=== PATIENT | female | born 1965 | race Caucasian/White ===

== ENCOUNTER 2021-06-18 21:03 | Inpatient (IN) ==
[2021-06-18] MEDS ORDERED: SODIUM CHLORIDE 0.9% 1000ML 1,000 ML IV SCH (21:30)
[2021-06-18 21:32] LABS: iSTAT Creatinine 0.6 mg/dl (0.6-1.3); iSTAT Hemoglobin 12.6 g/dl (12.0-16.0); iSTAT Ionized Calcium 1.2 mmol/l (1.12-1.32); iSTAT Potassium 3.9 mmol/L (3.3-5.0)
[2021-06-18 21:37] LABS: Basophils # (auto) 0.01 K/uL (0-0.2); Basophils % (auto) 0.2 %; Eosinophils # (auto) 0.11 K/uL (0-0.5); Eosinophils % (auto) 2.3 %; Hematocrit (blood only) 38.6 % (37-47); Hemoglobin 12.7 g/dL (12.0-16.0); Immature Granulocytes # (auto) 0.01 K/uL (0.00-0.02); Immature Granulocytes % (auto) 0.2 %; Lymphocytes # (auto) 0.77 K/uL (1.2-3.4); Lymphocytes % (auto) 16.1 %; Mean Corpuscular Hgb Conc 32.9 g/dL (32-36); Mean Corpuscular Volume 88.1 fL (80-100); Mean Platelet Volume 10.3 fL (7.4-10.4); Monocytes # (auto) 0.45 K/uL (0.11-0.59); Monocytes % (auto) 9.4 %; Neutrophils # (auto) 3.43 K/uL (1.4-6.5); Neutrophils % (auto) 71.8 %; Platelet Count 101 K/uL (130-400); RDW Coefficient of Variation 16.1 % (11.5-14.5); RDW Standard Deviation 52.1 fL (36.4-46.3); Red Blood Count 4.38 M/uL (4.2-5.4); White Blood Count 4.78 K/uL (4.8-10.8)
[2021-06-18] MEDS ORDERED: OPTIRAY 320 100ml IV ONE (21:43)
[2021-06-18 21:48] LABS: Prothrombin Time 10.6 Seconds (9.0-12.0)
[2021-06-18] MEDS ORDERED: PANTOprazole 80 MG in DEXTROSE 5% 100 ML IV ONE (21:53)
[2021-06-18] MEDS ORDERED: PANTOPRAZOLE BOLUS/DRIP 1 EA IV STA (21:53)
[2021-06-18] MEDS ORDERED: ONDANSETRON INJ 2 MG/ML 2 ML VIAL IV STA (21:53)
[2021-06-18 21:55] LABS: iSTAT Arterial Blood Gas HCO3 31 meg/L (19-24); iSTAT Arterial Blood Gas pCO2 55 mmHg (35-46); iSTAT Arterial Blood Gas pH 7.36 (7.35-7.45); iSTAT Arterial Blood Gas pO2 128 mmHg (80-95); iSTAT Carbon Dioxide 33 mmol/L (24-31); iSTAT Hematocrit 35 % (37-47); iSTAT Hemoglobin 11.9 g/dl (12.0-16.0); iSTAT Potassium 3.7 mmol/L (3.3-5.0); iSTAT Sodium 138 mmol/L (135-144)
--- NOTE | 2021-06-18 22:01 | Emergency Department Note ---
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 (135-144) mmol/L Sodium (136-145) mmol/L POC Potassium (3.3-5.0) mmol/L Potassium (3.5-5.1) mmol/L POC Chloride (101-112) mmol/L Chloride (98-107) mmol/L Carbon Dioxide (21-32) mmol/L POC Total CO2 (24-31) mmol/L Anion Gap (3-11) POC Anion Gap (16-25) mmol/L POC BUN (7-18) mg/dl BUN (7-18) mg/dl Creatinine (0.6-1.2) mg/dl POC Creatinine (0.6-1.3) mg/dl Est Cr Clr Drug Dosing Est GFR ( Amer) ml/min Est GFR (Non-Af Amer) ml/min BUN/Creatinine Ratio (10-20) Glucose (70-99) mg/dl POC Glucose 116 H (70-99) mg/dl POC Glucose (other) (70-99) mg/dl Calcium (8.5-10.1) mg/dl POC Ioniz Calcium Ginny (1.12-1.32) mmol/l Magnesium (1.8-2.4) mg/dl Total Bilirubin (0.2-1) mg/dl AST (15-37) U/L ALT (12-78) U/L Alkaline Phosphatase (45-117) U/L Total Creatine Kinase (26-192) U/L Troponin I (0-0.045) ng/ml NT-Pro-B Natriuret Pep (0-900) pg/ml Total Protein (6.4-8.2) gm/dl Albumin (3.4-5.0) gm/dl Globulin (2.5-4.0) gm/dl Albumin/Globulin Ratio (0.9-2) Lipase (73-393) U/L TSH (0.300-4.500) uIu/ml Urine Color Yellow Urine Appearance Clear (Clear) Urine pH 5.5 (4.5-7.5) Ur Specific [place] 1.021 (1.000-1.030) Urine Protein Negative (Negative) Urine Glucose (UA) Negative (Negative) Urine Ketones Negative (Negative) Urine Blood Negative (Negative) Urine Nitrite Negative (Negative) Urine Bilirubin Negative (Negative) Urine Urobilinogen Negative (Negative) Ur Leukocyte Esterase Negative (Negative) Urine Opiates Screen Neg (Neg) Ur Methadone, Qual Neg (Neg) Urine Barbiturates Neg (Neg) Ur Phencyclidine (PCP) Neg (Neg) U Amphetamin/Meth Scrn Pos H (Neg) MDMA (Ecstasy) Screen Pos H (Neg) U Benzodiazepines Scrn Neg (Neg) Ur Cocaine Metabolite Neg (Neg) U Marijuana (THC) Screen Pos H (Neg) Ethyl Alcohol mg/dL (0-3) mg/dl SARS-CoV-2, RNA, NAAT (NEGATIVE) 06/18/21 Range/Units 23:45 WBC (4.8-10.8) K/uL RBC (4.2-5.4) M/uL Hgb (12.0-16.0) g/dL POC Hgb (12.0-16.0) g/dl Hct (37-47) % POC Hct (37-47) % MCV (80-100) fL MCH (25-34) pg MCHC (32-36) g/dL RDW Std Deviation (36.4-46.3) fL RDW Coeff of Jeremy (11.5-14.5) % Plt Count (130-400) K/uL MPV (7.4-10.4) fL Immature Gran % (Auto) % Neut % (Auto) % Lymph % (Auto) % [place] % (Auto) % Eos % (Auto) % Baso % (Auto) % Neut # (Auto) (1.4-6.5) K/uL Lymph # (Auto) (1.2-3.4) K/uL [place] # (Auto) (0.11-0.59) K/uL Eos # (Auto) (0-0.5) K/uL Baso # (Auto) (0-0.2) K/uL Immature Gran # (Auto) (0.00-0.02) K/uL PT (9.0-12.0) Seconds INR (0.9-1.1) POC pH (7.35-7.45) POC pCO2 (35-46) mmHg POC pO2 (80-95) mmHg POC HCO3 (19-24) nrom/L POC Base Excess (-9-1.8) norm/L POC ABG O2 Sat (90-95) % POC Sodium (135-144) mmol/L Sodium (136-145) mmol/L POC Potassium (3.3-5.0) mmol/L Potassium (3.5-5.1) mmol/L POC Chloride (101-112) mmol/L Chloride (98-107) mmol/L Carbon Dioxide (21-32) mmol/L POC Total CO2 (24-31) mmol/L Anion Gap (3-11) POC Anion Gap (16-25) mmol/L POC BUN (7-18) mg/dl BUN (7-18) mg/dl Creatinine (0.6-1.2) mg/dl POC Creatinine (0.6-1.3) mg/dl Est Cr Clr Drug Dosing Est GFR ( Amer) ml/min Est GFR (Non-Af Amer) ml/min BUN/Creatinine Ratio (10-20) Glucose (70-99) mg/dl POC Glucose (70-99) mg/dl POC Glucose (other) (70-99) mg/dl Calcium (8.5-10.1) mg/dl POC Ioniz Calcium Ginny (1.12-1.32) mmol/l Magnesium (1.8-2.4) mg/dl Total Bilirubin (0.2-1) mg/dl AST (15-37) U/L ALT (12-78) U/L Alkaline Phosphatase (45-117) U/L Total Creatine Kinase (26-192) U/L Troponin I (0-0.045) ng/ml NT-Pro-B Natriuret Pep (0-900) pg/ml Total Protein (6.4-8.2) gm/dl Albumin (3.4-5.0) gm/dl Globulin (2.5-4.0) gm/dl Albumin/Globulin Ratio (0.9-2) Lipase (73-393) U/L TSH (0.300-4.500) uIu/ml Urine Color Urine Appearance (Clear) Urine pH (4.5-7.5) Ur Specific [place] (1.000-1.030) Urine Protein (Negative) Urine Glucose (UA) (Negative) Urine Ketones (Negative) Urine Blood (Negative) Urine Nitrite (Negative) Urine Bilirubin (Negative) Urine Urobilinogen (Negative) Ur Leukocyte Esterase (Negative) Urine Opiates Screen (Neg) Ur Methadone, Qual (Neg) Urine Barbiturates (Neg) Ur Phencyclidine (PCP) (Neg) U Amphetamin/Meth Scrn (Neg) MDMA (Ecstasy) Screen (Neg) U Benzodiazepines Scrn (Neg) Ur Cocaine Metabolite (Neg) U Marijuana (THC) Screen (Neg) Ethyl Alcohol mg/dL (0-3) mg/dl SARS-CoV-2, RNA, NAAT NEGATIVE (NEGATIVE) Imaging Data Radiologist's Impression: CT head: No ICH, mass-effect or edema. No calvarial fracture. Facial trauma/fractures. See dedicated report. Radiologist: Ting Stroud MD CT C-spine: No evidence of fracture or malalignment. Degenerative changes and spinal s tenosis. Glass opacities and emphysematous/fibrotic changes in the lungs. Radiologist: Ting Stroud MD CT facial: Fractures of the right orbit including the lateral, inferomedial and inferior rosales. Some herniation of orbital fat, correlate for any signs of impingement. The bony fragment in the inferior region extends to the inferior rectus muscle. Intraorbital emphysema and trace hemorrhage. The globe is normal in morphology. Comminuted fracture of the right maxillary sinus. Right periorbital and facial soft tissue injuries. Radiologist: Ting Stroud MD CT chest with contrast: No acute traumatic findings. Cardiomegaly. Bilateral pulmonary infiltrates and/or edema. Mild emphysematous changes. Cirrhosis with portal hypertension. Splenomegaly. Cholecystectomy. Mild thickening of the GE junction. Radiologist: Ting Stroud MD CT abdomen pelvis with contrast: No acute traumatic findings. Cirrhosis with portal hypertension. Splenomegaly and collaterals. Some fluid in the pelvis. Cholecystectomy. Thoracic findings as reported. Radiologist: Ting Stroud MD CT L-spine: No evidence of fracture or malalignment. Degenerative changes. Radiologist: Ting Stroud MD ECG Data Attestation: I personally reviewed and interpreted this ECG as follows: Indication: + altered mental status Rate (beats per minute): 70 Rhythm: + normal sinus ECG Intervals/blocks: + Normal QRS and + Prolonged QT ECG [place]: + Normal ECG ST segments: + Normal ST segments MDM Narrative This is a 56-year-old female brought in for altered mental status and facial trauma by EMS. Patient would open eyes to voice and will follow few simple commands, however was disoriented and could not provide much additional history. Patient was hemodynamically stable on arrival, labs drawn and sent, IV fluids started and patient sent for immediate trauma CT scans. No use of antiplatelet or anticoagulation therapy. Patient continue be monitored here, was rechecked frequently and remained hemodynamically stable. Patient slowly was able to provide some additional information for staff. Unfortunately patient became nauseated and did vomit what appeared to be bright red blood. Upon review in EMR of patient's history as well as findings and labs and imaging, I suspect patient likely has a history of alcohol abuse and given hematemesis I am concerned for possible occult GI bleed. It is unclear if patient may have been nauseated due to head trauma in addition or even drainage from blood down her throat which may have precipitated emesis also. Patient is thrombocytopenic although that appears stable compared to prior, mild elevation of INR consistent with likely underlying cirrhosis in addition. Patient started on Protonix bolus and drip as a precaution. Right orbital blowout fracture findings were discussed with Dr. Berger [facility]. He felt patient stable for conservative and nonsurgical approach, no need for urgent transfer based on those findings. No other acute traumatic injury noted. Case discussed with on-call hospitalist for additional monitoring given persistent altered mentation which ultimately may be due to the multiple substances found in her urine drug screen in addition monitoring due to the hematemesis observed in the emergency room in light of her history of cirrhosis, esophagitis, and possible alcohol abuse. An order was placed for continuous cardiac monitoring. The monitor shows a rate of _72_ with _normal sinus_ rhythm. Impression & Plan AMS (altered mental status), Hematemesis, Facial fracture, Contusion of face, Substance abuse Discharge Plan Visit Data Chief Complaint: Altered Mental Status Stated Complaint: Fall ED Provider: Lucia Zapien Discharge Problem: AMS (altered mental status), Hematemesis, Facial fracture, Contusion of face, Substance abuse Patient Disposition: Admitted As Inpatient Condition: Fair Discharge Instructions Interventions: ED Discharge Assessment Last Done: 06/19/21 00:52
[2021-06-18 22:11] LABS: Alanine Aminotransferase 20 U/L (12-78); Albumin Level 3.5 gm/dl (3.4-5.0); Aspartate Aminotransferase 23 U/L (15-37); BUN Creatinine Ratio 22.5 (10-20); Blood Urea Nitrogen 14 mg/dl (7-18); Calcium 9.7 mg/dl (8.5-10.1); Carbon Dioxide 26 mmol/L (21-32); Chloride 104 mmol/L (98-107); Est GFR (African American) 119.1 ml/min; Est GFR (Non-African American) 102.8 ml/min; Glucose 126 mg/dl (70-99); Lipase 140 U/L (73-393); Magnesium 2.3 mg/dl (1.8-2.4); Potassium 3.8 mmol/L (3.5-5.1); Sodium 139 mmol/L (136-145)
[2021-06-18] MEDS ORDERED: PANTOprazole 40 MG in DEXTROSE 5% 100 ML IV SCH (22:15)
[2021-06-18 22:22] LABS: Albumin Globulin Ratio 0.9 (0.9-2); Alkaline Phosphatase 98 U/L (45-117); Bilirubin,Total 0.5 mg/dl (0.2-1); Globulin 3.9 gm/dl (2.5-4.0); Total Protein 7.4 gm/dl (6.4-8.2); Troponin I < 0.015 ng/ml (0-0.045)
[2021-06-18] MEDS ORDERED: AMPICILLIN/SULBACTAM SOD 3,000 MG in 0.9 % SODIUM CHLORIDE 100 ML IV STA (23:26)
[2021-06-18] MEDS ORDERED: ALBUT/IPRATROP 3MG/0.5MG NEB 3 ML VIAL NEB STA (23:30)
[2021-06-18] MEDS ORDERED: DIPHTHERIA/TETANUS/PERTUSSIS 0.5 ML SYR/VIAL IM ONE (23:30)
[2021-06-18 23:43] LABS: Appearance Urine Clear (Clear); Bilirubin Urine Negative (Negative); Blood Urine Negative (Negative); Color Urine Yellow; Glucose Urine UA Negative (Negative); Ketones Urine Negative (Negative); Leukocyte Esterase Urine Negative (Negative); Nitrite Urine Negative (Negative); Protein Urine Negative (Negative); Specific Gravity Urine 1.021 (1.000-1.030); Urobilinogen Urine Negative (Negative); pH Urine 5.5 (4.5-7.5)
[2021-06-18] MEDS ORDERED: THIAMINE HCL 100 MG in SYRINGE 9 ML IV STA (23:55)
[2021-06-19 00:07] LABS: Amphetamines+Metham, Urine Pos (Neg); Barbiturates, Urine Neg (Neg); Benzodiazepine, Urine Neg (Neg); Cocaine, Urine Neg (Neg); MDMA (Ecstacy), Urine Pos (Neg); Methadone, Urine Neg (Neg); Opiate, Urine Neg (Neg); Phencyclidine, Urine Neg (Neg)
[2021-06-19 00:41] LABS: Creatine Kinase 99 U/L (26-192); NT Pro B Type Natriuretic Pept 22 pg/ml (0-900)
[2021-06-19] MEDS ORDERED: LIDO/EPINEPHRINE/SOD BICARB 20 ML VIAL ONE (00:50)
[2021-06-19 01:02] LABS: Hematocrit (blood only) 37.3 % (37-47); Hemoglobin 12.1 g/dL (12.0-16.0)
[2021-06-19] MEDS ORDERED: PROMETHAZINE HCL 12.5 MG in SODIUM CHLORIDE 0.9% 50 ML IV PRN (01:04)
[2021-06-19] MEDS ORDERED: NALOXONE HCL 0.4 MG/1 ML VIAL/CARP IV STA (01:37)
[2021-06-19] MEDS: NSS + 20MEQ KCL 20 MEQ/1,000 ML BAG IV SCH ×2 (02:24→23:35)
[2021-06-19] MEDS: cefTRIAXone SODIUM 2,000 MG in DEXTROSE 5% 50 ML IV SCH (02:24)
[2021-06-19] MEDS ORDERED: cefTRIAXone SODIUM 2000MG/70ML D5W IV ONE (02:56)
--- NOTE | 2021-06-19 03:20 | History & Physical Report ---
Date of Service June 19, 2021 Assessment & Plan (1) Encephalopathy: Plan: Likely secondary to substance abuse Home neuropsychotropic meds contributory ? Concussion injury UGI B Cirrhosis finding on initial CT read hx HCV sp Rx ? Possible alcohol abuse Differentials include MWT, gastritis, variceal bleed Patient currently hemodynamically stable Traumatic right orbital fracture mood disorder/personality disorder, unknown status prediabetes, hemoglobin A1c of 5.2 is January 2021 Ongoing tobacco abuse Medical telemetry [facility] Neurochecks Hold home neuropsychotropic meds for now IV PPI for UGI B Ceftriaxone for SBP prophylaxis in a cirrhotic patient with GI bleed GI consult Re: GI bleed, new diagnosis cirrhosis Trend H&H, transfuse PRBC if hemoglobin less than 7 and or for symptomatic anemia Maxillofacial consultation Re: Orbital fracture (ER provider already in touch with Dr. Berger.) Nicotine patch as needed DVT prophylaxis. SCDs Re: GI bleed Full code Patient daughter requesting updates from providers. Ms. Genia Tellez, contact #[phone]. Text document was generated using [employer] voice recognition software. It may contain grammatical or spelling errors. Kindly contact undersigned for clarification of any documentation item in question. Admission and Anticipated Discharge Date Admission Date: June 19, 2021 History of Present Illness Chief Complaint: Fall, head trauma, confusion as per records Primary Care Provider: Martha Hernandez PA-C History obtained from patient, family, and records. Limited history from patient secondary disoriented state. Medical history significant for mood disorder, personality disorder as per records, gout, HCV status post Rx, prediabetes, history of substance abuse as per family, ongoing tobacco abuse. Patient seen at the ER 2 weeks ago for right hand cellulitis. Improving with outpatient Keflex Rx as per outpatient PCP note from last week. Patient called her daughter on the phone last night telling her that she had fallen down. Patient sounded confused on the phone. Patient daughter alerted EMS. Patient daughter unaware of any recent stressors. Upon EMS arrival, patient found sitting on a toilet and responding to person only. Patient found to have facial trauma, bruising on the right eye. Following commands. Patient noted to be hypoxemic O2 sats noted to be 80s. Patient unable to give full account of what happened at home. Unable to answer questions regarding blurred vision, chest pain, S OB, syncope, abdominal pain. Patient with hematemesis episode at the ER. IV PPI initiated at the ER. 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, disabled Allergies Allergy/AdvReac Type Severity Reaction Status Date / Time Sulfa (Sulfonamide Allergy Intermediate Hives Verified 06/19/21 00:32 Antibiotics) amitriptyline [From Elavil] AdvReac Intermediate INCREASES Verified 06/19/21 00:32 RESTLESS LEGS prednisone AdvReac Intermediate Vomiting Verified 06/19/21 00:32 quetiapine [From Seroquel] AdvReac Intermediate INCREASES Verified 06/19/21 00:32 RESTLESS LEGS tramadol AdvReac Intermediate INCREASES Verified 06/19/21 00:32 RESTLESS LEGS trazodone AdvReac Intermediate INCREASES Verified 06/19/21 00:32 RESTLESS LEGS Home Medications Medication Instructions Recorded Confirmed Type acetaminophen 500 mg tablet 1,000 mg PO Q6H PRN 02/22/21 06/19/21 History (Tylenol Extra Strength) albuterol sulfate 90 mcg/actuation 2 puff INHALATION Q4H PRN 02/22/21 06/19/21 History aerosol inhaler calcium carbonate 600 mg (1,500 1 tab PO DAILY 02/22/21 06/19/21 History mg)-vitamin D3 200 unit tablet (Calcium 600 + D(3)) cholecalciferol (vitamin D3) 125 125 mcg PO QAM 02/22/21 06/19/21 History mcg (5,000 unit) tablet (Vitamin D3) citalopram 20 mg tablet (Celexa) 20 mg PO QAM 02/22/21 06/19/21 History cyanocobalamin (vitamin B-12) 2,500 mcg SUBLINGUAL QAM 02/22/21 06/19/21 History 2,500 mcg sublingual tablet (Vitamin B-12) cyclobenzaprine 10 mg tablet 10 mg PO TID PRN 02/22/21 06/19/21 History glucosamine 750 [id number] 1 tab PO BID 02/22/21 06/19/21 History no1 644 mg-C 30 mg-aundrea 1 mg tablet (Osteo Bi-Flex Triple Strength) lamotrigine 150 mg tablet 150 mg PO BID 02/22/21 06/19/21 History (Lamictal) melatonin 10 mg tablet 60 mg PO HS PRN 02/22/21 06/19/21 History pantoprazole 40 mg tablet,delayed 40 mg PO QAM 02/22/21 06/19/21 History release sulindac 200 mg tablet 200 mg PO BIDM 02/22/21 06/19/21 History vitamin E 400 unit capsule 400 unit PO QAM 02/22/21 06/19/21 History Probio Slim 2 cap PO BID 06/09/21 06/19/21 History cephalexin 500 mg capsule 500 mg PO Q6H 10 Days #40 cap 06/09/21 06/19/21 Rx ferrous sulfate 325 mg (65 mg 325 mg PO QAM 06/09/21 06/19/21 History iron) tablet hydrocodone 7.5 mg-acetaminophen 1 tab PO Q6H PRN 06/09/21 06/19/21 History 325 mg tablet ipratropium 0.5 mg-albuterol 3 mg 3 ml INHALATION .QID UD 06/09/21 06/19/21 History (2.5 mg base)/3 mL nebulization soln ondansetron 4 mg disintegrating 4 mg PO Q4H PRN #6 tab 06/09/21 06/19/21 Rx tablet potassium gluconate 550 mg (90 mg) 550 mg PO QAM 06/09/21 06/19/21 History tablet pramipexole 4.5 mg tablet,extended 4.5 mg PO DAILY 06/09/21 06/19/21 History release 24 hr (Mirapex ER) pregabalin 100 mg capsule (Lyrica) 100 mg PO TID 06/09/21 06/19/21 History celecoxib 100 mg capsule 100 mg PO BID 06/19/21 06/19/21 History doxycycline hyclate 100 mg tablet 100 mg PO BID 06/19/21 06/19/21 History risperidone 0.25 mg tablet 0.25 mg PO BID 06/19/21 06/19/21 History Past Med/Surg History Medical History Asthma Degenerative disc disease No pertinent family history Surgical History No pertinent past surgical history Social History Smoking Status: Current every day smoker Tobacco Type: Cigarettes Hx Alcohol Use: Yes Alcohol type: beer Preferred Language: [place] Feels Safe at Home: Yes Review of Systems Review of Systems: Could not be reliably obtained Physical Exam Physical Exam: GENERAL: Obtunded, no respiratory distress, obese SKIN: Normal color, warm HEENT: Periorbital ecchymosis right, pink palpebral conjunctivae, dry buccal mucosa, nasal cannula in place NECK : Supple, no tenderness CHEST : CTA, no tenderness HEART : RRR, no obvious murmurs ABDOMEN: Some distention, nontender EXTREMITIES : Minimal LE swelling, no LE tenderness, no other conspicuous deformities noted NEUROLOGIC : Obtunded, no facial asymmetry, no other gross focality Results & Data Results & Data ([facility]) Vital Signs (Past 12 Hours) Vital Signs Temp Pulse Pulse Resp BP BP Pulse Ox 06/19/21 01:13 36.5 C 71 24 125/88 97 06/19/21 00:20 71 20 136/70 96 06/18/21 23:50 70 15 96 06/18/21 23:43 73 18 98 06/18/21 23:40 67 13 100 06/18/21 23:30 68 12 105/83 97 06/18/21 23:20 67 14 96 06/18/21 23:00 76 16 109/73 96 06/18/21 22:43 68 14 149/84 H 99 06/18/21 22:30 68 14 122/71 06/18/21 22:15 70 16 109/83 100 06/18/21 22:03 92 06/18/21 22:02 68 12 128/75 92 06/18/21 21:54 67 16 146/97 H 93 06/18/21 21:44 99 06/18/21 21:36 72 14 148/79 H 97 06/18/21 21:04 70 139/84 100 Laboratory Results Laboratory Results WBC 4.78 K/uL (4.8-10.8) L 06/18/21 21:15 RBC 4.38 M/uL (4.2-5.4) 06/18/21 21:15 Hgb 12.1 g/dL (12.0-16.0) 06/19/21 00:48 POC Hgb 11.9 g/dl (12.0-16.0) L 06/18/21 21:42 Hct 37.3 % (37-47) 06/19/21 00:48 POC Hct 35 % (37-47) L 06/18/21 21:42 MCV 88.1 fL (80-100) 06/18/21 21:15 MCH 29.0 pg (25-34) 06/18/21 21:15 MCHC 32.9 g/dL (32-36) 06/18/21 21:15 RDW Std Deviation 52.1 fL (36.4-46.3) H 06/18/21 21:15 RDW Coeff of Jeremy 16.1 % (11.5-14.5) H 06/18/21 21:15 Plt Count 101 K/uL (130-400) L 06/18/21 21:15 MPV 10.3 fL (7.4-10.4) 06/18/21 21:15 Immature Gran % (Auto) 0.2 % 06/18/21 21:15 Neut % (Auto) 71.8 % 06/18/21 21:15 Lymph % (Auto) 16.1 % 06/18/21 21:15 [place] % (Auto) 9.4 % 06/18/21 21:15 Eos % (Auto) 2.3 % 06/18/21 21:15 Baso % (Auto) 0.2 % 06/18/21 21:15 Neut # (Auto) 3.43 K/uL (1.4-6.5) 06/18/21 21:15 Lymph # (Auto) 0.77 K/uL (1.2-3.4) L 06/18/21 21:15 [place] # (Auto) 0.45 K/uL (0.11-0.59) 06/18/21 21:15 Eos # (Auto) 0.11 K/uL (0-0.5) 06/18/21 21:15 Baso # (Auto) 0.01 K/uL (0-0.2) 06/18/21 21:15 Immature Gran # (Auto) 0.01 K/uL (0.00-0.02) 06/18/21 21:15 PT 10.6 Seconds (9.0-12.0) 06/18/21 21:15 INR 1.0 (0.9-1.1) 06/18/21 21:15 POC pH 7.36 (7.35-7.45) 06/18/21 21:42 POC pCO2 55 mmHg (35-46) H 06/18/21 21:42 POC pO2 128 mmHg (80-95) H 06/18/21 21:42 POC HCO3 31 norm/L (19-24) H 06/18/21 21:42 POC Total CO2 33 mmol/L (24-31) H 06/18/21 21:42 POC Base Excess 5.0 norm/L (-9-1.8) H 06/18/21 21:42 POC ABG O2 Sat 99.0 % (90-95) H 06/18/21 21:42 POC Sodium 138 mmol/L (135-144) 06/18/21 21:42 Sodium 139 mmol/L (136-145) 06/18/21 21:15 POC Potassium 3.7 mmol/L (3.3-5.0) 06/18/21 21:42 Potassium 3.8 mmol/L (3.5-5.1) 06/18/21 21:15 POC Chloride 102 mmol/L (101-112) 06/18/21 21:20 Chloride 104 mmol/L (98-107) 06/18/21 21:15 Carbon Dioxide 26 mmol/L (21-32) 06/18/21 21:15 POC Total CO2 26 mmol/L (24-31) 06/18/21 21:20 Anion Gap 9.0 (3-11) 06/18/21 21:15 POC Anion Gap 15.0 mmol/L (16-25) L 06/18/21 21:20 POC BUN 14 mg/dl (7-18) 06/18/21 21:20 BUN 14 mg/dl (7-18) 06/18/21 21:15 Creatinine 0.61 mg/dl (0.6-1.2) 06/18/21 21:15 POC Creatinine 0.6 mg/dl (0.6-1.3) 06/18/21 21:20 Est Cr Clr Drug Dosing Not Reportable 06/18/21 21:15 Est GFR ( Amer) 119.1 ml/min 06/18/21 21:15 Est GFR (Non-Af Amer) 102.8 ml/min 06/18/21 21:15 BUN/Creatinine Ratio 22.5 (10-20) H 06/18/21 21:15 Glucose 126 mg/dl (70-99) H 06/18/21 21:15 POC Glucose 116 mg/dl (70-99) H 06/18/21 21:45 POC Glucose (other) 122 mg/dl (70-99) H 06/18/21 21:20 Calcium 9.7 mg/dl (8.5-10.1) 06/18/21 21:15 POC Ioniz Calcium Ginny 1.20 mmol/l (1.12-1.32) 06/18/21 21:20 Magnesium 2.3 mg/dl (1.8-2.4) 06/18/21 21:15 Total Bilirubin 0.5 mg/dl (0.2-1) 06/18/21 21:15 AST 23 U/L (15-37) 06/18/21 21:15 ALT 20 U/L (12-78) 06/18/21 21:15 Alkaline Phosphatase 98 U/L (45-117) 06/18/21 21:15 Ammonia 38.0 umol/L (11-32) H 06/19/21 00:48 Total Creatine Kinase 99 U/L (26-192) 06/18/21 21:15 Troponin I < 0.015 ng/ml (0-0.045) 06/18/21 21:15 NT-Pro-B Natriuret Pep 22 pg/ml (0-900) 06/18/21 21:15 Total Protein 7.4 gm/dl (6.4-8.2) 06/18/21 21:15 Albumin 3.5 gm/dl (3.4-5.0) 06/18/21 21:15 Globulin 3.9 gm/dl (2.5-4.0) 06/18/21 21:15 Albumin/Globulin Ratio 0.9 (0.9-2) 06/18/21 21:15 Lipase 140 U/L (73-393) 06/18/21 21:15 TSH 2.410 uIu/ml (0.300-4.500) 06/18/21 21:15 Urine Color Yellow 06/18/21 23:05 Urine Appearance Clear (Clear) 06/18/21 23:05 Urine pH 5.5 (4.5-7.5) 06/18/21 23:05 Ur Specific [place] 1.021 (1.000-1.030) 06/18/21 23:05 Urine Protein Negative (Negative) 06/18/21 23:05 Urine Glucose (UA) Negative (Negative) 06/18/21 23:05 Urine Ketones Negative (Negative) 06/18/21 23:05 Urine Blood Negative (Negative) 06/18/21 23:05 Urine Nitrite Negative (Negative) 06/18/21 23:05 Urine Bilirubin Negative (Negative) 06/18/21 23:05 Urine Urobilinogen Negative (Negative) 06/18/21 23:05 Ur Leukocyte Esterase Negative (Negative) 06/18/21 23:05 Urine Opiates Screen Neg (Neg) 06/18/21 23:05 Ur Methadone, Qual Neg (Neg) 06/18/21 23:05 Urine Barbiturates Neg (Neg) 06/18/21 23:05 Ur Phencyclidine (PCP) Neg (Neg) 06/18/21 23:05 U Amphetamin/Meth Scrn Pos (Neg) H 06/18/21 23:05 MDMA (Ecstasy) Screen Pos (Neg) H 06/18/21 23:05 U Benzodiazepines Scrn Neg (Neg) 06/18/21 23:05 Ur Cocaine Metabolite Neg (Neg) 06/18/21 23:05 U Marijuana (THC) Screen Pos (Neg) H 06/18/21 23:05 Ethyl Alcohol mg/dL < 3.0 mg/dl (0-3) 06/18/21 21:38 SARS-CoV-2, RNA, NAAT NEGATIVE (NEGATIVE) 06/18/21 23:45 Blood Type B Positive 06/19/21 00:48 Antibody Screen NEGATIVE 06/19/21 00:[address] head initial read: No ICH, mass-effect or edema. No calvarial fracture. Facial trauma/fractures. CT C-spine initial read: No evidence of fracture or malalignment. Degenerative changes and spinal stenosis. Glass opacities and emphysematous/fibrotic changes in the lungs. CT facial initial read: Fractures of the right orbit including the lateral, inferomedial and inferior rosales. Some herniation of orbital fat, correlate for any signs of impingement. The bony fragment in the inferior region extends to the inferior rectus muscle. Intraorbital emphysema and trace hemorrhage. The globe is normal in morphology. Comminuted fracture of the right maxillary sinus. Right periorbital and facial soft tissue injuries. CT chest with contrast initial read: No acute traumatic findings. Cardiomegaly. Bilateral pulmonary infiltrates and/or edema. Mild emphysematous changes. Cirrhosis with portal hypertension. Splenomegaly. Cholecystectomy. Mild thickening of the GE junction. CT abdomen pelvis with contrast initial read: No acute traumatic findings. Cirrhosis with portal hypertension. Splenomegaly and collaterals. Some fluid in the pelvis. Cholecystectomy. Thoracic findings as reported. CT L-spine initial read: No evidence of fracture or malalignment. Degenerative changes. EKG as per my interpretation: Rate 70, NSR, normal axis, T wave abnormality septal leads Code Status & VTE Plan VTE Prophylaxis Plan VTE Prophylaxis will be ordered: Yes
[2021-06-19 06:24] LABS: Hematocrit (blood only) 40.6 % (37-47); Hemoglobin 12.8 g/dL (12.0-16.0); Mean Corpuscular Hemoglobin 28.3 pg (25-34); Mean Corpuscular Hgb Conc 31.5 g/dL (32-36); Mean Corpuscular Volume 89.8 fL (80-100); RDW Coefficient of Variation 16.2 % (11.5-14.5); Red Blood Count 4.52 M/uL (4.2-5.4); White Blood Count 5.65 K/uL (4.8-10.8)
[2021-06-19 06:53] LABS: Albumin Level 3.2 gm/dl (3.4-5.0); BUN Creatinine Ratio 18.3 (10-20); Calcium 9.5 mg/dl (8.5-10.1); Creatinine Clr Calc Pharmacy 135.8 ml/min; Est GFR (African American) 124.8 ml/min; Est GFR (Non-African American) 107.6 ml/min; Potassium 4.2 mmol/L (3.5-5.1)
[2021-06-19 06:55] LABS: Albumin Globulin Ratio 0.8 (0.9-2); Bilirubin,Total 0.5 mg/dl (0.2-1); Globulin 3.9 gm/dl (2.5-4.0); Total Protein 7.1 gm/dl (6.4-8.2)
[2021-06-19 07:00] LABS: Basophils # (auto) 0.01 K/uL (0-0.2); Basophils % (auto) 0.2 %; Eosinophils # (auto) 0.09 K/uL (0-0.5); Eosinophils % (auto) 1.6 %; Lymphocytes # (auto) 0.77 K/uL (1.2-3.4); Lymphocytes % (auto) 13.6 %; Mean Platelet Volume 10.2 fL (7.4-10.4); Monocytes # (auto) 0.29 K/uL (0.11-0.59); Monocytes % (auto) 5.1 %; Neutrophils # (auto) 4.49 K/uL (1.4-6.5); Neutrophils % (auto) 79.5 %; Platelet Count 88 K/uL (130-400); Platelet Estimate Decreased (Normal)
[2021-06-19] MEDS ORDERED: Influenza Vaccine (Fluarix) 0.5 ML SYR (Standard Dose) IM ONE (08:00)
--- NOTE | 2021-06-19 08:06 | CT Scan Report ---
CT head/brain wo con CLINICAL HISTORY: trauma Technique: Contiguous axial CT images of the head were acquired from the base of the skull to the kolby yamile without intravenous contrast administration. Images were viewed in brain, subdural and bone [facility]. Automated dose lowering techniques and/or adjustment according to patient size were utilized for this exam. Comparison: Comparison is made to CT chest 02/22/2021 Findings: The ventricles, basal cisterns, and cerebral sulci are normal. There is no acute intracranial hemorrh age or evidence of acute territorial infarction. Neither mass effect, shift of the midline structures , nor abnormal extra-axial fluid collections are shown. Imaged portions of the paranasal sinuses and mastoid air cells are clear. The orbits appear normal. Please see CT maxillofacial for detailed findings of skull fractures. Impression: No acute intracranial abnormality. Please see dedicated maxillofacial CT for detailed findings of fac ial fractures. ACT 112: Negative or not required by law. Electronically signed by: Gab Murphy M.D. 06/19/2021 8:05 AM
--- NOTE | 2021-06-19 08:14 | CT Scan Report ---
CT facial bones wo con CLINICAL HISTORY: trauma TECHNIQUE: Multidetector row helical CT of the maxillofacial bones was performed without administrati on of intravenous contrast, and processed with bone and soft tissue algorithms. Coronal and sagittal reformations were obtained. Automated dose lowering techniques and/or adjustment according to patient size were utilized for this exam. Comparison: None available at the time of this dictation. FINDINGS: There is a fracture of the right orbit involving the inferior, lateral, and medial rosales. Fractures o f all 3 rosales of the right maxillary sinus are noted. Nasal bones are normal. The mandible is intact. The temporomandibular joints are anatomically aligned. Pterygoid plates are intact. Zygomatic arche s are intact. The globes are normal and symmetric, without proptosis, obvious disruption or lens dislocation. Ther e is no orbital radiopaque foreign body. Multiple gas locules are noted in the retrobulbar fat on the right. The extraocular muscles are normal and in particular there is no evidence of herniation or en trapment. Mild inferior herniation of the retrobulbar fat is seen. Optic nerve sheath complexes are n ormal in course and caliber. Air-fluid level in the right maxillary sinus with hyperdense fluid compatible with hemorrhage. There is a mucous retention cyst in the left sphenoid sinus and opacification of scattered ethmoid air cell s. IMPRESSION: Fractures of the inferior, lateral, and medial rosales of the right orbit and mildly comminuted fractur es of all 3 rosales in the maxillary sinus. The optic nerve and extraocular muscles are unremarkable. T here is retrobulbar emphysema and fat herniation. ACT 112: Negative or not required by law. Electronically signed by: Gab Murphy M.D. 06/19/2021 8:13 AM
--- NOTE | 2021-06-19 08:19 | CT Scan Report ---
CT cervical spine wo con CLINICAL HISTORY: trauma TECHNIQUE: Multidetector row helical CT of the cervical spine was performed without administration of intravenous contrast. Coronal and sagittal reformations were obtained. Automated dose lowering techn iques and/or adjustment according to patient size were utilized for this exam. Comparison: Comparison is made to CT cervical spine 02/22/2021 FINDINGS: No acute fractures or subluxations are identified. The alignment is normal. Multilevel degenerative c hanges are seen most prominent at C5-C6 and C6-C7. Partial visualization of groundglass opacities in the lung apices, better evaluated on CT chest performed same day. IMPRESSION: Degenerative changes without evidence of acute bony injury. ACT 112: Negative or not required by law. Electronically signed by: Gab Murphy M.D. 06/19/2021 8:18 AM
--- NOTE | 2021-06-19 08:28 | CT Scan Report ---
CT chest diagnostic w con CLINICAL HISTORY: trauma TECHNIQUE: Multidetector row helical CT of the chest was performed. Coronal and sagittal reformations were obtained. Automated dose lowering techniques and/or adjustment according to patient size were u tilized for this exam. Comparison: None available at the time of this dictation. FINDINGS: Lungs and pleura: Diffuse groundglass and consolidative opacities are seen favoring the lower lungs. There are scattered emphysematous changes. Bronchial wall thickening is seen with mosaic attenuation. Heart and pericardium: There is cardiomegaly without evidence of pericardial effusion. Vessels: The pulmonary trunk measures 30 mm in diameter. Mediastinum and thomas: Unremarkable. Chest wall and lower neck: Unremarkable. Abdomen: For findings below the diaphragm, please refer to CT of the abdomen dated the same. Bones: Unremarkable. IMPRESSION: 1. No evidence of acute fracture. 2. Multifocal groundglass and consolidative opacities which may represent aspiration and/or pneumoni a. 3. Cardiomegaly. ACT 112: Negative or not required by law. Electronically signed by: Gab Murphy M.D. 06/19/2021 8:26 AM
--- NOTE | 2021-06-19 08:34 | CT Scan Report ---
CT abd pelvis IV con only CLINICAL HISTORY: trauma TECHNIQUE: Helical axial images of the abdomen and pelvis were obtained and displayed. Automated dose lowering techniques and/or adjustment according to patient size were utilized for this exam. This e xam was performed with intravenous contrast. COMPARISON: Comparison is made to CT abdomen pelvis 02/22/2021 FINDINGS: Lower chest: For findings above the diaphragm, please see CT chest performed same day. Liver: Nodular contour of the liver is seen compatible with cirrhosis. Gallbladder and biliary tree: Patient is status post cholecystectomy. No intra- or extrahepatic bilia ry ductal dilation. Pancreas: Unremarkable, no focal lesions. Spleen: Unremarkable. Adrenals: Unremarkable. Kidneys and ureters: Unremarkable. Bladder: Unremarkable. Reproductive organs: Unremarkable. Bowel: A duodenal diverticulum is seen. Lymph nodes Retroperitoneal: Unremarkable. Mesenteric: Unremarkable. Pelvic: Unremarkable. Peritoneum: Normal Vessels: Atherosclerotic calcifications are seen. Abdominal wall: Unremarkable. Bones: Degenerative changes in the visualized spine. IMPRESSION: No evidence of acute abnormality. Cirrhosis, splenomegaly, and likely portal hypertension noted. ACT 112: Negative or not required by law. Electronically signed by: Gab Murphy M.D. 06/19/2021 8:33 AM
--- NOTE | 2021-06-19 08:41 | CT Scan Report ---
CT lumbar spine w con CLINICAL HISTORY: trauma TECHNIQUE: Multidetector row helical CT of the lumbar spine was performed without administration of i ntravenous contrast. Coronal and sagittal reformations were obtained. Automated dose lowering techniq ues and/or adjustment according to patient size were utilized for this exam. Comparison: None available at the time of this dictation. FINDINGS: For counting purposes, the last complete intervertebral disc space is considered L5-S1. No acute fractures are identified. Degenerative changes are noted in the visualized spine. Vertebral body alignment is within normal limits. Surrounding soft tissues are unremarkable. IMPRESSION: No evidence of acute fracture or traumatic subluxation. ACT 112: Negative or not required by law. Electronically signed by: Gab Murphy M.D. 06/19/2021 8:40 AM
--- NOTE | 2021-06-19 09:01 | Gastrointestinal Consultation ---
Date of Consultation June 19, 2021 Assessment & Plan (1) Compensated HCV cirrhosis: Apparently a known cirrhosis but pt has not been receiving regular f/u for this, no recent EGDs. Will need low salt diet, avoidance of tylenol/alcohol and need to address + drug use on toxicology. Will need OP GI f/u for Q 6m liver imaging, MELD labs etc. There does not seem to be signs of encephalopathy present (awake, alert, oriented though is somewhat sleepy; no asterixes). Should avoid meds that are sedating such as benzos. (2) Hematemesis: In the setting of cirrhosis. One dose of Cipro; Octreotide drip (in case there are varices present). Pantoprazole drip. Should not be on regular NSAIDs. Please carefully monitor outputs. Please keep NPO. EGD today. Further recommendations to follow endoscopy. Supervising Physician Co-Signing Physician Notes I performed a history and physical examination of the patient today, including specifically on physical exam - soft abdomen. I have discussed the patient's management with the advanced practitioner. Please refer to the nurse practitioner's note for the documented findings and plan of care. EGD today Patient was explained in detail regarding risks, benefits, limitations and alternatives of the above endoscopic procedure. Risks of intravenous sedation used for procedure were also explained. Risks include, but not limited to perforation, bleeding, infection, respiratory distress, cardiac arrest and . Patient is also aware about the possibility of missed lesion. Patient's questions were answered. The patient verbalized understanding the information and agreed to undergo the procedure. History of Present Illness Reason for Consultation: UGI Bleed Requesting Physician: Dr. Jon Attending Physician: Yomi Solis MD History of Present Illness Ms. Natacha Grande is a 56 yr old female pt of [facility] with a hx of bipolar, chronic back pain from DDD and spinal stenosis, bipolar disease. She presented to the ED late yesterday for a fall with facial trauma. around 3AM this morning, she vomited blood. She remains hemodynamically stable w/o hypotension or tachycardia and her Hb is normal at12.8, BUN is normal at 10. She hasn't had further emesis. She is awake, alert, oriented to difficult to understand due to poor dentition, facial swelling. She has a garbled speech. She reports that she has had abdominal pain, poor appetite but unsure when this began. When asked about the finding of cirrhosis on CT, she says that she has HCV cirrhosis post tx in 2016 and has had low WBCs since that tx. She does not believe that she has varices but says she hasn't had un upper scope, "for years." Her OP records show that she is on Sulindac and celecoxib regularly and when asked she says she is taking ibuprofen. She reports constipation, black BMs (on iron), gags often but no vomiting. She admits to marijuana use and denies recent alcohol intake or other recreational drug use but tox is + for ecstasy and amphetamines. She moved here from [place] in October. OP records reviewed - shows that she has very intermittent care with many missed appts and it does not appear that she had told her PCP that she has cirrhosis. Allergies Allergy/AdvReac Type Severity Reaction Status Date / Time Sulfa (Sulfonamide Allergy Intermediate Hives Verified 06/19/21 00:32 Antibiotics) amitriptyline [From Elavil] AdvReac Intermediate INCREASES Verified 06/19/21 00:32 RESTLESS LEGS prednisone AdvReac Intermediate Vomiting Verified 06/19/21 00:32 quetiapine [From Seroquel] AdvReac Intermediate INCREASES Verified 06/19/21 00:32 RESTLESS LEGS tramadol AdvReac Intermediate INCREASES Verified 06/19/21 00:32 RESTLESS LEGS trazodone AdvReac Intermediate INCREASES Verified 06/19/21 00:32 RESTLESS LEGS Home Medications Medication Instructions Recorded Confirmed Type acetaminophen 500 mg tablet 1,000 mg PO Q6H PRN 02/22/21 06/19/21 History (Tylenol Extra Strength) albuterol sulfate 90 mcg/actuation 2 puff INHALATION Q4H PRN 02/22/21 06/19/21 History aerosol inhaler calcium carbonate 600 mg (1,500 1 tab PO DAILY 02/22/21 06/19/21 History mg)-vitamin D3 200 unit tablet (Calcium 600 + D(3)) cholecalciferol (vitamin D3) 125 125 mcg PO QAM 02/22/21 06/19/21 History mcg (5,000 unit) tablet (Vitamin D3) citalopram 20 mg tablet (Celexa) 20 mg PO QAM 02/22/21 06/19/21 History cyanocobalamin (vitamin B-12) 2,500 mcg SUBLINGUAL QAM 02/22/21 06/19/21 History 2,500 mcg sublingual tablet (Vitamin B-12) cyclobenzaprine 10 mg tablet 10 mg PO TID PRN 02/22/21 06/19/21 History glucosamine 750 [id number] 1 tab PO BID 02/22/21 06/19/21 History no1 644 mg-C 30 mg-aundrea 1 mg tablet (Osteo Bi-Flex Triple Strength) lamotrigine 150 mg tablet 150 mg PO BID 02/22/21 06/19/21 History (Lamictal) melatonin 10 mg tablet 60 mg PO HS PRN 02/22/21 06/19/21 History pantoprazole 40 mg tablet,delayed 40 mg PO QAM 02/22/21 06/19/21 History release sulindac 200 mg tablet 200 mg PO BIDM 02/22/21 06/19/21 History vitamin E 400 unit capsule 400 unit PO QAM 02/22/21 06/19/21 History Probio Slim 2 cap PO BID 06/09/21 06/19/21 History cephalexin 500 mg capsule 500 mg PO Q6H 10 Days #40 cap 06/09/21 06/19/21 Rx ferrous sulfate 325 mg (65 mg 325 mg PO QAM 06/09/21 06/19/21 History iron) tablet hydrocodone 7.5 mg-acetaminophen 1 tab PO Q6H PRN 06/09/21 06/19/21 History 325 mg tablet ipratropium 0.5 mg-albuterol 3 mg 3 ml INHALATION .QID UD 06/09/21 06/19/21 History (2.5 mg base)/3 mL nebulization soln ondansetron 4 mg disintegrating 4 mg PO Q4H PRN #6 tab 06/09/21 06/19/21 Rx tablet potassium gluconate 550 mg (90 mg) 550 mg PO QAM 06/09/21 06/19/21 History tablet pramipexole 4.5 mg tablet,extended 4.5 mg PO DAILY 06/09/21 06/19/21 History release 24 hr (Mirapex ER) pregabalin 100 mg capsule (Lyrica) 100 mg PO TID 06/09/21 06/19/21 History celecoxib 100 mg capsule 100 mg PO BID 06/19/21 06/19/21 History doxycycline hyclate 100 mg tablet 100 mg PO BID 06/19/21 06/19/21 History risperidone 0.25 mg tablet 0.25 mg PO BID 06/19/21 06/19/21 History Patient History Medical History Asthma Degenerative disc disease No pertinent family history Surgical History No pertinent past surgical history Social History Smoking Status: Current every day smoker Tobacco Type: Cigarettes Hx Alcohol Use: Yes Alcohol type: beer Preferred Language: Setswana Feels Safe at Home: Yes Review of Systems Review of Systems: ROS: Gen: + reports fevers, weakness; unsure if weight loss/gain Eyes: Ecchymosis around right eye. No eye redness, or pain, no recent vision changes Resp: No SOB, no cough Cardio: No palpitations/irregular beats, no chest pain GI: As per HPI, otherwise negative. : Denies pain on urination Skin: No jaundice, itching or new rashes M/S + chronic back and bilat knee pain Physical Exam Constitutional: well developed, + ill appearing and cooperative Eyes: PERRL, conjunctivae normal, anicteric sclerae Respiratory: normal respiratory effort, lungs clear to auscultation Cardiovascular: RRR, no murmur, no edema Gastrointestinal (Abdomen): Percussion/Palpation: + abdomen tender (Mild diffuse adbdominal msk tenderness. No signs of acute abdomen.) and abdomen soft; no guarding and abdomen not rigid Skin: normal turgor ++ecchymosis around right eye, swelling and some ecchymosis around her mouth; multiple other small other bruises Neurologic: PERRL, EOMI, accommodation nl, no face palsy, no dysarthria awake; not confused Psychiatric: Orientation: alert, oriented x 3 and cooperative Somewhat anx ious/agitated/moving around in the bed continually when awake but doesn't attempt to get out of bed. Lymphatic: no cervical or axillary lymphadenopathy Results & Data ([facility]) Vital Signs (Past 12 Hours) Vital Signs Temp Pulse Pulse Resp BP BP Pulse Ox 06/19/21 05:17 65 20 133/77 95 06/19/21 01:13 36.5 C 71 24 125/88 97 06/19/21 00:20 71 20 136/70 96 06/18/21 23:50 70 15 96 06/18/21 23:43 73 18 98 06/18/21 23:40 67 13 100 06/18/21 23:30 68 12 105/83 97 06/18/21 23:20 67 14 96 06/18/21 23:00 76 16 109/73 96 06/18/21 22:43 68 14 149/84 H 99 06/18/21 22:30 68 14 122/71 06/18/21 22:15 70 16 109/83 100 06/18/21 22:03 92 06/18/21 22:02 68 12 128/75 92 06/18/21 21:54 67 16 146/97 H 93 06/18/21 21:44 99 06/18/21 21:36 72 14 148/79 H 97 06/18/21 21:04 70 139/84 100 Laboratory Results WBC 5.6, Hb 12.8, Hct 40.6, Plts 88, Na 138, K 4.2, BUN 10, Cr 0.53, Plts 97 Diagnostic Findings CTAP w IV contrast 06/18/21: Cirrhosis, splenomegaly, and likely portal hypertension noted. (no mention of varices) Chest CT 06/18/21: 1. No evidence of acute fracture. 2. Multifocal groundglass and consolidative opacities which may represent aspiration and/or pneumonia. 3. Cardiomegaly. Face CT: Fractures of the inferior, lateral, and medial rosales of the right orbit and mildly comminuted fractures of all 3 rosales in the maxillary sinus. The optic nerve and extraocular muscles are unremarkable. There is retrobulbar emphysema and fat herniation. Cervical and Lumbar CTs with DDD no fractures. Head CT: No acute intracranial abnormality. Please see dedicated maxillofacial CT for detailed findings of facial fractures. Medications Administered Pantoprazole Drip
[2021-06-19] MEDS ORDERED: OCTREOTIDE ACETATE 100 MCG in SYRINGE 9 ML IV ONE (09:30)
[2021-06-19] MEDS: CIPROFLOXACIN / D5W 400 MG/200 ML BAG IV SCH ×2 (11:13→21:04)
[2021-06-19] MEDS: PANTOprazole 40 MG in SYRINGE 0 ML IV SCH ×2 (11:13→20:58)
[2021-06-19] MEDS: MULTIVITAMIN TAB PO SCH (11:13)
[2021-06-19] MEDS: OCTREOTIDE ACETATE 500 MCG in 0.9 % SODIUM CHLORIDE 100 ML IV SCH ×2 (11:13→22:21)
[2021-06-19] MEDS: FOLIC ACID 1 MG TAB PO SCH (11:13)
--- NOTE | 2021-06-19 11:53 | Anesthesiology Consultation ---
Date of Service June 19, 2021 Assessment & Plan (1) Encounter for pre-operative examination: Chart Review Chart Review: Acceptable Risk for Surgery and Patient NOT seen in Pre Admission Testing Consults Requested none History Surgery Operation Date: 06/19/21 11:00 Proposed Procedures p Esophagogastroduodenoscopy - Milana Corrales MD Operation Date: 06/19/21 17:15 Proposed Procedures p Esophagogastroduodenoscopy Dr Corrales - Milana Corrales MD Height/Weight Height: 5 ft 3 in Weight: 98.6 kg Allergies Allergy/AdvReac Type Severity Reaction Status Date / Time Sulfa (Sulfonamide Allergy Intermediate Hives Verified 06/19/21 00:32 Antibiotics) amitriptyline [From Elavil] AdvReac Intermediate INCREASES Verified 06/19/21 00:32 RESTLESS LEGS prednisone AdvReac Intermediate Vomiting Verified 06/19/21 00:32 quetiapine [From Seroquel] AdvReac Intermediate INCREASES Verified 06/19/21 00:32 RESTLESS LEGS tramadol AdvReac Intermediate INCREASES Verified 06/19/21 00:32 RESTLESS LEGS trazodone AdvReac Intermediate INCREASES Verified 06/19/21 00:32 RESTLESS LEGS Medications Home Medications Medication Instructions Recorded Confirmed Last Taken acetaminophen 500 mg tablet 1,000 mg PO Q6H PRN 02/22/21 06/19/21 06/09/21 (Tylenol Extra Strength) albuterol sulfate 90 mcg/actuation 2 puff INHALATION Q4H PRN 02/22/21 06/19/21 Unknown aerosol inhaler calcium carbonate 600 mg (1,500 1 tab PO DAILY 02/22/21 06/19/21 06/09/21 mg)-vitamin D3 200 unit tablet (Calcium 600 + D(3)) cholecalciferol (vitamin D3) 125 125 mcg PO QAM 02/22/21 06/19/21 06/09/21 mcg (5,000 unit) tablet (Vitamin D3) citalopram 20 mg tablet (Celexa) 20 mg PO QAM 02/22/21 06/19/21 06/09/21 cyanocobalamin (vitamin B-12) 2,500 mcg SUBLINGUAL QAM 02/22/21 06/19/21 06/09/21 2,500 mcg sublingual tablet (Vitamin B-12) cyclobenzaprine 10 mg tablet 10 mg PO TID PRN 02/22/21 06/19/21 06/09/21 glucosamine 750 [id number] 1 tab PO BID 02/22/21 06/19/21 06/09/21 no1 644 mg-C 30 mg-aundrea 1 mg tablet (Osteo Bi-Flex Triple Strength) lamotrigine 150 mg tablet 150 mg PO BID 02/22/21 06/19/21 06/09/21 (Lamictal) melatonin 10 mg tablet 60 mg PO HS PRN 02/22/21 06/19/21 06/08/21 pantoprazole 40 mg tablet,delayed 40 mg PO QAM 02/22/21 06/19/21 06/09/21 release sulindac 200 mg tablet 200 mg PO BIDM 02/22/21 06/19/21 06/09/21 vitamin E 400 unit capsule 400 unit PO QAM 02/22/21 06/19/21 06/09/21 Probio Slim 2 cap PO BID 06/09/21 06/19/21 06/09/21 cephalexin 500 mg capsule 500 mg PO Q6H 10 Days #40 cap 06/09/21 06/19/21 Unknown ferrous sulfate 325 mg (65 mg 325 mg PO QAM 06/09/21 06/19/21 06/09/21 iron) tablet hydrocodone 7.5 mg-acetaminophen 1 tab PO Q6H PRN 06/09/21 06/19/21 Unknown 325 mg tablet ipratropium 0.5 mg-albuterol 3 mg 3 ml INHALATION .QID UD 06/09/21 06/19/21 06/09/21 (2.5 mg base)/3 mL nebulization soln ondansetron 4 mg disintegrating 4 mg PO Q4H PRN #6 tab 06/09/21 06/19/21 Unknown tablet potassium gluconate 550 mg (90 mg) 550 mg PO QAM 06/09/21 06/19/21 06/09/21 tablet pramipexole 4.5 mg tablet,extended 4.5 mg PO DAILY 06/09/21 06/19/21 06/09/21 release 24 hr (Mirapex ER) pregabalin 100 mg capsule (Lyrica) 100 mg PO TID 11/04/2106/19/21 06/09/21 celecoxib 100 mg capsule 100 mg PO BID 06/19/21 06/19/21 Unknown doxycycline hyclate 100 mg tablet 100 mg PO BID 06/19/21 06/19/21 Unknown risperidone 0.25 mg tablet 0.25 mg PO BID 06/19/21 06/19/21 Unknown Active Medications Generic Name Dose Route Start Last Admin Trade Name Misael PRN Reason Stop Dose Admin Folic Acid 1 mg 06/19/21 09:00 06/19/21 11:13 Folic Acid 1 Mg Tab PO 07/19/21 08:59 1 mg QAM IRON Administration Ceftriaxone Sodium 2,000 mg/ 70 mls @ 100 mls/hr 06/19/21 02:00 06/19/21 03:06 Dextrose IV 06/29/21 01:59 Infused Q24H IRON Infusion Protocol Pantoprazole Sodium 40 mg/ 10 mls @ 5 mls/min 06/19/21 09:00 06/19/21 11:13 Syringe IV 07/19/21 08:59 5 mls/min BID IRON Administration Potassium Chloride/Sodium Chloride 20 meq in 1,000 mls @ 60 mls/hr 06/19/21 02:00 06/19/21 02:24 Normal Saline W/20 Meq Kcl IV 07/19/21 01:59 60 mls/hr .[id number] IRON Administration Ciprofloxacin 400 mg in 200 mls @ 100 mls/hr 06/19/21 09:30 06/19/21 11:13 Cipro / D5w IV 06/29/21 09:29 100 mls/hr Q12 IRON Administration Protocol Octreotide Acetate 500 mcg/ 105 mls @ 10.5 mls/hr 06/19/21 09:30 06/19/21 11:13 Sodium Chloride IV 07/19/21 09:29 50 mcg/hr .Q10H IRON 10.5 mls/hr Administration 50 MCG/HR Multivitamins 1 tab 06/19/21 09:00 06/19/21 11:13 Multivitamin Tab PO 07/19/21 08:59 1 tab QAM IRON Administration Past Medical History Medical History Asthma Degenerative disc disease No pertinent family history Past Surgical History Surgical History No pertinent past surgical history Social History Smoking Status: Current every day smoker Hx Alcohol Use: Yes Alcohol type: beer Physical Exam Vital Signs Last Vital Signs Temp 97.7 F 06/19/21 01:13 Pulse 65 06/19/21 05:17 Resp 20 06/19/21 05:17 BP 133/77 06/19/21 05:17 Pulse Ox 95 06/19/21 05:17 Testing Laboratory Results 06/19/21 06:03 06/19/21 06:03 PT 10.6 Seconds (9.0-12.0) 06/18/21 21:15 INR 1.0 (0.9-1.1) 06/18/21 21:15 Urine Color Yellow 06/18/21 23:05 Urine Appearance Clear (Clear) 06/18/21 23:05 Urine pH 5.5 (4.5-7.5) 06/18/21 23:05 Ur Specific [place] 1.021 (1.000-1.030) 06/18/21 23:05 Urine Protein Negative (Negative) 06/18/21 23:05 Urine Glucose (UA) Negative (Negative) 06/18/21 23:05 Urine Ketones Negative (Negative) 06/18/21 23:05 Urine Nitrite Negative (Negative) 06/18/21 23:05 Ur Leukocyte Esterase Negative (Negative) 06/18/21 23:05 Blood Type B Positive 06/19/21 00:48 Antibody Screen NEGATIVE 06/19/21 00:48 Electrocardiogram Date: 06/18/21 Findings: + NSR @
[2021-06-19 12:07] LABS: Hematocrit (blood only) 37.4 % (37-47)
[2021-06-19] MEDS ORDERED: PROPOFOL IV EMULSION 10 MG/ML 20 ML VIAL IV ONE (12:52)
[2021-06-19] MEDS ORDERED: LIDOCAINE 2% 2 ML VIAL/AMP(20MG/ML) INFIL ONE (12:52)
[2021-06-19] MEDS ORDERED: SUCCINYLCHOLINE CHLORIDE 20 MG/ML 10 ML VIAL IV ONE (12:52)
[2021-06-19] MEDS ORDERED: MIDAZOLAM HCL 1 MG/ML 2ML VIAL ONE (12:53)
[2021-06-19] MEDS ORDERED: fentaNYL citrate 100 MCG/2 ML VIAL ONE (12:53)
[2021-06-19] MEDS ORDERED: PROMETHAZINE HCL 6.25 MG in SODIUM CHLORIDE 0.9% 50 ML IV PRN (13:28)
[2021-06-19] MEDS ORDERED: ONDANSETRON INJ 2 MG/ML 2 ML VIAL IV PRN (13:28)
[2021-06-19] MEDS ORDERED: ATROPINE SULFATE 0.1 MG/ML 10ML SYR IV PRN (13:28)
[2021-06-19] MEDS ORDERED: ePHEDrine sulfate 50 MG/ML AMP IV PRN (13:28)
--- NOTE | 2021-06-19 13:55 | Operative Report ---
Post Operative Report Pre & Post Diagnosis Operation Date: 06/19/21 11:00 <No data on this case meets the specified criteria> Operation Date: 06/19/21 17:15 <No data on this case meets the specified criteria> I identified the patient and participated in the time-out.: Yes Procedure Operation Date: 06/19/21 11:00 <No data on this case meets the specified criteria> Operation Date: 06/19/21 17:15 <No data on this case meets the specified criteria> Surgeon Milana Corrales MD Document Examiner None Estimated Blood Loss 0 Findings See Below (No UGI bleeding seen.) Specimens None Description of Procedure EGD I attest to the content of the Intraoperative Record and any orders documented therein. Any exceptions are noted below.
--- NOTE | 2021-06-19 14:04 | GI REPORT ---
Patient Name: Natacha Grande Procedure Date: 06/19/2021 1:49 PM Date of : 1965 Admit Type: Inpatient Age: 56 Gender: Female Attending MD: Milana Corrales MD Procedure: Upper GI endoscopy Providers: Milana Corrales MD Referring MD: Yomi Solis Md Indications: Coffee-ground emesis Medicines: General Anesthesia Complications: No immediate complications. Estimated Blood Loss: Estimated blood loss: none. Procedure: Pre-Anesthesia Assessment: - Prior to the procedure, a History and Physical was performed, and patient medications, allergies and sensitivities were reviewed. The patient's tolerance of previous anesthesia was reviewed. - The risks and benefits of the procedure and the sedation options and risks were discussed with the patient. All questions were answered and informed consent was obtained. - Patient identification and proposed procedure were verified prior to the procedure by the physician and the nurse. The procedure was verified in the procedure room. - Pre-procedure physical examination revealed no contraindications to sedation. After obtaining informed consent, the endoscope was passed under direct vision. Throughout the procedure, the patient's blood pressure, pulse, and oxygen saturations were monitored continuously. The Endoscope was introduced through the mouth, and advanced to the second part of duodenum. The upper GI endoscopy was accomplished without difficulty. The patient tolerated the procedure well. Findings: Grade I varices were found in the lower third of the esophagus. The entire examined stomach was normal. The duodenal bulb and second portion of the duodenum were normal. Impression: - No evidence of UGI bleeding. - Grade I esophageal varices. - Normal stomach. - Normal duodenal bulb and second portion of the duodenum. - No specimens collected. Recommendation: - [facility] care. - Repeat upper endoscopy in 1 year for surveillance. - Recall GI if needed. Milana Corrales MD 06/19/2021 2:04:04 PM This report has been signed electronically. Note Initiated On: 06/19/2021 1:49 PM Number of Addenda: 0 I attest to the content of the Intraoperative Record and orders documented therein, exceptions below {[id number]}
--- NOTE | 2021-06-19 14:40 | Anesthesiology Progress Note ---
Date of Service June 19, 2021 Anesthesia Post Procedure Vital Signs Vital Signs: Temp Pulse Pulse Pulse Resp BP BP 06/19/21 14:35 68 22 109/55 L 06/19/21 14:25 71 20 107/56 L 06/19/21 14:15 71 18 100/72 06/19/21 14:06 97.2 F L 70 15 109/50 L 06/19/21 13:10 98.2 F 70 18 123/75 06/19/21 05:17 65 20 133/77 06/19/21 01:13 97.7 F 71 24 125/88 06/19/21 00:20 71 20 136/70 06/18/21 23:50 70 15 06/18/21 23:43 73 18 06/18/21 23:40 67 13 06/18/21 23:30 68 12 105/83 06/18/21 23:20 67 14 06/18/21 23:00 76 16 109/73 06/18/21 22:43 68 14 149/84 H 06/18/21 22:30 68 14 122/71 06/18/21 22:15 70 16 109/83 06/18/21 22:03 06/18/21 22:02 68 12 128/75 06/18/21 21:54 67 16 146/97 H 06/18/21 21:44 06/18/21 21:36 72 14 148/79 H 06/18/21 21:04 70 139/84 Pulse Ox 06/19/21 14:35 95 06/19/21 14:25 94 06/19/21 14:15 95 06/19/21 14:06 95 06/19/21 13:10 94 06/19/21 05:17 95 06/19/21 01:13 97 06/19/21 00:20 96 06/18/21 23:50 96 06/18/21 23:43 98 06/18/21 23:40 100 06/18/21 23:30 97 06/18/21 23:20 96 06/18/21 23:00 96 06/18/21 22:43 99 06/18/21 22:30 06/18/21 22:15 100 06/18/21 22:03 92 06/18/21 22:02 92 06/18/21 21:54 93 06/18/21 21:44 99 06/18/21 21:36 97 06/18/21 21:04 100 Transfer of Care Handoff Completed per policy Notes Mental Status: alert / awake / arousable and participated in evaluation Patient Amnestic to Procedure: Yes Nausea / Vomiting: adequately controlled Pain: adequately controlled Airway Patency, RR, SpO2: stable & adequate BP & HR: stable & adequate Hydration State: stable & adequate Anesthetic Complications: no major complications apparent and Pt Satisfied with anesthetic care
--- NOTE | 2021-06-19 15:39 | Hospitalist Progress Note ---
Date of Service June 19, 2021 Assessment & Plan (1) Encephalopathy: Plan: Encephalopathy Likely multifactorial: Metabolic encephalopathy, medications,? Drug Use, Concussion Fall, head trauma, concussion Right orbital fracture Retrobulbar emphysema and fat herniation -CT head:No acute intracranial abnormality. Please see dedicated maxillofacial CT for detailed findings of facial fractures. -Facial CT:Fractures of the inferior, lateral, and medial rosales of the right orbit and mildly comminuted fractures of all 3 rosales in the maxillary sinus. The optic nerve and extraocular muscles are unremarkable. There is retrobulbar emphysema and fat herniation. -Toxicology screen positive for marijuana, amphetamines Alcohol level negative Ammonia level only mildly elevated Continue neuro checks Currently oriented but drowsy Oromaxillary surgery consulted Suspected Pneumonitis CT Chest: No evidence of acute fracture. Multifocal groundglass and consolidative opacities which may represent aspiration and/or pneumonia. On Rocephin, doxycycline Procalcitonin Right hand cellulitis On Keflex, doxycycline as outpatient Hold home medications Continue Rocephin, doxycycline for now Hematemesis ? Secondary to esophageal varices S/P EGD: Grade 1 varices found in the lower third of the esophagus. Continue PPI drip Also on octreotide drip Monitor H&H and transfuse PRBCs as needed Avoid NSAIDs Appreciate GI input Compensated HCV cirrhosis No encephalopathy secondary to cirrhosis as per GI Avoid hepatotoxic agents Low-salt diet Mood disorder/personality disorder Resume home medications as able Prediabetes HbA1C: 5.2 is January 2021 Ongoing tobacco abuse Consult to quit smoking DVT Px: SCDs for now Code Status Full code Admission and Anticipated Discharge Date Admission Date: June 19, 2021 Subjective Patient is seen and examined at bedside States having right orbital pain Poor historian Patient had EGD here it today Patient has any chest pain, dyspnea, dizziness, nausea, abdominal pain Offers no other complaints Review of Systems Review of Systems: All systems reviewed & are unremarkable except as noted in Subjective Physical Exam Physical Exam: Physical Exam: Vitals signs as noted above General Appearance:Moderately built and nourished, no apparent distress Head: normocephalic, Atraumatic Eyes: normal inspection, Right periorbital ecchymosis, erythema, tender Neck: supple, Trachea midline Respiratory/Chest: Decreased breath sounds, CTA Cardiovascular: S1, S2, No murmur Abdomen/GI:Soft, Non tender, Bowel sounds present Extremities/Musculoskeletal:normal inspection, Right hand swelling, erythema Neurologic/Psych:AAOX3, grossly no focal neurological deficits Skin: normal color, warm Results & Data Results & Data ([facility]) Vital Signs (Past 12 Hours) Vital Signs Temp Pulse Pulse Resp BP Pulse Ox 06/19/21 15:10 71 19 130/72 96 06/19/21 14:55 68 20 103/53 L 94 06/19/21 14:45 36.5 C 67 16 102/54 L 94 06/19/21 14:35 68 22 109/55 L 95 06/19/21 14:25 71 20 107/56 L 94 06/19/21 14:15 71 18 100/72 95 06/19/21 14:06 36.2 C L 70 15 109/50 L 95 06/19/21 13:10 36.8 C 70 18 123/75 94 06/19/21 05:17 65 20 133/77 95 Laboratory Results Short CBC 06/18/21 06/19/21 06/19/21 Range/Units 21:15 00:48 06:03 WBC 4.78 L 5.65 (4.8-10.8) K/uL Hgb 12.7 12.1 12.8 (12.0-16.0) g/dL Hct 38.6 37.3 40.6 (37-47) % Plt Count 101 L 88 L (130-400) K/uL 06/19/21 Range/Units 11:56 WBC (4.8-10.8) K/uL Hgb 12.0 (12.0-16.0) g/dL Hct 37.4 (37-47) % Plt Count (130-400) K/uL BMP 06/18/21 06/19/21 21:15 06:03 Sodium 139 138 Potassium 3.8 4.2 Chloride 104 106 Carbon Dioxide 26 29 BUN 14 10 Creatinine 0.61 0.53 L Glucose 126 H 97 Calcium 9.7 9.5 Cardiac Enzymes 06/18/21 Range/Units 21:15 Total Creatine Kinase 99 (26-192) U/L Troponin I < 0.015 (0-0.045) ng/ml Liver Function 06/18/21 06/19/21 Range/Units 21:15 06:03 Total Bilirubin 0.5 0.5 (0.2-1) mg/dl AST 23 24 (15-37) U/L ALT 20 20 (12-78) U/L Alkaline Phosphatase 98 89 (45-117) U/L Albumin 3.5 3.2 L (3.4-5.0) gm/dl Urine 06/18/21 Range/Units 23:05 Urine Color Yellow Urine Appearance Clear (Clear) Urine pH 5.5 (4.5-7.5) Ur Specific [place] 1.021 (1.000-1.030) Urine Protein Negative (Negative) Urine Glucose (UA) Negative (Negative)
[2021-06-19] MEDS ORDERED: ALBUTEROL HFA 8 GM INHALER INH PRN (15:50)
[2021-06-19] MEDS: ALBUT/IPRATROP 3MG/0.5MG NEB 3 ML VIAL INH SCH ×2 (16:26→19:35)
--- NOTE | 2021-06-19 18:30 | Electrocardiogram Report ---
Test Reason : Blood Pressure : / mmHG Vent. Rate : 070 BPM Atrial Rate : 070 BPM P-R Int : 184 ms QRS Dur : 094 ms QT Int : 446 ms P-R-T Axes : 053 022 040 degrees QTc Int : 481 ms Poor data quality, interpretation may be adversely affected Normal sinus rhythm no longer present No previous ECGs available Confirmed by Eugenio Baldwin ([id number]) on 06/19/2021 6:30:22 PM Referred By: REFERRED SELF Confirmed By:Eugenio Baldwin
[2021-06-19 18:32] LABS: Hematocrit (blood only) 39.6 % (37-47); Hemoglobin 12.5 g/dL (12.0-16.0)
[2021-06-19] MEDS ORDERED: Nursing to Pharmacy Communication SCH (21:00)
[2021-06-19] MEDS: DOXYCYCLINE HYCLATE 100 MG in DEXTROSE 5% 100 ML IV SCH (23:35)
[2021-06-20] MEDS: cefTRIAXone SODIUM 2,000 MG in DEXTROSE 5% 50 ML IV SCH (02:11)
[2021-06-20] MEDS: ACETAMINOPHEN 325 MG TAB PO PRN ×2 (04:55→21:12)
[2021-06-20] MEDS: ALBUT/IPRATROP 3MG/0.5MG NEB 3 ML VIAL INH SCH ×4 (05:33→19:31)
[2021-06-20 07:42] LABS: Hematocrit (blood only) 37.1 % (37-47); Mean Corpuscular Hemoglobin 28.4 pg (25-34); Mean Corpuscular Hgb Conc 32.3 g/dL (32-36); Mean Corpuscular Volume 87.7 fL (80-100); RDW Coefficient of Variation 15.5 % (11.5-14.5); Red Blood Count 4.23 M/uL (4.2-5.4); White Blood Count 6.05 K/uL (4.8-10.8)
[2021-06-20] MEDS: MULTIVITAMIN TAB PO SCH (07:50)
[2021-06-20] MEDS: CIPROFLOXACIN / D5W 400 MG/200 ML BAG IV SCH ×2 (07:50→20:57)
[2021-06-20] MEDS: THIAMINE HCL 100 MG TAB PO SCH (07:50)
[2021-06-20] MEDS: FOLIC ACID 1 MG TAB PO SCH (07:50)
[2021-06-20] MEDS: OCTREOTIDE ACETATE 500 MCG in 0.9 % SODIUM CHLORIDE 100 ML IV SCH ×2 (07:57→17:54)
[2021-06-20] MEDS: PANTOprazole 40 MG in SYRINGE 0 ML IV SCH ×2 (07:57→20:57)
[2021-06-20 08:09] LABS: Mean Platelet Volume 10.7 fL (7.4-10.4); Platelet Count 90 K/uL (130-400)
[2021-06-20 08:15] LABS: Creatinine Clr Calc Pharmacy 147.8 ml/min; Est GFR (African American) 129.8 ml/min; Potassium 4.6 mmol/L (3.5-5.1)
--- NOTE | 2021-06-20 09:22 | Oral/Maxillofacial Consult ---
Date of Consultation June 20, 2021 Assessment & Plan (1) Fracture of orbital floor, blow-out, right, closed: (2) Traumatic ecchymosis of eye: History of Present Illness Reason for Consultation: right orbital eye trauma seconday to fall Attending Physician: Yomi Solis MD History of Present Illness Oral Maxillofacial Surgery Exam-Orbital Floor Fracture Recent Problem: Fell at home fell hit right eye area--blow out orbital Fx right side. superficial Laceration right upper eye brow, gross swelling right eye. Eye swollen closed. Suggest tool honing machine set up operator evaluate the eye--too swollen to determine any entrapment. Report from ED is that patient can move the eye and see from the right eye Present Complaint: Fall hitting right side of the face many other co morbidities Patient does relate to staff that she drank a beer and a half earlier this evening. States she fell off the toilet. Vital signs stable. Oxygen weaned down to 3 L/min Discussed with Dr. Berger. No acute intervention required. Would start on antibiotics, he can see in consult tomorrow morning as a precaution. Does not need urgent transfer to a trauma facility. A detailed facial exam was completed. Finding-left eye all WNL, right eye swollen. severe exophthalmos, not able to determine right ROM secondary to major swelling. Soft swelling, no hematoma. Can move eye, can see if I hold eye open Chemists evaluation pending: CT scan--independent interpretation of the CT scan There is a Fx of the right orbital floor without any entrapment, lateral there is more displacement and some fat into sinus. Difficult to determine at this time if a Surgical repair necessary until the swelling goes down IMPRESSION: Fractures of the inferior, lateral, and medial rosales of the right orbit and mildly comminuted fractures of all 3 rosales in the maxillary sinus. The optic nerve and extraocular muscles are unremarkable. There is retrobulbar emphysema and fat herniation. Facial and Orbital Soft tissue: Ecchymosis as expected from facial trauma. Right eye completely closed from the swelling The sinus wall fractures are of no significance Neck: is supple, FROM, Able to extend and flex neck w/o difficulty, no masses, no abnormalities, no airway issues Plan: I will see Natacha as an outpatient early next week to check on progress and if double vision, pain or no significant changes are present and determine if open reduction with titanium plate will be needed based on findings of eye exam and functional impairments. Natacha was very lethargic and I will review myfindings and suggestions when I see her as an out patient on Jun 23. Plan: follow up call in 5-[address] Berger I left my card with Natacha to call my office to arrange follow up. Suggested treatment --no nose blowing and follow up with Dr Berger Suggest ophthalmology consult to r/o globe injury Allergies Allergy/AdvReac Type Severity Reaction Status Date / Time Sulfa (Sulfonamide Allergy Intermediate Hives Verified 06/19/21 00:32 Antibiotics) amitriptyline [From Elavil] AdvReac Intermediate INCREASES Verified 06/19/21 00:32 RESTLESS LEGS prednisone AdvReac Intermediate Vomiting Verified 06/19/21 00:32 quetiapine [From Seroquel] AdvReac Intermediate INCREASES Verified 06/19/21 00:32 RESTLESS LEGS tramadol AdvReac Intermediate INCREASES Verified 06/19/21 00:32 RESTLESS LEGS trazodone AdvReac Intermediate INCREASES Verified 06/19/21 00:32 RESTLESS LEGS Home Medications Medication Instructions Recorded Confirmed Type acetaminophen 500 mg tablet 1,000 mg PO Q6H PRN 02/22/21 06/19/21 History (Tylenol Extra Strength) albuterol sulfate 90 mcg/actuation 2 puff INHALATION Q4H PRN 02/22/21 06/19/21 History aerosol inhaler calcium carbonate 600 mg (1,500 1 tab PO DAILY 02/22/21 06/19/21 History mg)-vitamin D3 200 unit tablet (Calcium 600 + D(3)) cholecalciferol (vitamin D3) 125 125 mcg PO QAM 02/22/21 06/19/21 History mcg (5,000 unit) tablet (Vitamin D3) citalopram 20 mg tablet (Celexa) 20 mg PO QAM 02/22/21 06/19/21 History cyanocobalamin (vitamin B-12) 2,500 mcg SUBLINGUAL QAM 02/22/21 06/19/21 History 2,500 mcg sublingual tablet (Vitamin B-12) cyclobenzaprine 10 mg tablet 10 mg PO TID PRN 02/22/21 06/19/21 History glucosamine 750 ha-[id number]-[id number] 1 tab PO BID 02/22/21 06/19/21 History no1 644 mg-C 30 mg-aundrea 1 mg tablet (Osteo Bi-Flex Triple Strength) lamotrigine 150 mg tablet 150 mg PO BID 02/22/21 06/19/21 History (Lamictal) melatonin 10 mg tablet 60 mg PO HS PRN 02/22/21 06/19/21 History pantoprazole 40 mg tablet,delayed 40 mg PO QAM 02/22/21 06/19/21 History release sulindac 200 mg tablet 200 mg PO BIDM 02/22/21 06/19/21 History vitamin E 400 unit capsule 400 unit PO QAM 02/22/21 06/19/21 History Probio Slim 2 cap PO BID 06/09/21 06/19/21 History cephalexin 500 mg capsule 500 mg PO Q6H 10 Days #40 cap 06/09/21 06/19/21 Rx ferrous sulfate 325 mg (65 mg 325 mg PO QAM 06/09/21 06/19/21 History iron) tablet hydrocodone 7.5 mg-acetaminophen 1 tab PO Q6H PRN 06/09/21 06/19/21 History 325 mg tablet ipratropium 0.5 mg-albuterol 3 mg 3 ml INHALATION .QID UD 06/09/21 06/19/21 History (2.5 mg base)/3 mL nebulization soln ondansetron 4 mg disintegrating 4 mg PO Q4H PRN #6 tab 06/09/21 06/19/21 Rx tablet potassium gluconate 550 mg (90 mg) 550 mg PO QAM 06/09/21 06/19/21 History tablet pramipexole 4.5 mg tablet,extended 4.5 mg PO DAILY 06/09/21 06/19/21 History release 24 hr (Mirapex ER) pregabalin 100 mg capsule (Lyrica) 100 mg PO TID 06/09/21 06/19/21 History celecoxib 100 mg capsule 100 mg PO BID 06/19/21 06/19/21 History doxycycline hyclate 100 mg tablet 100 mg PO BID 06/19/21 06/19/21 History risperidone 0.25 mg tablet 0.25 mg PO BID 06/19/21 06/19/21 History Patient History Medical History Asthma Degenerative disc disease No pertinent family history Surgical History No pertinent past surgical history Social History Smoking Status: Current every day smoker Tobacco Type: Cigarettes Hx Alcohol Use: Yes Alcohol type: beer Preferred Language: Yakut Feels Safe at Home: Yes Assistive Devices: Oxygen - Continuous and Walker Results & Data ([facility]) Vital Signs (Past 12 Hours) Vital Signs Temp Pulse Pulse Pulse Resp BP Pulse Ox 06/20/21 07:25 36.6 C 68 16 117/71 95 06/20/21 05:33 75 18 95 06/20/21 03:12 36.7 C 75 18 142/69 H 97 06/19/21 22:32 36.6 C 71 18 135/73 96 06/19/21 22:20 68 PG Care Time/CCT Total # of Minutes Spent Total Time Spent with Patient: Total time spent is greater than 50% in coordination of care (as documented) at patient's floor/unit and/or counseling patient: Coding Level of Care Code 64728 Initial Inpt Care Lvl 3 Diagnoses Fracture of orbital floor, blow-out, right, closed S02.31XA Traumatic ecchymosis of eye S05.10XA
[2021-06-20] MEDS: DOXYCYCLINE HYCLATE 100 MG in DEXTROSE 5% 100 ML IV SCH ×2 (12:03→23:05)
[2021-06-20] MEDS: NSS + 20MEQ KCL 20 MEQ/1,000 ML BAG IV SCH (16:11)
[2021-06-20] MEDS: oxyCODONE/ACETAMINOPHEN 5mg/325mg TAB PO PRN (17:54)
--- NOTE | 2021-06-20 18:40 | Consultation ---
Date of Consultation June 20, 2021 Assessment & Plan (1) Traumatic ecchymosis of eye: The globe appears primarily uninjured. I do not have any objective explanation for the lateral field cut that the patient reports. It may be an obstructive effect of her upper lid swelling. A traumatic optic neuropathy is another possibility. However, the bedside exam is severely limited. If ocular symptoms persist I would recommend an outpatient evaluation on discharge to better evaluate her complaint. (2) Fracture of orbital floor, blow-out, right, closed: Exam suggests motility dysfunction of the right eye particularly in down gaze. This may resolve as the swelling subsides. The CT scan did not suggest muscle entrapment. The patient is to follow up with Dr. Berger after discharge to determine if surgical intervention is warranted. Follow up with me prn. The exam at the bedside History of Present Illness Reason for Consultation: Patient fell at home striking the right side of her face Attending Physician: Yomi Solis MD History of Present Illness Patient fell at home yesterday striking the right side of her face and causing blunt trauma to the right orbit and globe. CT report shows several orbital fractures. Patient now reports some double vision. She also notes a loss of the temporal visual field of her right eye. Her past ocular history is significant for glasses but she does not have them with her and feels that they may have broken during her fall. Allergies Allergy/AdvReac Type Severity Reaction Status Date / Time Sulfa (Sulfonamide Allergy Intermediate Hives Verified 06/19/21 00:32 Antibiotics) amitriptyline [From Elavil] AdvReac Intermediate INCREASES Verified 06/19/21 00:32 RESTLESS LEGS prednisone AdvReac Intermediate Vomiting Verified 06/19/21 00:32 quetiapine [From Seroquel] AdvReac Intermediate INCREASES Verified 06/19/21 00:32 RESTLESS LEGS tramadol AdvReac Intermediate INCREASES Verified 06/19/21 00:32 RESTLESS LEGS trazodone AdvReac Intermediate INCREASES Verified 06/19/21 00:32 RESTLESS LEGS Home Medications Medication Instructions Recorded Confirmed Type acetaminophen 500 mg tablet 1,000 mg PO Q6H PRN 02/22/21 06/19/21 History (Tylenol Extra Strength) albuterol sulfate 90 mcg/actuation 2 puff INHALATION Q4H PRN 02/22/21 06/19/21 History aerosol inhaler calcium carbonate 600 mg (1,500 1 tab PO DAILY 02/22/21 06/19/21 History mg)-vitamin D3 200 unit tablet (Calcium 600 + D(3)) cholecalciferol (vitamin D3) 125 125 mcg PO QAM 02/22/21 06/19/21 History mcg (5,000 unit) tablet (Vitamin D3) citalopram 20 mg tablet (Celexa) 20 mg PO QAM 02/22/21 06/19/21 History cyanocobalamin (vitamin B-12) 2,500 mcg SUBLINGUAL QAM 02/22/21 06/19/21 History 2,500 mcg sublingual tablet (Vitamin B-12) cyclobenzaprine 10 mg tablet 10 mg PO TID PRN 02/22/21 06/19/21 History glucosamine 750 [id number]-[id number]-[id number] 1 tab PO BID 02/22/21 06/19/21 History no1 644 mg-C 30 mg-aundrea 1 mg tablet (Osteo Bi-Flex Triple Strength) lamotrigine 150 mg tablet 150 mg PO BID 02/22/21 06/19/21 History (Lamictal) melatonin 10 mg tablet 60 mg PO HS PRN 02/22/21 06/19/21 History pantoprazole 40 mg tablet,delayed 40 mg PO QAM 02/22/21 06/19/21 History release sulindac 200 mg tablet 200 mg PO BIDM 02/22/21 06/19/21 History vitamin E 400 unit capsule 400 unit PO QAM 02/22/21 06/19/21 History Probio Slim 2 cap PO BID 06/09/21 06/19/21 History cephalexin 500 mg capsule 500 mg PO Q6H 10 Days #40 cap 06/09/21 06/19/21 Rx ferrous sulfate 325 mg (65 mg 325 mg PO QAM 06/09/21 06/19/21 History iron) tablet hydrocodone 7.5 mg-acetaminophen 1 tab PO Q6H PRN 06/09/21 06/19/21 History 325 mg tablet ipratropium 0.5 mg-albuterol 3 mg 3 ml INHALATION .QID UD 06/09/21 06/19/21 History (2.5 mg base)/3 mL nebulization soln ondansetron 4 mg disintegrating 4 mg PO Q4H PRN #6 tab 06/09/21 06/19/21 Rx tablet potassium gluconate 550 mg (90 mg) 550 mg PO QAM 06/09/21 06/19/21 History tablet pramipexole 4.5 mg tablet,extended 4.5 mg PO DAILY 06/09/21 06/19/21 History release 24 hr (Mirapex ER) pregabalin 100 mg capsule (Lyrica) 100 mg PO TID 06/09/21 06/19/21 History celecoxib 100 mg capsule 100 mg PO BID 06/19/21 06/19/21 History doxycycline hyclate 100 mg tablet 100 mg PO BID 06/19/21 06/19/21 History risperidone 0.25 mg tablet 0.25 mg PO BID 06/19/21 06/19/21 History Patient History Medical History Asthma Degenerative disc disease No pertinent family history Surgical History No pertinent past surgical history Social History Smoking Status: Current every day smoker Tobacco Type: Cigarettes Hx Alcohol Use: Yes Alcohol type: beer Preferred Language: French Feels Safe at Home: Yes Assistive Devices: Walker Physical Exam Eyes: Visual acuity on a near card without correction was 20/200 on the right and 20/400 on the left. There is diffuse ecchymosis and edema around the right eye. Motility examination is notable for reduction of infraduction of the right eye resulting in diplopia on down gaze. Supraduction seemed mildly diminished but was difficult to evaluate due to prominent upper lid swelling. Lateral gazes seemed full. Pen light examination shows injection of the conjunctiva. The anterior chamber appeared formed and clear without hyphema. The iris was round and reactive. I did not appreciate an afferent pupillary defect but subjectively the patient reported that the stimulus light was brighter in the left eye than the right. Dilated funduscopic examination on the right is unremarkable. Optic nerve had good color. Macula, retinal vessels, and retinal periphery were unremarkable. Results & Data ([facility]) Vital Signs (Past 12 Hours) Vital Signs Temp Pulse Pulse Pulse Resp BP Pulse Ox 06/20/21 17:00 71 06/20/21 15:46 36.6 C 72 16 95/53 L 92 06/20/21 15:01 90 16 93 06/20/21 11:16 36.5 C 72 16 119/68 97 06/20/21 10:15 65 18 99 06/20/21 08:00 67 06/20/21 07:25 36.6 C 68 16 117/[address] scan shows inferior, medial, and lateral wall fractures of the right orbit. Globe and optic nerve are unremarkable.
--- NOTE | 2021-06-20 21:10 | Hospitalist Progress Note ---
Date of Service June 20, 2021 Assessment & Plan (1) Encephalopathy: Plan: Encephalopathy Likely multifactorial: Metabolic encephalopathy, medications,? Drug Use, Concussion Fall, head trauma, concussion Right orbital fracture Retrobulbar emphysema and fat herniation Double/blurry vision on right -CT head:No acute intracranial abnormality. Please see dedicated maxillofacial CT for detailed findings of facial fractures. -Facial CT:Fractures of the inferior, lateral, and medial rosales of the right orbit and mildly comminuted fractures of all 3 rosales in the maxillary sinus. The optic nerve and extraocular muscles are unremarkable. There is retrobulbar emphysema and fat herniation. -Toxicology screen positive for marijuana, amphetamines Alcohol level negative Ammonia level only mildly elevated Continue neuro checks Appreciate Oromaxillary surgery and ophthalmology input Needs follow-up with oromaxillary surgery, ophthalmology upon discharge Globe appears uninjured as per ophthalmology. No surgical treatment currently advised by oromaxillary surgery. Will get MRI brain to rule out CVA Needs to avoid nose blowing as per surgery Suspected Pneumonitis CT Chest: No evidence of acute fracture. Multifocal groundglass and consolidative opacities which may represent aspiration and/or pneumonia. On Rocephin, doxycycline Procalcitonin normal Right hand cellulitis On Keflex, doxycycline as outpatient Hold home medications Continue Rocephin, doxycycline for now Hematemesis ? Secondary to esophageal varices S/P EGD: Grade 1 varices found in the lower third of the esophagus. Continue PPI Received octreotide Monitor H&H and transfuse PRBCs as needed Avoid NSAIDs Appreciate GI input Hb stable Compensated HCV cirrhosis No encephalopathy secondary to cirrhosis as per GI Avoid hepatotoxic agents Low-salt diet Mood disorder/personality disorder Resume home medications as able Prediabetes HbA1C: 5.2 is January 2021 Ongoing tobacco abuse Consult to quit smoking DVT Px: SCDs for now Code Status Full code Admission and Anticipated Discharge Date Admission Date: June 19, 2021 Subjective Patient is seen and examined at bedside States having orbital pain, double and blurry vision on right side Had PT during my encounter Offers no other complaints Denies chest pain, dyspnea, dizziness, nausea, abdominal pain Review of Systems Review of Systems: All systems reviewed & are unremarkable except as noted in Subjective Physical Exam Physical Exam: Physical Exam: Vitals signs as noted above General Appearance:Moderately built and nourished, no apparent distress Head: normocephalic, Atraumatic Eyes: normal inspection, Right periorbital ecchymosis, erythema, tender Neck: supple, Trachea midline Respiratory/Chest: Decreased breath sounds, CTA Cardiovascular: S1, S2, No murmur Abdomen/GI:Soft, Non tender, Bowel sounds present Extremities/Musculoskeletal:normal inspection, Right hand swelling, erythema Neurologic/Psych:AAOX3, grossly no focal neurological deficits Skin: normal color, warm Results & Data Results & Data ([facility]) Vital Signs (Past 12 Hours) Vital Signs Temp Pulse Pulse Pulse Resp BP Pulse Ox 06/20/21 19:33 72 15 96 06/20/21 17:00 71 06/20/21 15:46 36.6 C 72 16 95/53 L 92 06/20/21 15:01 90 16 93 06/20/21 11:16 36.5 C 72 16 119/68 97 06/20/21 10:15 65 18 99 Laboratory Results Short CBC 06/20/21 Range/Units 07:24 WBC 6.05 (4.8-10.8) K/uL Hgb 12.0 (12.0-16.0) g/dL Hct 37.1 (37-47) % Plt Count 90 L (130-400) K/uL BMP 06/20/21 07:24 Sodium 137 Potassium 4.6 Chloride 103 Carbon Dioxide 27 BUN 8 Creatinine 0.47 L Glucose 140 H Calcium 9.0
[2021-06-21] MEDS: oxyCODONE/ACETAMINOPHEN 5mg/325mg TAB PO PRN ×2 (00:53→20:38)
[2021-06-21] MEDS: cefTRIAXone SODIUM 2,000 MG in DEXTROSE 5% 50 ML IV SCH (02:05)
[2021-06-21] MEDS: OCTREOTIDE ACETATE 500 MCG in 0.9 % SODIUM CHLORIDE 100 ML IV SCH ×2 (04:15→05:06)
[2021-06-21] MEDS ORDERED: Nursing to Pharmacy Communication SCH (04:30)
[2021-06-21] MEDS: NSS + 20MEQ KCL 20 MEQ/1,000 ML BAG IV SCH (05:01)
[2021-06-21] MEDS: ALBUT/IPRATROP 3MG/0.5MG NEB 3 ML VIAL INH SCH ×4 (07:03→20:17)
[2021-06-21] MEDS: MULTIVITAMIN TAB PO SCH (08:52)
[2021-06-21] MEDS: FOLIC ACID 1 MG TAB PO SCH (08:52)
[2021-06-21] MEDS: THIAMINE HCL 100 MG TAB PO SCH (08:52)
[2021-06-21] MEDS: CIPROFLOXACIN / D5W 400 MG/200 ML BAG IV SCH ×2 (08:52→20:34)
[2021-06-21] MEDS: PANTOprazole 40 MG in SYRINGE 0 ML IV SCH ×2 (08:53→20:37)
[2021-06-21 09:05] LABS: Hematocrit (blood only) 35.4 % (37-47); Hemoglobin 11.2 g/dL (12.0-16.0); Mean Corpuscular Hemoglobin 28.1 pg (25-34); Mean Corpuscular Hgb Conc 31.6 g/dL (32-36); Mean Corpuscular Volume 88.9 fL (80-100); RDW Coefficient of Variation 15.8 % (11.5-14.5); RDW Standard Deviation 50.9 fL (36.4-46.3); Red Blood Count 3.98 M/uL (4.2-5.4); White Blood Count 3.58 K/uL (4.8-10.8)
[2021-06-21 09:11] LABS: Mean Platelet Volume 11.1 fL (7.4-10.4); Platelet Count 87 K/uL (130-400)
[2021-06-21 09:50] LABS: BUN Creatinine Ratio 18.4 (10-20); Calcium 8.7 mg/dl (8.5-10.1); Creatinine Clr Calc Pharmacy 128.2 ml/min; Est GFR (African American) 124.8 ml/min; Est GFR (Non-African American) 107.6 ml/min; Potassium 3.8 mmol/L (3.5-5.1)
[2021-06-21] MEDS ORDERED: GADOBUTROL 30ML VIAL IV ONE (10:37)
[2021-06-21] MEDS: DOXYCYCLINE HYCLATE 100 MG in DEXTROSE 5% 100 ML IV SCH ×2 (11:00→23:10)
--- NOTE | 2021-06-21 11:24 | Magnetic Resonance Report ---
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 There is no restricted diffusio n to suggest acute or subacute infarct. No pathologic intracranial blooming artifact. No acute intrac ranial hemorrhage, midline shift, abnormal extra-axial collection, hydrocephalus or intracranial mass . Mild scattered T2/FLAIR hyperintense subcentimeter foci are noted within the subcortical white sandro er suggestive of probable chronic microvascular ischemic disease. There is no abnormal intra-axial or extra-axial enhancement. Hemorrhage and debris within the right maxillary sinus. Acute right-sided facial bone fractures are b maine seen on comparison CT maxillofacial study from 06/18/2021. Right preseptal edema with right zack ek subcutaneous edema redemonstrated. Sigmoidal bowing and spurring the nasal septum. Cerebral venous sinuses and major arterial flow voids appear patent. Mastoid air cells are clear. Mild mucosal thick ening of the ethmoid air cells. IMPRESSION: 1. No acute intracranial abnormality or abnormal enhancement. 2. Acute right-sided facial bone fractures are better characterized on the CT maxillofacial study fro m 06/18/2021. There is persistent right facial soft tissue swelling with hemorrhage and mucosal secre tions within the right maxillary sinus. ACT 112: Negative or not required by law. The above report was generated using voice recognition software. It may contain grammatical, syntax o r spelling errors. Electronically signed by: Rom Gold M.D. 06/21/2021 11:22 AM
[2021-06-21] MEDS ORDERED: ARTIFICIAL TEARS OP PRN (14:33)
[2021-06-21] MEDS: CITALOPRAM 20 MG TAB PO SCH (16:57)
--- NOTE | 2021-06-21 18:58 | Hospitalist Progress Note ---
Date of Service June 21, 2021 Assessment & Plan (1) Encephalopathy: Plan: Encephalopathy Likely multifactorial: Metabolic encephalopathy, medications,? Drug Use, Concussion Fall, head trauma, concussion Right orbital fracture Retrobulbar emphysema and fat herniation Double/blurry vision on right -CT head:No acute intracranial abnormality. Please see dedicated maxillofacial CT for detailed findings of facial fractures. -Facial CT:Fractures of the inferior, lateral, and medial rosales of the right orbit and mildly comminuted fractures of all 3 rosales in the maxillary sinus. The optic nerve and extraocular muscles are unremarkable. There is retrobulbar emphysema and fat herniation. -Toxicology screen positive for marijuana, amphetamines -MRI Brain:No acute intracranial abnormality or abnormal enhancement. Acute right-sided facial bone fractures are better characterized on the CT maxillofacial study from 06/18/2021. There is persistent right facial soft tissue swelling with hemorrhage and mucosal secretions within the right maxillary sinus. -Alcohol level negative Ammonia level only mildly elevated Continue neuro checks Appreciate Oromaxillary surgery and ophthalmology input Needs follow-up with oromaxillary surgery, ophthalmology upon discharge Globe appears uninjured as per ophthalmology. No surgical treatment currently advised by oromaxillary surgery. Will get MRI brain to rule out CVA Needs to avoid nose blowing as per surgery Monitor mental status after resuming home antipsychotic medications Suspected Pneumonitis CT Chest: No evidence of acute fracture. Multifocal groundglass and consolidative opacities which may represent aspiration and/or pneumonia. On Rocephin, doxycycline Procalcitonin normal Right hand cellulitis On Keflex, doxycycline as outpatient Hold home medications Continue Rocephin, doxycycline for now Hematemesis ? Secondary to esophageal varices S/P EGD: Grade 1 varices found in the lower third of the esophagus. Continue PPI Received octreotide Monitor H&H and transfuse PRBCs as needed Avoid NSAIDs Appreciate GI input No recurrence of hemoptysis Hemoglobin 12.2 today Compensated HCV cirrhosis No encephalopathy secondary to cirrhosis as per GI Avoid hepatotoxic agents Low-salt diet Mood disorder/personality disorder Resume home medications Monitor Consider psychiatry evaluation if needed Prediabetes HbA1C: 5.2 is January 2021 Ongoing tobacco abuse Consult to quit smoking DVT Px: SCDs for now Code Status Full code Admission and Anticipated Discharge Date Admission Date: June 19, 2021 Subjective Patient is seen and examined at bedside States having mildly improved double, blurry vision Requests home psychiatric medications to be restarted Also reports right eye dryness Denies chest pain, dyspnea, dizziness, nausea, abdominal pain Review of Systems Review of Systems: All systems reviewed & are unremarkable except as noted in Subjective Physical Exam Physical Exam: Physical Exam: Vitals signs as noted above General Appearance:Moderately built and nourished, no apparent distress Head: normocephalic, Atraumatic Eyes: normal inspection, Right periorbital ecchymosis, erythema, tender Neck: supple, Trachea midline Respiratory/Chest: Decreased breath sounds, CTA Cardiovascular: S1, S2, No murmur Abdomen/GI:Soft, Non tender, Bowel sounds present Extremities/Musculoskeletal:normal inspection, Right hand swelling, erythema Neurologic/Psych:AAOX3, grossly no focal neurological deficits Skin: normal color, warm Results & Data Results & Data ([facility]) Vital Signs (Past 12 Hours) Vital Signs Temp Pulse Pulse Pulse Resp BP Pulse Ox 06/21/21 15:48 36.3 C L 57 L 16 111/59 L 96 06/21/21 15:14 67 16 92 06/21/21 11:02 63 16 93 06/21/21 07:44 65 06/21/21 07:06 36.5 C 65 18 155/73 H 93 06/21/21 07:03 64 16 94 Laboratory Results Short CBC 06/21/21 Range/Units 08:41 WBC 3.58 L (4.8-10.8) K/uL Hgb 11.2 L (12.0-16.0) g/dL Hct 35.4 L (37-47) % Plt Count 87 L (130-400) K/uL BMP 06/21/21 08:41 Sodium 139 Potassium 3.8 D Chloride 106 Carbon Dioxide 27 BUN 10 Creatinine 0.53 L Glucose 131 H Calcium 8.7
[2021-06-21] MEDS: lamoTRIgine 25 MG TAB PO SCH (20:35)
[2021-06-21] MEDS: lamoTRIgine 100 MG TAB PO SCH (20:36)
[2021-06-21] MEDS: risperiDONE 0.5 MG TABLET PO SCH (20:36)
[2021-06-22] MEDS: cefTRIAXone SODIUM 2,000 MG in DEXTROSE 5% 50 ML IV SCH (03:32)
[2021-06-22] MEDS: ALBUT/IPRATROP 3MG/0.5MG NEB 3 ML VIAL INH SCH ×4 (07:24→19:57)
[2021-06-22] MEDS: MULTIVITAMIN TAB PO SCH (08:08)
[2021-06-22] MEDS: lamoTRIgine 25 MG TAB PO SCH ×2 (08:08→20:32)
[2021-06-22] MEDS: lamoTRIgine 100 MG TAB PO SCH ×2 (08:08→20:33)
[2021-06-22] MEDS: CIPROFLOXACIN / D5W 400 MG/200 ML BAG IV SCH ×2 (08:09→20:32)
[2021-06-22] MEDS: risperiDONE 0.5 MG TABLET PO SCH ×2 (08:09→20:33)
[2021-06-22] MEDS: THIAMINE HCL 100 MG TAB PO SCH (08:09)
[2021-06-22] MEDS: FOLIC ACID 1 MG TAB PO SCH (08:09)
[2021-06-22] MEDS: PANTOprazole 40 MG in SYRINGE 0 ML IV SCH ×2 (08:09→20:32)
[2021-06-22] MEDS: CITALOPRAM 20 MG TAB PO SCH (08:09)
[2021-06-22 09:38] LABS: Hematocrit (blood only) 37.2 % (37-47)
[2021-06-22] MEDS: DOXYCYCLINE HYCLATE 100 MG in DEXTROSE 5% 100 ML IV SCH ×2 (11:45→22:56)
[2021-06-22] MEDS: oxyCODONE/ACETAMINOPHEN 5mg/325mg TAB PO PRN (13:47)
--- NOTE | 2021-06-22 20:12 | Hospitalist Progress Note ---
Date of Service June 22, 2021 Assessment & Plan (1) Encephalopathy: Plan: Encephalopathy Likely multifactorial: Metabolic encephalopathy, medications,? Drug Use, Concussion Fall, head trauma, concussion Right orbital fracture Retrobulbar emphysema and fat herniation Double/blurry vision on right -CT head:No acute intracranial abnormality. Please see dedicated maxillofacial CT for detailed findings of facial fractures. -Facial CT:Fractures of the inferior, lateral, and medial rosales of the right orbit and mildly comminuted fractures of all 3 rosales in the maxillary sinus. The optic nerve and extraocular muscles are unremarkable. There is retrobulbar emphysema and fat herniation. -Toxicology screen positive for marijuana, amphetamines -MRI Brain:No acute intracranial abnormality or abnormal enhancement. Acute right-sided facial bone fractures are better characterized on the CT maxillofacial study from 06/18/2021. There is persistent right facial soft tissue swelling with hemorrhage and mucosal secretions within the right maxillary sinus. -Alcohol level negative Ammonia level only mildly elevated Continue neuro checks Appreciate Oromaxillary surgery and ophthalmology input Needs follow-up with oromaxillary surgery, ophthalmology upon discharge Globe appears uninjured as per ophthalmology. No surgical treatment currently advised by oromaxillary surgery. Needs to avoid nose blowing as per surgery Mental status seem to be back to baseline Suspected Pneumonitis CT Chest: No evidence of acute fracture. Multifocal groundglass and consolidative opacities which may represent aspiration and/or pneumonia. On Rocephin, doxycycline Procalcitonin normal Right hand cellulitis On Keflex, doxycycline as outpatient Hold home medications Continue Rocephin, doxycycline for now Hematemesis ? Secondary to esophageal varices S/P EGD: Grade 1 varices found in the lower third of the esophagus. Continue PPI Received octreotide Monitor H&H and transfuse PRBCs as needed Avoid NSAIDs Appreciate GI input No recurrence of hemoptysis Hemoglobin 12.0 today Compensated HCV cirrhosis No encephalopathy secondary to cirrhosis as per GI Avoid hepatotoxic agents Low-salt diet Mood disorder/personality disorder Resume home medications Monitor Consider psychiatry evaluation if needed Prediabetes HbA1C: 5.2 is January 2021 Ongoing tobacco abuse Consult to quit smoking DVT Px: SCDs for now Code Status Full code Admission and Anticipated Discharge Date Admission Date: June 19, 2021 Subjective Patient is seen and examined at bedside States feeling much better today Double, blurry vision on the right eye continues to improve Right orbital pain, right upper extremity hand pain continues to improve as well Denies chest pain, dyspnea, dizziness, nausea, abdominal pain Offers no other complaints Review of Systems Review of Systems: All systems reviewed & are unremarkable except as noted in Subjective Physical Exam Physical Exam: Physical Exam: Vitals signs as noted above General Appearance:Moderately built and nourished, no apparent distress Head: normocephalic, Atraumatic Eyes: normal inspection, Right periorbital ecchymosis, erythema, tender Neck: supple, Trachea midline Respiratory/Chest: Decreased breath sounds, CTA Cardiovascular: S1, S2, No murmur Abdomen/GI:Soft, Non tender, Bowel sounds present Extremities/Musculoskeletal:normal inspection, Right hand swelling, erythema Neurologic/Psych:AAOX3, grossly no focal neurological deficits Skin: normal color, warm Results & Data Results & Data ([facility]) Vital Signs (Past 12 Hours) Vital Signs Temp Pulse Pulse Resp BP BP Pulse Ox 06/22/21 19:57 60 18 93 06/22/21 19:55 57 L 109/60 06/22/21 19:15 36.6 C 55 L 18 86/39 L 94 06/22/21 17:00 56 L 06/22/21 15:54 36.4 C L 54 L 20 119/76 96 06/22/21 11:02 54 L 18 93 Laboratory Results Short CBC 06/22/21 Range/Units 09:12 Hgb 12.0 (12.0-16.0) g/dL Hct 37.2 (37-47) %
[2021-06-23] MEDS: cefTRIAXone SODIUM 2,000 MG in DEXTROSE 5% 50 ML IV SCH (01:26)
[2021-06-23] MEDS: ALBUT/IPRATROP 3MG/0.5MG NEB 3 ML VIAL INH SCH ×4 (07:13→19:23)
[2021-06-23 07:37] LABS: Amphetamine Urine, Confirm 6050 ng/mL (<250); MDA negative; MDEA negative; MDMA (Ecstasy) Urine, Confirm negative; Marijuana Quant, GCMS Urine 78 ng/mL (<5); Methamphetamine, Ur Confirm >15000 ng/mL (<250)
[2021-06-23 07:54] LABS: Hematocrit (blood only) 40.1 % (37-47); Mean Corpuscular Hemoglobin 28.7 pg (25-34); Mean Corpuscular Hgb Conc 32.4 g/dL (32-36); Mean Corpuscular Volume 88.5 fL (80-100); RDW Coefficient of Variation 16.1 % (11.5-14.5); RDW Standard Deviation 51.4 fL (36.4-46.3); Red Blood Count 4.53 M/uL (4.2-5.4); White Blood Count 4.01 K/uL (4.8-10.8)
[2021-06-23 08:15] LABS: Mean Platelet Volume 10.9 fL (7.4-10.4); Platelet Count 93 K/uL (130-400)
[2021-06-23 08:16] LABS: Platelet Estimate Decreased (Normal)
[2021-06-23 08:31] LABS: BUN Creatinine Ratio 23.8 (10-20); Creatinine Clr Calc Pharmacy 126.2 ml/min; Est GFR (African American) 123.2 ml/min; Est GFR (Non-African American) 106.3 ml/min; Potassium 4.1 mmol/L (3.5-5.1)
--- NOTE | 2021-06-23 08:39 | Oral/Maxillofacial Progress Nt ---
Date of Service June 23, 2021 I reviewed the recent chart notes and Ophthalmic exam. Natacha will need to be evaluated by me once she is discharged. Do you have any idea as to when she will be discharged? If the plan is to keep her as an inpatient for a while longer --[facility] to do another Bedside evaluation. If you can update me on your plans that would be great. (1) Traumatic ecchymosis of eye: The globe appears primarily uninjured. I do not have any objective explanation for the lateral field cut that the patient reports. It may be an obstructive effect of her upper lid swelling. A traumatic optic neuropathy is another possibility. However, the bedside exam is severely limited. If ocular symptoms persist I would recommend an outpatient evaluation on discharge to better evaluate her complaint. (2) Fracture of orbital floor, blow-out, right, closed: Exam suggests motility dysfunction of the right eye particularly in down gaze. This may resolve as the swelling subsides. The CT scan did not suggest muscle entrapment. The patient is to follow up with Dr. Berger after discharge to determine if surgical intervention is warranted. Follow up with me prn. The exam at the bedside Assessment & Plan Admission and Anticipated Discharge Date Admission Date: June 19, 2021 Results & Data ([facility]) Vital Signs (Past 12 Hours) Vital Signs Temp Pulse Pulse Resp BP BP Pulse Ox 06/23/21 07:34 36.7 C 70 18 103/64 96 06/23/21 07:13 67 16 91 06/23/21 03:38 36.8 C 66 18 107/58 L 90 06/23/21 01:00 06/23/21 00:25 62 06/22/21 23:10 36.5 C 60 18 108/55 L 93 Pulse Ox 06/23/21 07:34 06/23/21 07:13 06/23/21 03:38 06/23/21 01:00 94 06/23/21 00:25 06/22/21 23:10 PG Care Time/CCT Total # of Minutes Spent Total Time Spent with Patient: Total time spent is greater than 50% in coordination of care (as documented) at patient's floor/unit and/or counseling patient: Coding Level of Care Code None
[2021-06-23] MEDS: CIPROFLOXACIN / D5W 400 MG/200 ML BAG IV SCH ×2 (09:14→20:05)
[2021-06-23] MEDS: MULTIVITAMIN TAB PO SCH (09:17)
[2021-06-23] MEDS: FOLIC ACID 1 MG TAB PO SCH (09:17)
[2021-06-23] MEDS: THIAMINE HCL 100 MG TAB PO SCH (09:17)
[2021-06-23] MEDS: lamoTRIgine 100 MG TAB PO SCH ×2 (09:17→20:06)
[2021-06-23] MEDS: PANTOprazole 40 MG in SYRINGE 0 ML IV SCH ×2 (09:17→20:07)
[2021-06-23] MEDS: lamoTRIgine 25 MG TAB PO SCH ×2 (09:17→20:06)
[2021-06-23] MEDS: CITALOPRAM 20 MG TAB PO SCH (09:17)
[2021-06-23] MEDS: risperiDONE 0.5 MG TABLET PO SCH ×2 (09:18→20:07)
[2021-06-23] MEDS: oxyCODONE/ACETAMINOPHEN 5mg/325mg TAB PO PRN ×2 (12:17→20:05)
[2021-06-23] MEDS: DOXYCYCLINE HYCLATE 100 MG in DEXTROSE 5% 100 ML IV SCH ×2 (12:17→22:27)
[2021-06-23] MEDS: ACETAMINOPHEN 325 MG TAB PO PRN (14:10)
[2021-06-23] MEDS ORDERED: POLYETHYLENE (MIRALAX) 17 GM PACK PO PRN (16:33)
--- NOTE | 2021-06-23 17:19 | Hospitalist Progress Note ---
Date of Service June 23, 2021 Assessment & Plan (1) Encephalopathy: Plan: Encephalopathy Likely multifactorial: Metabolic encephalopathy, medications,? Drug Use, Concussion Fall, head trauma, concussion Right orbital fracture Retrobulbar emphysema and fat herniation Double/blurry vision on right -CT head:No acute intracranial abnormality. Please see dedicated maxillofacial CT for detailed findings of facial fractures. -Facial CT:Fractures of the inferior, lateral, and medial rosales of the right orbit and mildly comminuted fractures of all 3 rosales in the maxillary sinus. The optic nerve and extraocular muscles are unremarkable. There is retrobulbar emphysema and fat herniation. -Toxicology screen positive for marijuana, amphetamines -MRI Brain:No acute intracranial abnormality or abnormal enhancement. Acute right-sided facial bone fractures are better characterized on the CT maxillofacial study from 06/18/2021. There is persistent right facial soft tissue swelling with hemorrhage and mucosal secretions within the right maxillary sinus. -Alcohol level negative Ammonia level only mildly elevated Continue neuro checks Appreciate Oromaxillary surgery and ophthalmology input Needs follow-up with oromaxillary surgery, ophthalmology upon discharge Globe appears uninjured as per ophthalmology. No surgical treatment currently advised by oromaxillary surgery. Needs to avoid nose blowing as per surgery Mental status back to baseline Pain control Suspected Pneumonitis CT Chest: No evidence of acute fracture. Multifocal groundglass and consolidative opacities which may represent aspiration and/or pneumonia. On Rocephin, doxycycline Procalcitonin normal Transition to oral antibiotics tomorrow Right hand cellulitis On Keflex, doxycycline as outpatient Hold home medications Continue Rocephin, doxycycline for now Hematemesis ? Secondary to esophageal varices S/P EGD: Grade 1 varices found in the lower third of the esophagus. Continue PPI Received octreotide Monitor H&H and transfuse PRBCs as needed Avoid NSAIDs Appreciate GI input No recurrence of hemoptysis Hemoglobin 13.0 today Resolved Compensated HCV cirrhosis No encephalopathy secondary to cirrhosis as per GI Avoid hepatotoxic agents Low-salt diet Mood disorder/personality disorder Resume home medications Monitor Consider psychiatry evaluation if needed Prediabetes HbA1C: 5.2 is January 2021 Ongoing tobacco abuse Consult to quit smoking DVT Px: SCDs for now Code Status Full code Admission and Anticipated Discharge Date Admission Date: June 19, 2021 Subjective Patient is seen and examined at bedside Tearful during my encounter Double, blurry vision continues to improve States having persistent pain of right orbital region Uncomfortable to be discharged home today Denies chest pain, dyspnea, dizziness, nausea, abdominal pain Review of Systems Review of Systems: All systems reviewed & are unremarkable except as noted in Subjective Physical Exam Physical Exam: Physical Exam: Vitals signs as noted above General Appearance:Moderately built and nourished, no apparent distress Head: normocephalic, Atraumatic Eyes: normal inspection, Right periorbital ecchymosis, erythema, tender Neck: supple, Trachea midline Respiratory/Chest: Decreased breath sounds, CTA Cardiovascular: S1, S2, No murmur Abdomen/GI:Soft, Non tender, Bowel sounds present Extremities/Musculoskeletal:normal inspection, Right hand swelling, erythema Neurologic/Psych:AAOX3, grossly no focal neurological deficits Skin: normal color, warm Results & Data Results & Data ([facility]) Vital Signs (Past 12 Hours) Vital Signs Temp Pulse Resp BP BP Pulse Ox 06/23/21 16:11 36.7 C 64 18 99/61 L 93 06/23/21 15:27 71 17 92 06/23/21 11:14 36.2 C L 70 18 99/64 L 92 06/23/21 10:54 72 20 92 06/23/21 07:34 36.7 C 70 18 103/64 96 06/23/21 07:13 67 16 91 Laboratory Results Short CBC 06/23/21 Range/Units 07:36 WBC 4.01 L (4.8-10.8) K/uL Hgb 13.0 (12.0-16.0) g/dL Hct 40.1 (37-47) % Plt Count 93 L (130-400) K/uL BMP 06/23/21 07:36 Sodium 139 Potassium 4.1 Chloride 105 Carbon Dioxide 26 BUN 13 Creatinine 0.55 L Glucose 97 Calcium 9.0
[2021-06-24] MEDS: cefTRIAXone SODIUM 2,000 MG in DEXTROSE 5% 50 ML IV SCH (01:24)
[2021-06-24] MEDS: ALBUT/IPRATROP 3MG/0.5MG NEB 3 ML VIAL INH SCH ×4 (07:12→19:16)
[2021-06-24 07:16] LABS: BUN Creatinine Ratio 22.7 (10-20); Calcium 9.3 mg/dl (8.5-10.1); Est GFR (African American) 117.9 ml/min; Est GFR (Non-African American) 101.7 ml/min; Potassium 4.1 mmol/L (3.5-5.1)
[2021-06-24 07:19] LABS: Hematocrit (blood only) 39.4 % (37-47); Mean Corpuscular Volume 87.9 fL (80-100); RDW Coefficient of Variation 16.3 % (11.5-14.5); RDW Standard Deviation 52.8 fL (36.4-46.3); Red Blood Count 4.48 M/uL (4.2-5.4); White Blood Count 4.06 K/uL (4.8-10.8)
[2021-06-24 07:34] LABS: Mean Platelet Volume 10.5 fL (7.4-10.4); Platelet Count 79 K/uL (130-400)
[2021-06-24] MEDS: risperiDONE 0.5 MG TABLET PO SCH ×2 (07:56→21:02)
[2021-06-24] MEDS: PANTOprazole 40 MG in SYRINGE 0 ML IV SCH ×2 (07:56→21:07)
[2021-06-24] MEDS: CIPROFLOXACIN / D5W 400 MG/200 ML BAG IV SCH (07:56)
[2021-06-24] MEDS: lamoTRIgine 100 MG TAB PO SCH ×2 (07:57→22:32)
[2021-06-24] MEDS: THIAMINE HCL 100 MG TAB PO SCH (07:57)
[2021-06-24] MEDS: lamoTRIgine 25 MG TAB PO SCH ×2 (07:57→21:04)
[2021-06-24] MEDS: CITALOPRAM 20 MG TAB PO SCH (07:57)
[2021-06-24] MEDS: FOLIC ACID 1 MG TAB PO SCH (07:57)
[2021-06-24] MEDS: MULTIVITAMIN TAB PO SCH (07:58)
[2021-06-24] MEDS: oxyCODONE/ACETAMINOPHEN 5mg/325mg TAB PO PRN ×3 (08:05→21:03)
[2021-06-24] MEDS: DOXYCYCLINE HYCLATE 100 MG in DEXTROSE 5% 100 ML IV SCH (11:39)
--- NOTE | 2021-06-24 14:06 | Oral/Maxillofacial Progress Nt ---
Date of Service June 24, 2021 I saw Natacha at 6 pm TuesdayJun 23 in room 256. She still has swelling but greatly improved over my last visit. Her vision has improved but she still complains of right lateral vision issues which was also noted by ophthalmology. She moves her eye around very well and does not complain of any double vision. I discussed that I would like to see her in 10-14 days and I gave her my office information. She is OK for discharge Impression : Blunt trauma to right eye w/o entrapment. Assessment & Plan Admission and Anticipated Discharge Date Admission Date: June 19, 2021 Results & Data ([facility]) Vital Signs (Past 12 Hours) Vital Signs Temp Pulse Pulse Resp BP Pulse Ox 06/24/21 11:09 36.9 C 59 L 16 91/52 L 92 06/24/21 10:46 63 18 95 06/24/21 08:00 63 06/24/21 07:13 74 16 95 06/24/21 06:59 36.8 C 67 18 94/53 L 93 06/24/21 03:03 36.5 C 67 18 105/68 93 PG Care Time/CCT Total # of Minutes Spent Total Time Spent with Patient: Total time spent is greater than 50% in coordination of care (as documented) at patient's floor/unit and/or counseling patient: Coding Level of Care Code 01535 Subseq Hosp Care Lvl 1
--- NOTE | 2021-06-24 15:57 | Hospitalist Progress Note ---
Date of Service June 24, 2021 Assessment & Plan (1) Encephalopathy: Plan: per Dr. Solis's notes with addendum: Encephalopathy Likely multifactorial: Metabolic encephalopathy, medications,? Drug Use, Concussion Fall, head trauma, concussion Right orbital fracture Retrobulbar emphysema and fat herniation Double/blurry vision on right -CT head:No acute intracranial abnormality. Please see dedicated maxillofacial CT for detailed findings of facial fractures. -Facial CT:Fractures of the inferior, lateral, and medial rosales of the right orbit and mildly comminuted fractures of all 3 rosales in the maxillary sinus. The optic nerve and extraocular muscles are unremarkable. There is retrobulbar emphysema and fat herniation. -Toxicology screen positive for marijuana, amphetamines -MRI Brain:No acute intracranial abnormality or abnormal enhancement. Acute right-sided facial bone fractures are better characterized on the CT maxillofacial study from 06/18/2021. There is persistent right facial soft tissue swelling with hemorrhage and mucosal secretions within the right maxillary sinus. -Alcohol level negative Ammonia level only mildly elevated Continue neuro checks Appreciate Oromaxillary surgery and ophthalmology input Needs follow-up with oromaxillary surgery, ophthalmology upon discharge [place] appears uninjured as per ophthalmology. No surgical treatment currently advised by oromaxillary surgery. Needs to avoid nose blowing as per surgery Mental status back to baseline Pain control 06/24 mental status back to baseline repeat CT head: no acute findings Suspected Pneumonitis CT Chest: No evidence of acute fracture. Multifocal groundglass and consolidative opacities which may represent aspiration and/or pneumonia. On Rocephin, doxycycline Procalcitonin normal Transition to Cefdinir + Doxy PO Right hand cellulitis On Keflex, doxycycline as outpatient resolving Continue Cefdinir + doxycycline for now Hematemesis ? Secondary to esophageal varices S/P EGD: Grade 1 varices found in the lower third of the esophagus. Continue PPI Received octreotide Monitor H&H and transfuse PRBCs as needed Avoid NSAIDs Appreciate GI input No recurrence of hemoptysis Hemoglobin 13.0 today Resolved 06/24 Hg stable continue Protonix Compensated HCV cirrhosis No encephalopathy secondary to cirrhosis as per GI Avoid hepatotoxic agents Low-salt diet Mood disorder/personality disorder Resume home medications Monitor Consider psychiatry evaluation if needed Prediabetes HbA1C: 5.2 is January 2021 Ongoing tobacco abuse Consult to quit smoking DVT Px: SCDs for now Code Status Full code Admission and Anticipated Discharge Date Admission Date: June 19, 2021 Subjective ff up for s/p fall, orbital fx, ecchymoses, etc seen resting in bed, comfortable not in distress states she has r sided headache no new neuro symptoms r eye still blurry on the lateral aspect no other focal neuro deficits no chest pain, dyspnea, palpitations, dizziness no other symptoms Review of Systems Review of Systems: all noted and negative except for above Physical Exam Physical Exam: General- oriented x 3, not in distress, speaks in sentences with no effort or accessory muscle use Eyes- (+) mild R ecchymoses Neck- no JVD Lungs- clear breath sounds bilaterally, no rales/wheezes Heart- normal rate, regular rhythm; no murmurs Abdomen- normal bowel sounds, nondistended, soft, nontender Extremities- no pretibial edema, no calf tenderness Neuro- alert, oriented x 3; no gross focal neurologic deficits Skin- warm & dry Results & Data Results & Data ([facility]) Vital Signs (Past 12 Hours) Vital Signs Temp Pulse Pulse Resp BP Pulse Ox 06/24/21 15:09 59 L 06/24/21 14:57 62 16 93 06/24/21 14:41 36.7 C 61 18 93/58 L 96 06/24/21 11:09 36.9 C 59 L 16 91/52 L 92 06/24/21 10:46 63 18 95 06/24/21 08:00 63 06/24/21 07:13 74 16 95 06/24/21 06:59 36.8 C 67 18 94/53 L 93 all noted and reviewed including below
--- NOTE | 2021-06-24 16:43 | CT Scan Report ---
HEAD CT NONCONTRAST CT DOSE: 537.48 mGy.cm HISTORY: headache, s/p fall, r/o bleed TECHNIQUE: Multiaxial CT images of the head were performed without the use of intravenous contrast. A utomated exposure control was utilized for this study. A dose lowering technique was utilized adheri ng to the principles of ALARA. Comparison: Head CT 06/18/2021. Findings: The patient's previously identified right orbital fractures are better appreciated on the r ecent maxillofacial CT. There is persistent hemorrhage within the right maxillary sinus, unchanged. T he mastoid air cells are clear. The calvarium and skull base are intact. The ventricles and sulci are within normal limits. There is no mass, hematoma, midline shift, or acute infarct. Impression: 1. No acute intracranial abnormality. 2. The patient's known right orbital floor fractures are better appreciated on the recent maxillofaci al CT. ACT 112: Negative or not required by law. Electronically signed by: Ketnon Florian M.D. 06/24/2021 4:41 PM
[2021-06-24] MEDS: DOXYCYCLINE HYCLATE 100 MG CAP PO SCH (21:05)
[2021-06-24] MEDS: CEFDINIR 300 MG CAP PO SCH (21:06)
[2021-06-25] MEDS: ACETAMINOPHEN 325 MG TAB PO PRN (01:56)
[2021-06-25] MEDS: oxyCODONE/ACETAMINOPHEN 5mg/325mg TAB PO PRN ×3 (03:37→18:06)
[2021-06-25] MEDS: ALBUT/IPRATROP 3MG/0.5MG NEB 3 ML VIAL INH SCH (07:11)
[2021-06-25] MEDS: lamoTRIgine 25 MG TAB PO SCH (09:10)
[2021-06-25] MEDS: MULTIVITAMIN TAB PO SCH (09:10)
[2021-06-25] MEDS: risperiDONE 0.5 MG TABLET PO SCH (09:11)
[2021-06-25] MEDS: lamoTRIgine 100 MG TAB PO SCH (09:11)
[2021-06-25] MEDS: FOLIC ACID 1 MG TAB PO SCH (09:12)
[2021-06-25] MEDS: THIAMINE HCL 100 MG TAB PO SCH (09:12)
[2021-06-25] MEDS: CEFDINIR 300 MG CAP PO SCH (09:12)
[2021-06-25] MEDS: PANTOprazole 40 MG in SYRINGE 0 ML IV SCH (09:13)
[2021-06-25] MEDS: CITALOPRAM 20 MG TAB PO SCH (09:13)
[2021-06-25] MEDS: DOXYCYCLINE HYCLATE 100 MG CAP PO SCH ×2 (09:13→19:30)
[2021-06-25] MEDS ORDERED: PANTOprazole 40 MG TAB PO SCH (21:00)
--- NOTE | 2021-06-26 07:47 | Hospitalist Progress Note ---
Date of Service June 25, 2021 delayed entry date of service noted above Assessment & Plan (1) Encephalopathy: Plan: per Dr. Solis's notes with addendum: Encephalopathy Likely multifactorial: Metabolic encephalopathy, medications,? Drug Use- UDS (+) for marijuana, amphetamine, MDMA; Concussion Fall, head trauma, concussion Right orbital fracture Retrobulbar emphysema and fat herniation Double/blurry vision on right -CT head:No acute intracranial abnormality. Please see dedicated maxillofacial CT for detailed findings of facial fractures. -Facial CT:Fractures of the inferior, lateral, and medial rosales of the right orbit and mildly comminuted fractures of all 3 rosales in the maxillary sinus. The optic nerve and extraocular muscles are unremarkable. There is retrobulbar emphysema and fat herniation. -Toxicology screen positive for marijuana, amphetamines -MRI Brain:No acute intracranial abnormality or abnormal enhancement. Acute right-sided facial bone fractures are better characterized on the CT maxillofacial study from 06/18/2021. There is persistent right facial soft tissue swelling with hemorrhage and mucosal secretions within the right maxillary sinus. -Alcohol level negative Ammonia level only mildly elevated Dr. Benitez Opthalmologist consulted [place] appears uninjured as per ophthalmology. ff up with Opthalmology in 1-[address] Berger Oromaxillofacial surgeon consulted No surgical treatment currently advised by oromaxillary surgery. Needs to avoid nose blowing as per surgery ff up with Dr. Berger in 1-2 weeks 06/25 mental status back to baseline repeat CT head: no acute findings patient requesting [place] PRN for pain PDMP queried, given 8 tabs of [place] ff up with PCP 06/[address] Chest: No evidence of acute fracture. Multifocal groundglass and consolidative opacities which may represent aspiration and/or pneumonia. On Rocephin, doxycycline Procalcitonin normal Transitioned to Cefdinir + Doxy PO- completed 6/7 days Right hand cellulitis On Keflex, doxycycline as outpatient resolving Continue doxycycline x 4 more days to complete 10 day course Hematemesis ? Secondary to esophageal varices S/P EGD: Grade 1 varices found in the lower third of the esophagus. given Protonix, octreotide Hg stable continue Protonix BID Compensated HCV cirrhosis No encephalopathy secondary to cirrhosis as per GI Avoid hepatotoxic agents Low-salt diet Mood disorder/personality disorder Resume home medications Monitor Prediabetes HbA1C: 5.2 is January 2021 Ongoing tobacco abuse Counseled to quit smoking plan of care discussed with patient in detail and at length all questions answered she is understanding, agreeable, comfortable with the plan of care ff up with PCP 06/26 Admission and Anticipated Discharge Date Admission Date: June 19, 2021 Subjective ff up for s/p fall, r orbital fracture, etc seen resting in bed, comfortable states she feels fine overall r eye vision about the same, no worsening headache better no nausea/vomiting, new focal neuro deficits states right thumb proximal part sore today no other symptoms states she is ready and would like to be discharged today Review of Systems Review of Systems: all noted and negative except for above Physical Exam Physical Exam: General- oriented x 3, not in distress, speaks in sentences with no effort or accessory muscle use Eyes- r periorbital hematoma improving full eoms Face- mild hematoma on the r lower cheek improving Neck- no JVD Lungs- clear breath sounds BL Heart- normal rate, regular rhythm; no murmurs Abdomen- normal bowel sounds, nondistended, soft, nontender Extremities- no pretibial edema, no calf tenderness r hand- mild erythema and tenderness on the proximal thumb Neuro- alert, oriented x 3; no gross focal neurologic deficits Skin- warm & dry Results & Data Results & Data ([facility]) Vital Signs (Past 12 Hours) Vital Signs Temp Pulse Pulse Resp BP BP Pulse Ox 06/25/21 12:00 37.0 C 60 18 91/47 L 94 06/25/21 09:00 59 L 06/25/21 07:12 62 16 95 06/25/21 07:00 36.7 C 70 20 126/69 95 06/25/21 03:54 36.5 C 61 20 131/69 96 all noted and reviewed including below
--- NOTE | 2021-06-26 08:46 | Discharge Summary ---
Date of Service June 26, 2021 Admission HPI Per Admitting Provider History obtained from patient, family, and records. Limited history from patient secondary disoriented state. Medical history significant for mood disorder, personality disorder as per records, gout, HCV status post Rx, prediabetes, history of substance abuse as per family, ongoing tobacco abuse. Patient seen at the ER 2 weeks ago for right hand cellulitis. Improving with outpatient Keflex Rx as per outpatient PCP note from last week. Patient called her daughter on the phone last night telling her that she had fallen down. Patient sounded confused on the phone. Patient daughter alerted EMS. Patient daughter unaware of any recent stressors. Upon EMS arrival, patient found sitting on a toilet and responding to person only. Patient found to have facial trauma, bruising on the right eye. Following commands. Patient noted to be hypoxemic O2 sats noted to be 80s. Patient unable to give full account of what happened at home. Unable to answer questions regarding blurred vision, chest pain, S OB, syncope, abdominal pain. Patient with hematemesis episode at the ER. IV PPI initiated at the ER. 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, disabled Admission Exam (Per Admitting) Constitutional GENERAL: Obtunded, no respiratory distress, obese SKIN: Normal color, warm HEENT: Periorbital ecchymosis right, pink palpebral conjunctivae, dry buccal mucosa, nasal cannula in place NECK : Supple, no tenderness CHEST : CTA, no tenderness HEART : RRR, no obvious murmurs ABDOMEN: Some distention, nontender EXTREMITIES : Minimal LE swelling, no LE tenderness, no other conspicuous deformities noted NEUROLOGIC : Obtunded, no facial asymmetry, no other gross focality Discharge Data Consultations 06/18/21 23:30 Consult Physician Stat 06/19/21 01:04 Consult Gastroenterology Routine 06/20/21 12:35 Consult Ophthalmology Routine Procedures Performed CT abd pelvis IV con only CLINICAL HISTORY: trauma TECHNIQUE: Helical axial images of the abdomen and pelvis were obtained and displayed. Automated dose lowering techniques and/or adjustment according to patient size were utilized for this exam. This exam was performed with intravenous contrast. COMPARISON: Comparison is made to CT abdomen pelvis 02/22/2021 FINDINGS: Lower chest: For findings above the diaphragm, please see CT chest performed same day. Liver: Nodular contour of the liver is seen compatible with cirrhosis. Gallbladder and biliary tree: Patient is status post cholecystectomy. No intra- or extrahepatic biliary ductal dilation. Pancreas: Unremarkable, no focal lesions. Spleen: Unremarkable. Adrenals: Unremarkable. Kidneys and ureters: Unremarkable. Bladder: Unremarkable. Reproductive organs: Unremarkable. Bowel: A duodenal diverticulum is seen. Lymph nodes Retroperitoneal: Unremarkable. Mesenteric: Unremarkable. Pelvic: Unremarkable. Peritoneum: Normal Vessels: Atherosclerotic calcifications are seen. Abdominal wall: Unremarkable. Bones: Degenerative changes in the visualized spine. IMPRESSION: No evidence of acute abnormality. Cirrhosis, splenomegaly, and likely portal hypertension noted. ACT 112: Negative or not required by law. CT chest diagnostic w con CLINICAL HISTORY: trauma TECHNIQUE: Multidetector row helical CT of the chest was performed. Coronal and sagittal reformations were obtained. Automated dose lowering techniques and/or adjustment according to patient size were utilized for this exam. Comparison: None available at the time of this dictation. FINDINGS: Lungs and pleura: Diffuse groundglass and consolidative opacities are seen favoring the lower lungs. There are scattered emphysematous changes. Bronchial wall thickening is seen with mosaic attenuation. Heart and pericardium: There is cardiomegaly without evidence of pericardial effusion. Vessels: The pulmonary trunk measures 30 mm in diameter. Mediastinum and thomas: Unremarkable. Chest wall and lower neck: Unremarkable. Abdomen: For findings below the diaphragm, please refer to CT of the abdomen dated the same. Bones: Unremarkable. IMPRESSION: 1. No evidence of acute fracture. 2. Multifocal groundglass and consolidative opacities which may represent aspiration and/or pneumonia. 3. Cardiomegaly. ACT 112: Negative or not required by law. CT facial bones wo con CLINICAL HISTORY: trauma TECHNIQUE: Multidetector row helical CT of the maxillofacial bones was performed without administration of intravenous contrast, and processed with bone and soft tissue algorithms. Coronal and sagittal reformations were obtained. Automated dose lowering techniques and/or adjustment according to patient size were utilized for this exam. Comparison: None available at the time of this dictation. FINDINGS: There is a fracture of the right orbit involving the inferior, lateral, and medial rosales. Fractures of all 3 rosales of the right maxillary sinus are noted. Nasal bones are normal. The mandible is intact. The temporomandibular joints are anatomically aligned. Pterygoid plates are intact. Zygomatic arches are intact. The globes are normal and symmetric, without proptosis, obvious disruption or lens dislocation. There is no orbital radiopaque foreign body. Multiple gas locules are noted in the retrobulbar fat on the right. The extraocular muscles are normal and in particular there is no evidence of herniation or entrapment. Mild inferior herniation of the retrobulbar fat is seen. Optic nerve sheath complexes are normal in course and caliber. Air-fluid level in the right maxillary sinus with hyperdense fluid compatible with hemorrhage. There is a mucous retention cyst in the left sphenoid sinus and opacification of scattered ethmoid air cells. IMPRESSION: Fractures of the inferior, lateral, and medial rosales of the right orbit and mildly comminuted fractures of all 3 rosales in the maxillary sinus. The optic nerve and extraocular muscles are unremarkable. There is retrobulbar emphysema and fat herniation. ACT 112: Negative or not required by law. Operation Date: 06/19/21 11:00 Actual Procedures p Esophagogastroduodenoscopy - Milana Corrales MD Operation Date: 06/19/21 17:15 <No data on this case meets the specified criteria> Hospital Course (1) Encephalopathy: per Dr. Solis's notes with addendum: Encephalopathy Likely multifactorial: Metabolic encephalopathy, medications,? Drug Use- UDS (+) for marijuana, amphetamine, MDMA; Concussion Fall, head trauma, concussion Right orbital fracture Retrobulbar emphysema and fat herniation Double/blurry vision on right -CT head:No acute intracranial abnormality. Please see dedicated maxillofacial CT for detailed findings of facial fractures. -Facial CT:Fractures of the inferior, lateral, and medial rosales of the right orbit and mildly comminuted fractures of all 3 rosales in the maxillary sinus. The optic nerve and extraocular muscles are unremarkable. There is retrobulbar emphysema and fat herniation. -Toxicology screen positive for marijuana, amphetamines -MRI Brain:No acute intracranial abnormality or abnormal enhancement. Acute right-sided facial bone fractures are better characterized on the CT maxillofacial study from 06/18/2021. There is persistent right facial soft tissue swelling with hemorrhage and mucosal secretions within the right maxillary sinus. -Alcohol level negative Ammonia level only mildly elevated Dr. Benitez Opthalmologist consulted [place] appears uninjured as per ophthalmology. ff up with Opthalmology in 1-[address] Berger Oromaxillofacial surgeon consulted No surgical treatment currently advised by oromaxillary surgery. Needs to avoid nose blowing as per surgery ff up with Dr. Berger in 1-2 weeks 06/25 mental status back to baseline repeat CT head: no acute findings patient requesting [place] PRN for pain PDMP queried, given 8 tabs of Silex ff up with PCP 06/[address] Chest: No evidence of acute fracture. Multifocal groundglass and consolidative opacities which may represent aspiration and/or pneumonia. On Rocephin, doxycycline Procalcitonin normal Transitioned to Cefdinir + Doxy PO- completed 6/7 days Right hand cellulitis On Keflex, doxycycline as outpatient resolving Continue doxycycline x 4 more days to complete 10 day course Hematemesis ? Secondary to esophageal varices S/P EGD: Grade 1 varices found in the lower third of the esophagus. given Protonix, octreotide Hg stable continue Protonix BID Compensated HCV cirrhosis No encephalopathy secondary to cirrhosis as per GI Avoid hepatotoxic agents Low-salt diet Mood disorder/personality disorder Resume home medications Monitor Prediabetes HbA1C: 5.2 is January 2021 Ongoing tobacco abuse Counseled to quit smoking plan of care discussed with patient in detail and at length all questions answered she is understanding, agreeable, comfortable with the plan of care ff up with PCP 06/26
--- NOTE | 2021-07-03 12:57 | Coding Query ---
CODING QUERY To promote full compliance with coding requirements relating to patient care, provider participation is requested in all cases of school business manager uncertainty. Please assist us with the question(s) below: Coding Question(s): Please specify below, in your clinical opinion, the diagnosis most responsible for occasioning the Inpatient Admission. More than one can be chosen if they are equally responsible for the admission. ( ) Hematemesis/GI bleeding - possible secondary to esophageal varices. Please specify further: ( x ) esophageal varices in HCV Cirrhosis ( ) other esophageal varices, Please Specify ( ) Other Hematemesis/GI Bleeding : Please Specify ( ) Right Orbital Fracture. Please specify further below: ( x ) Fracture of orbital floor, blow-out, right, closed as documented by Oral/Maxillofacial Surgery Consult and Consult by Dr. Huggins and ER ( ) Other Right Orbital Fracture. Please Specify ( ) Encephalopathy, Multifactorial: Metabolic encephalopathy, medications,? Drug Use- UDS (+) for marijuana, amphetamine, MDMA; Concussion Fall, head trauma, concussion Right orbital fracture. Please Specify further regarding the Encephalopathy due to drug use: ( ) Encephalopathy due to Drug Use means due to her regular prescribed medication taken as prescribed ( ) Encephalopathy due to Drug Use means due to illegal drug use - marijuana, amphetamine, MDMA ( x ) Encephalopathy due to Drug Use means other - Please Specify____marijuana; possible unintentional ingestion of amphetamine, MDMA ( ) Other: Please Specify Physician's Response(s): Thank you Jessy So Principal Diagnosis: "that condition established after study, to be chiefly responsible for occasioning the admission of the patient to the hospital for care." Co-Existing Principal Diagnosis: "when two or more diagnoses equally meet the criteria for principal diagnosis as determined by the circumstances of admission, diagnostic work up, and/or therapy provided, and the Alphabetic Index, Tabular List, or another coding guideline does not provide sequencing direction, any one of the diagnoses may be sequenced first." "When the physician has documented what appears to be a current diagnosis in the body of the record, but has not included the diagnosis in the final diagnostic statement, the physician should be asked whether the diagnosis should be added." ([facility] 2 QTR90. p3-4) [email or web address]
== END 2021-06-25 20:40 | disposition home health service (06) | DRG 432 ==
LOC: ED 21:03 → EDINP 06-19 00:31 → SUATTDRO 06-19 00:31 → 2W 06-19 00:52

== ENCOUNTER 2022-04-22 13:26 | Inpatient (IN) ==
[2022-04-22 14:30] LABS: Hematocrit (blood only) 17.4 % (34.1-44.9); Hemoglobin 4.9 g/dl (12.0-16.0); Mean Corpuscular Hemoglobin 21.2 pg (25.0-34.0); Mean Corpuscular Hgb Conc 28.2 g/dL (32.0-36.0); Mean Corpuscular Volume 75.3 fL (80.0-100.0); Mean Platelet Volume 11.4 fL (9.4-12.3); Platelet Count 101 K/uL (130-400); RDW Coefficient of Variation 18.1 % (11.5-14.5); RDW Standard Deviation 49.7 fL (36.4-46.3); Red Blood Count 2.31 M/uL (3.93-5.22); White Blood Count 4.05 K/ul (4.8-10.8)
[2022-04-22 14:35] LABS: Albumin Globulin Ratio 1.5 (0.9-2); Albumin Level 3.8 gm/dl (3.4-5.0); BUN Creatinine Ratio 35.7 (10-20); Bilirubin,Total 0.6 mg/dl (0.2-1.0); Calcium 8.6 mg/dl (8.5-10.1); Creatinine Clr Calc Pharmacy 163.8 ml/min; Est GFR (African American) 133.7 ml/min; Est GFR (Non-African American) 115.4 ml/min; Globulin 2.5 gm/dl (2.5-4.0); Magnesium 1.7 mg/dl (1.7-2.4); Potassium 3.6 mmol/L (3.5-5.1); Total Protein 6.3 gm/dl (6.0-8.3)
[2022-04-22 14:36] LABS: INR 1.1 (0.9-1.1); Partial Thromboplastin Ratio 0.9; Partial Thromboplastin Time 24.3 Seconds (21.0-31.0); Prothrombin Time 11.3 Seconds (9.0-12.0)
--- NOTE | 2022-04-22 14:46 | Emergency Department Note ---
History of Present Illness General Chief complaint: Shortness of Breath/Dyspnea Stated complaint: SOB, LEG EDEMA Time Seen by Provider: 04/22/22 14:18 Source: patient Mode of arrival: ambulatory Limitations: no limitations History of Present Illness Provider complaint: leg swelling, shortness of breath Onset (ago): day(s) Maximum Pain Intensity: 3 Treatments prior to arrival: none This is a 57-year-old female presents emergency department complaining of leg swelling and shortness of breath. Patient states the leg swelling began approximately a week ago. She states no prior history of significant swelling no use of daily diuretics. She states 3 days ago she began feeling more short of breath. She states it is worse lying flat or with exertion. She denies any coming chest pain or pressure, denies any palpitations. She states she does have a slight cough although it is mostly nonproductive. Patient is a smoker. She denies any nasal congestion, rhinorrhea, or sore throat. No change in her sputum. Patient denies any change in urine or stools. States she has had a normal appetite. Patient was recently incarcerated and then went to rehab for methamphetamine abuse. She states she did previously have an inhaler and nebuli zer due to her tobacco abuse however it is locked up in storage and she has been unable to get to it since coming home from rehab 4 days ago. Home Medications Medication Instructions Recorded Confirmed Type cyclobenzaprine 5 mg tablet 5 mg PO TID PRN Muscle Spasm 01/30/22 04/22/22 History pantoprazole 40 mg tablet,delayed 40 mg PO DAILYBB 01/30/22 04/22/22 History release cetirizine 10 mg tablet 10 mg PO DAILY 04/22/22 04/22/22 History citalopram 20 mg tablet 20 mg PO DAILY 04/22/22 04/22/22 History diclofenac sodium 1 % topical gel 4 g topical QID 04/22/22 04/22/22 History diclofenac sodium 50 mg 50 mg PO DAILY 04/22/22 04/22/22 History tablet,delayed release fluticasone propionate 50 2 spray intranasal DAILY 04/22/22 04/22/22 History mcg/actuation nasal spray,suspension gabapentin 800 mg tablet 800 mg PO TID 04/22/22 04/22/22 History lamotrigine 150 mg tablet 150 mg PO BID 04/22/22 04/22/22 History melatonin 10 mg tablet 50 mg PO HS 04/22/22 04/22/22 History mirtazapine 15 mg tablet (Remeron) 15 mg PO HS 04/22/22 04/22/22 History Allergies Allergy/AdvReac Type Severity Reaction Status Date / Time Sulfa (Sulfonamide Allergy Intermediate Hives Verified 01/30/22 16:12 Antibiotics) amitriptyline [From Elavil] AdvReac Intermediate INCREASES Verified 01/30/22 16:12 RESTLESS LEGS prednisone AdvReac Intermediate Vomiting Verified 01/30/22 16:12 quetiapine [From Seroquel] AdvReac Intermediate INCREASES Verified 01/30/22 16:12 RESTLESS LEGS tramadol AdvReac Intermediate INCREASES Verified 01/30/22 16:12 RESTLESS LEGS trazodone AdvReac Intermediate INCREASES Verified 01/30/22 16:12 RESTLESS LEGS Past Med/Surg History Medical History Asthma Bipolar 2 disorder Compensated HCV cirrhosis Degenerative disc disease Encephalopathy Facial fracture due to fall Fracture of toe of right foot GERD (gastroesophageal reflux disease) Hematemesis Peripheral neuropathy Personality disorder Substance abuse Surgical History History of laparoscopic cholecystectomy History of removal of ovarian cyst Family History Aunt Breast cancer Uncle Cirrhosis Brother Stomach cancer Social History Smoking Status: Current every day smoker Tobacco Type: Cigarettes Cigarettes Per Day: 8; Tobacco Cessation Education Requested by Patient: Yes Hx Alcohol Use: No Hx Substance Use: Yes Non-Prescribed Medications: Crack / Cocaine, Marijuana and Other Non-Prescribed Medications Comment: Suboxone (8 mg strip over 2-3 days) Last Used Substance: Days (ago) Last Used Substance Other:: since dis charge from rehab Preferred Language: [place] Imagery Analyst Required: No Beliefs That Will Affect Care: None Current Living Situation: Alone Other Information That Helps Us Care for You: No Feels Safe at Home: Yes Safety Concerns: Feels Safe At This Time Assistive Devices: None Review of Systems A total of 10 systems reviewed and were otherwise negative All systems reviewed & are unremarkable except as noted in HPI & below Physical Exam Vital Signs Vital Signs - 24 hr 04/22/22 13:42 04/22/22 13:41 04/22/22 13:41 Temperature 36.5 C Temperature Source Oral Pulse Rate 93 H Pulse Rate from SpO2 Sensor Pulse Rhythm Regular Pulse Strength Normal Respiratory Rate 24 Respiratory Effort / Characteristics Non-Labored Non-Labored Respiratory Depth Normal Normal Respiratory Pattern Regular Regular Blood Pressure 145/59 H Blood Pressure Mean 87 Blood Pressure Position Lying Pulse Oximetry 94 Oxygen Delivery Method Room Air Room Air Room Air Oxygen Flow Rate Sepsis Recent Fever Within 48 Hours No Sepsis New/Unexplained Change in Mental Status N/A Sepsis Action Taken by Nursing No Action Required 04/22/22 13:41 04/22/22 14:09 04/22/22 14:09 Temperature Temperature Source Pulse Rate Pulse Rate from SpO2 Sensor Pulse Rhythm Pulse Strength Respiratory Rate 24 21 Respiratory Effort / Characteristics Non-Labored Non-Labored Spontaneous Respiratory Depth Normal Respiratory Pattern Regular Blood Pressure Blood Pressure Mean Blood Pressure Position Pulse Oximetry 93 93 Oxygen Delivery Method Room Air Room Air Room Air Oxygen Flow Rate Sepsis Recent Fever Within 48 Hours Sepsis New/Unexplained Change in Mental Status Sepsis Action Taken by Nursing 04/22/22 14:24 04/22/22 14:30 04/22/22 14:30 Temperature Temperature Source Pulse Rate 86 88 Pulse Rate from SpO2 Sensor 87 89 Pulse Rhythm Pulse Strength Respiratory Rate 21 30 H Respiratory Effort / Characteristics Respiratory Depth Respiratory Pattern Blood Pressure 114/56 L Blood Pressure Mean 75 Blood Pressure Position Pulse Oximetry 93 95 Oxygen Delivery Method Oxygen Flow Rate Sepsis Recent Fever Within 48 Hours Sepsis New/Unexplained Change in Mental Status Sepsis Action Taken by Nursing 04/22/22 14:45 04/22/22 15:00 04/22/22 15:15 Temperature Temperature Source Pulse Rate 87 88 84 Pulse Rate from SpO2 Sensor 87 89 86 Pulse Rhythm Pulse Strength Respiratory Rate 20 17 20 Respiratory Effort / Characteristics Respiratory Depth Respiratory Pattern Blood Pressure Blood Pressure Mean Blood Pressure Position Pulse Oximetry 94 94 93 Oxygen Delivery Method Oxygen Flow Rate Sepsis Recent Fever Within 48 Hours Sepsis New/Unexplained Change in Mental Status Sepsis Action Taken by Nursing 04/22/22 15:21 04/22/22 15:36 04/22/22 15:37 Temperature Temperature Source Pulse Rate 87 87 Pulse Rate from SpO2 Sensor 87 Pulse Rhythm Pulse Strength Respiratory Rate 24 22 Respiratory Effort / Characteristics Respiratory Depth Respiratory Pattern Blood Pressure 131/63 Blood Pressure Mean 85 Blood Pressure Position Pulse Oximetry 99 Oxygen Delivery Method Oxygen Flow Rate Sepsis Recent Fever Within 48 Hours Sepsis New/Unexplained Change in Mental Status Sepsis Action Taken by Nursing 04/22/22 15:45 04/22/22 16:00 04/22/22 16:00 Temperature Temperature Source Pulse Rate 90 87 Pulse Rate from SpO2 Sensor Pulse Rhythm Pulse Strength Respiratory Rate 31 H 20 Respiratory Effort / Characteristics Respiratory Depth Respiratory Pattern Blood Pressure 126/63 Blood Pressure Mean 84 Blood Pressure Position Pulse Oximetry Oxygen Delivery Method Oxygen Flow Rate Sepsis Recent Fever Within 48 Hours Sepsis New/Unexplained Change in Mental Status Sepsis Action Taken by Nursing 04/22/22 14:09 Temperature Temperature Source Pulse Rate Pulse Rate from SpO2 Sensor Pulse Rhythm Pulse Strength Respiratory Rate Respiratory Effort / Characteristics Respiratory Depth Respiratory Pattern Blood Pressure Blood Pressure Mean Blood Pressure Position Pulse Oximetry 98 Oxygen Delivery Method Nasal Cannula Oxygen Flow Rate 2 Sepsis Recent Fever Within 48 Hours Sepsis New/Unexplained Change in Mental Status Sepsis Action Taken by Nursing GENERAL: alert, well appearing, well nourished, no distress, non-toxic EYE EXAM: normal conjunctiva, PERRL and EOM's grossly intact OROPHARYNX: no exudate, no erythema, lips, buccal mucosa, and tongue normal and mucous membranes are dry, poor dentition NECK: supple, no nuchal rigidity, no adenopathy, non-tender LUNGS: Clear but decreased b/l to auscultation. Normal chest wall mechanics, no w/r/r HEART: no murmurs, S1 normal and S2 normal ABDOMEN: abdomen soft, non-tender, normo-active bowel sounds, no masses, no rebound or guarding. BACK: Back is symmetrical on inspection and there is no deformity, no midline tenderness, no CVA tenderness. SKIN: no rashes and no bruising UPPER EXTREMITIES: upper extremities are grossly normal. FROM, nml pulses b/l. LOWER EXTREMITIES: 3+ b/l pitting edema. FROM, nml pulses b/l. NEURO EXAM: Normal sensorium, cranial nerves II-XII grossly intact, normal speech, no gross weakness of arms, no gross weakness of legs. Gross sensation intact. Course Course 1525: Patient updated at bedside. Administered Medications Cetirizine HCl (Cetirizine Hcl 10 Mg Tablet) 10 mg PO DAILY IRON Stop: 05/23/22 08:59 Last Admin: 04/23/22 13:44 Dose: 10 mg Documented By: JEROD Citalopram Hydrobromide (Citalopram 20 Mg Tab) 20 mg PO DAILY IRON Stop: 05/23/22 08:59 Last Admin: 04/23/22 13:45 Dose: 20 mg Documented By: JEROD Fluticasone Propionate (Fluticasone Propionate Na Spr 16 Gm Btl) 2 sprays NA DAILY IRON Stop: 05/23/22 08:59 Last Admin: 04/23/22 09:10 Dose: 2 sprays Documented By: JEROD Gabapentin (Gabapentin 800 Mg Tab) 800 mg PO TID IRON Stop: 05/22/22 20:59 Last Admin: 04/23/22 20:57 Dose: 800 mg Documented By: Admin: 04/23/22 13:46 Dose: Not Given Documented By: Admin: 04/23/22 13:45 Dose: 800 mg Documented By: Admin: 04/22/22 20:46 Dose: 800 mg Documented By: YESY Doxycycline Hyclate 100 mg/ (Dextrose) 110 mls @ 50 mls/hr IV Q12H IRON Stop: 04/29/22 19:59 Last Admin: 04/23/22 20:54 Dose: 50 mls/hr Documented By: Infusion: 04/23/22 11:20 Dose: 0 mls/hr Documented By: Admin: 04/23/22 09:06 Dose: 50 mls/hr Documented By: Infusion: 04/22/22 23:52 Dose: 0 mls/hr Documented By: Admin: 04/22/22 20:43 Dose: 50 mls/hr Documented By: YESY Ceftriaxone Sodium 2,000 mg/ (Dextrose) 70 mls @ 100 mls/hr IV Q24H IRON; Protocol Stop: 04/29/22 19:59 Last Admin: 04/23/22 20:59 Dose: 100 mls/hr Documented By: Infusion: 04/22/22 20:36 Dose: 0 mls/hr Documented By: Admin: 04/22/22 19:54 Dose: 100 mls/hr Documented By: YESY Lamotrigine (Lamotrigine 100 Mg Tab) 150 mg PO BID IRON Stop: 05/22/22 20:59 Last Admin: 04/23/22 20:57 Dose: 150 mg Documented By: Admin: 04/23/22 13:45 Dose: 150 mg Documented By: Admin: 04/22/22 20:46 Dose: 150 mg Documented By: YESY Mirtazapine (Mirtazapine Tab 15 Mg Tab) 15 mg PO HS IRON Stop: 05/22/22 20:59 Last Admin: 04/23/22 20:58 Dose: 15 mg Documented By: Admin: 04/22/22 20:47 Dose: 15 mg Documented By: YESY Discontinued Medications Furosemide (Furosemide 40 Mg/4 Ml Vial) 40 mg IV ONE ONE Stop: 04/22/22 17:26 Last Admin: 04/23/22 01:07 Dose: 40 mg Documented By: YESY Furosemide (Furosemide 40 Mg/4 Ml Vial) Confirm Administered Dose 40 mg IV .STK- MED ONE Stop: 04/23/22 00:46 Last Admin: 04/23/22 00:52 Dose: Not Given Documented By: YESY Furosemide (Furosemide Inj 20 Mg/2 Ml Vial) 20 mg IV ONE ONE Stop: 04/23/22 14:27 Last Admin: 04/23/22 15:00 Dose: 20 mg Documented By: JEROD Pantoprazole Sodium 40 mg/ (Dextrose) 100 mls @ 20 mls/hr IV Q5H IRON Stop: 05/22/22 17:44 Last Admin: 04/23/22 13:57 Dose: Not Given Documented By: Infusion: 04/23/22 13:35 Dose: 0 mg/hr, 0 mls/hr Documented By: Admin: 04/23/22 09:09 Dose: 8 mg/hr, 20 mls/hr Documented By: Infusion: 04/23/22 08:23 Dose: 8 mg/hr, 20 mls/hr Documented By: Admin: 04/23/22 03:23 Dose: 8 mg/hr, 20 mls/hr Documented By: Infusion: 04/23/22 03:23 Dose: 8 mg/hr, 20 mls/hr Documented By: Admin: 04/22/22 22:32 Dose: 8 mg/hr, 20 mls/hr Documented By: Infusion: 04/22/22 22:32 Dose: 8 mg/hr, 20 mls/hr Documented By: Admin: 04/22/22 19:56 Dose: 8 mg/hr, 20 mls/hr Documented By: YESY Pantoprazole Sodium 80 mg/ (Dextrose) 120 mls @ 400 mls/hr IV NOW ONE Stop: 04/22/22 18:02 Last Infusion: 04/22/22 19:50 Dose: 0 mls/hr Documented By: Admin: 04/22/22 19:32 Dose: 400 mls/hr Documented By: YESY Potassium Chloride (K Kenneth / Wtr) 10 meq in 100 mls @ 100 mls/hr IV Q1H IRON Stop: 04/23/22 11:59 Last Admin: 04/23/22 13:44 Dose: Not Given Documented By: Admin: 04/23/22 13:44 Dose: Not Given Documented By: Admin: 04/23/22 13:44 Dose: Not Given Documented By: JEROD Lidocaine HCl (Lidocaine 2% Mpf Local 5 Ml Vial) Confirm Administered Dose 5 ml INFIL .STK-MED ONE Stop: 04/23/22 12:20 Last Admin: 04/23/22 13:45 Dose: Not Given Documented By: JEROD Potassium Chloride (Potassium Chloride 20 Meq/15 Ml Udc) 40 meq PO NOW STA Stop: 04/23/22 12:38 Last Admin: 04/23/22 14:20 Dose: 40 meq Documented By: JEROD Propofol (Propofol Iv Emulsion 10 Mg/Ml 20 Ml Vial) Confirm Administered Dose 400 mg IV .STK-MED ONE Stop: 04/23/22 12:20 Last Admin: 04/23/22 13:45 Dose: Not Given Documented By: [facility] Critical Care Time Critical Care Time: Yes Total Critical Care Time: 39 Critical care of 39 min performed to assess and manage high likelihood of life- threatening anemia, involving labs and imaging performed with assessment to evaluate anemia diagnosis with frequent reassessment. This time includes bedside time, treatment discussions with patient/family/consultants, docume ntation time and excludes procedure time. Medical Decision Making Differential Diagnosis Differential diagnoses includes but is not limited to pneumonia, bronchitis, COPD/Asthma exacerbation, pneumothorax, pulmonary embolism, congestive heart failure, acute coronary syndrome Medical Records Attestation: I reviewed the patient's medical records. Home Medications Current Medication List: was personally reviewed by me Laboratory Data Attestation: I reviewed the patient's lab results. Result diagrams: 04/23/22 07:09 04/23/22 07:09 Lab Results 04/22/22 04/22/22 04/22/22 Range/Units 13:40 13:40 13:40 WBC 4.05 L (4.8-10.8) K/ul RBC 2.31 L (3.93-5.22) M/uL Hgb 4.9 L* (12.0-16.0) g/dl Hct 17.4 L* (34.1-44.9) % MCV 75.3 L (80.0-100.0) fL MCH 21.2 L (25.0-34.0) pg MCHC 28.2 L (32.0-36.0) g/dL RDW Std Deviation 49.7 H (36.4-46.3) fL RDW Coeff of Jeremy 18.1 H (11.5-14.5) % Plt Count 101 L (130-400) K/uL MPV 11.4 (9.4-12.3) fL Immature Gran % (Auto) 0.2 % Neut % (Auto) 84.1 % Lymph % (Auto) 7.4 % Reagan % (Auto) 6.9 % Eos % (Auto) 1.2 % Baso % (Auto) 0.2 % Neut # (Auto) 3.40 (1.4-6.5) K/uL Lymph # (Auto) 0.30 L (1.2-3.4) K/uL Reagan # (Auto) 0.28 (0.24-0.82) K/uL Eos # (Auto) 0.05 (0-0.50) K/uL Baso # (Auto) 0.01 (0-0.2) K/uL Immature Gran # (Auto) 0.01 (0.00-0.02) K/uL Hypochromasia Present PT 11.3 (9.0-12.0) Seconds INR 1.1 (0.9-1.1) APTT 24.3 (21.0-31.0) Seconds PTT Ratio 0.9 Sodium 135 L (136-145) mmol/L Potassium 3.6 (3.5-5.1) mmol/L Chloride 103 (98-107) mmol/L Carbon Dioxide 24 (21-32) mmol/L Anion Gap 8 (3-11) BUN 15 (6-23) mg/dl Creatinine 0.42 L (0.6-1.2) mg/dl Est Cr Clr Drug Dosing 163.8 ml/min Est GFR ( Amer) 133.7 ml/min Est GFR (Non-Af Amer) 115.4 ml/min BUN/Creatinine Ratio 35.7 H (10-20) Glucose 93 (70-99(Fasting)) mg/dl Calcium 8.6 (8.5-10.1) mg/dl Magnesium 1.7 (1.7-2.4) mg/dl Iron (35-150) mcg/dl Transferrin (200-360) mg/dl Ferritin (8-388) ng/ml Total Bilirubin 0.6 (0.2-1.0) mg/dl AST 27 (13-39) U/L ALT 29 (7-52) U/L Alkaline Phosphatase 105 H (34-104) U/L Lactate Dehydrogenase (86-244) U/L Troponin I High Sens (0-14) pg/ml B-Natriuretic Peptide (0-100) pg/ml Total Protein 6.3 (6.0-8.3) gm/dl Albumin 3.8 (3.4-5.0) gm/dl Globulin 2.5 (2.5-4.0) gm/dl Albumin/Globulin Ratio 1.5 (0.9-2) Vitamin B12 (180-914) pg/ml Folate (>5.38) ng/ml Urine Opiates Screen (Neg) Ur Methadone, Qual (Neg) Urine Barbiturates (Neg) Ur Phencyclidine (PCP) (Neg) U Amphetamin/Meth Scrn (Neg) MDMA (Ecstasy) Screen (Neg) U Benzodiazepines Scrn (Neg) Ur Cocaine Metabolite (Neg) U Marijuana (THC) Screen (Neg) SARS-CoV-2 (PCR) (Negative) Influenza Type A (PCR) (Neg) Influenza Type B (PCR) (Neg) RSV (RT-PCR) (Neg) Blood Type Antibody Screen Crossmatch 04/22/22 04/22/22 04/22/22 Range/Units 13:40 13:40 13:40 WBC (4.8-10.8) K/ul RBC (3.93-5.22) M/uL Hgb (12.0-16.0) g/dl Hct (34.1-44.9) % MCV (80.0-100.0) fL MCH (25.0-34.0) pg MCHC (32.0-36.0) g/dL RDW Std Deviation (36.4-46.3) fL RDW Coeff of Jeremy (11.5-14.5) % Plt Count (130-400) K/uL MPV (9.4-12.3) fL Immature Gran % (Auto) % Neut % (Auto) % Lymph % (Auto) % Reagan % (Auto) % Eos % (Auto) % Baso % (Auto) % Neut # (Auto) (1.4-6.5) K/uL Lymph # (Auto) (1.2-3.4) K/uL Reagan # (Auto) (0.24-0.82) K/uL Eos # (Auto) (0-0.50) K/uL Baso # (Auto) (0-0.2) K/uL Immature Gran # (Auto) (0.00-0.02) K/uL Hypochromasia PT (9.0-12.0) Seconds INR (0.9-1.1) APTT (21.0-31.0) Seconds PTT Ratio Sodium (136-145) mmol/L Potassium (3.5-5.1) mmol/L Chloride (98-107) mmol/L Carbon Dioxide (21-32) mmol/L Anion Gap (3-11) BUN (6-23) mg/dl Creatinine (0.6-1.2) mg/dl Est Cr Clr Drug Dosing ml/min Est GFR ( Amer) ml/min Est GFR (Non-Af Amer) ml/min BUN/Creatinine Ratio (10-20) Glucose (70-99(Fasting)) mg/dl Calcium (8.5-10.1) mg/dl Magnesium (1.7-2.4) mg/dl Iron (35-150) mcg/dl Transferrin (200-360) mg/dl Ferritin (8-388) ng/ml Total Bilirubin (0.2-1.0) mg/dl AST (13-39) U/L ALT (7-52) U/L Alkaline Phosphatase (34-104) U/L Lactate Dehydrogenase (86-244) U/L Troponin I High Sens 53.4 H* (0-14) pg/ml B-Natriuretic Peptide 327 H (0-100) pg/ml Total Protein (6.0-8.3) gm/dl Albumin (3.4-5.0) gm/dl Globulin (2.5-4.0) gm/dl Albumin/Globulin Ratio (0.9-2) Vitamin B12 685 (180-914) pg/ml Folate 19.78 (>5.38) ng/ml Urine Opiates Screen (Neg) Ur Methadone, Qual (Neg) Urine Barbiturates (Neg) Ur Phencyclidine (PCP) (Neg) U Amphetamin/Meth Scrn (Neg) MDMA (Ecstasy) Screen (Neg) U Benzodiazepines Scrn (Neg) Ur Cocaine Metabolite (Neg) U Marijuana (THC) Screen (Neg) SARS-CoV-2 (PCR) (Negative) Influenza Type A (PCR) (Neg) Influenza Type B (PCR) (Neg) RSV (RT-PCR) (Neg) Blood Type Antibody Screen Crossmatch 04/22/22 04/22/22 04/22/22 Range/Units 13:40 13:40 14:59 WBC (4.8-10.8) K/ul RBC (3.93-5.22) M/uL Hgb 4.4 L* (12.0-16.0) g/dl Hct 15.5 L* (34.1-44.9) % MCV (80.0-100.0) fL MCH (25.0-34.0) pg MCHC (32.0-36.0) g/dL RDW Std Deviation (36.4-46.3) fL RDW Coeff of Jeremy (11.5-14.5) % Plt Count (130-400) K/uL MPV (9.4-12.3) fL Immature Gran % (Auto) % Neut % (Auto) % Lymph % (Auto) % Reagan % (Auto) % Eos % (Auto) % Baso % (Auto) % Neut # (Auto) (1.4-6.5) K/uL Lymph # (Auto) (1.2-3.4) K/uL Reagan # (Auto) (0.24-0.82) K/uL Eos # (Auto) (0-0.50) K/uL Baso # (Auto) (0-0.2) K/uL Immature Gran # (Auto) (0.00-0.02) K/uL Hypochromasia PT (9.0-12.0) Seconds INR (0.9-1.1) APTT (21.0-31.0) Seconds PTT Ratio Sodium (136-145) mmol/L Potassium (3.5-5.1) mmol/L Chloride (98-107) mmol/L Carbon Dioxide (21-32) mmol/L Anion Gap (3-11) BUN (6-23) mg/dl Creatinine (0.6-1.2) mg/dl Est Cr Clr Drug Dosing ml/min Est GFR ( Amer) ml/min Est GFR (Non-Af Amer) ml/min BUN/Creatinine Ratio (10-20) Glucose (70-99(Fasting)) mg/dl Calcium (8.5-10.1) mg/dl Magnesium (1.7-2.4) mg/dl Iron 15 L (35-150) mcg/dl Transferrin 432 H (200-360) mg/dl Ferritin 4.8 L (8-388) ng/ml Total Bilirubin (0.2-1.0) mg/dl AST (13-39) U/L ALT (7-52) U/L Alkaline Phosphatase (34-104) U/L Lactate Dehydrogenase 261 H (86-244) U/L Troponin I High Sens (0-14) pg/ml B-Natriuretic Peptide (0-100) pg/ml Total Protein (6.0-8.3) gm/dl Albumin (3.4-5.0) gm/dl Globulin (2.5-4.0) gm/dl Albumin/Globulin Ratio (0.9-2) Vitamin B12 (180-914) pg/ml Folate (>5.38) ng/ml Urine Opiates Screen (Neg) Ur Methadone, Qual (Neg) Urine Barbiturates (Neg) Ur Phencyclidine (PCP) (Neg) U Amphetamin/Meth Scrn (Neg) MDMA (Ecstasy) Screen (Neg) U Benzodiazepines Scrn (Neg) Ur Cocaine Metabolite (Neg) U Marijuana (THC) Screen (Neg) SARS-CoV-2 (PCR) (Negative) Influenza Type A (PCR) (Neg) Influenza Type B (PCR) (Neg) RSV (RT-PCR) (Neg) Blood Type Antibody Screen Crossmatch 04/22/22 04/22/22 04/22/22 Range/Units 14:59 15:22 15:36 WBC (4.8-10.8) K/ul RBC (3.93-5.22) M/uL Hgb (12.0-16.0) g/dl Hct (34.1-44.9) % MCV (80.0-100.0) fL MCH (25.0-34.0) pg MCHC (32.0-36.0) g/dL RDW Std Deviation (36.4-46.3) fL RDW Coeff of Jeremy (11.5-14.5) % Plt Count (130-400) K/uL MPV (9.4-12.3) fL Immature Gran % (Auto) % Neut % (Auto) % Lymph % (Auto) % Reagan % (Auto) % Eos % (Auto) % Baso % (Auto) % Neut # (Auto) (1.4-6.5) K/uL Lymph # (Auto) (1.2-3.4) K/uL Reagan # (Auto) (0.24-0.82) K/uL Eos # (Auto) (0-0.50) K/uL Baso # (Auto) (0-0.2) K/uL Immature Gran # (Auto) (0.00-0.02) K/uL Hypochromasia PT (9.0-12.0) Seconds INR (0.9-1.1) APTT (21.0-31.0) Seconds PTT Ratio Sodium (136-145) mmol/L Potassium (3.5-5.1) mmol/L Chloride (98-107) mmol/L Carbon Dioxide (21-32) mmol/L Anion Gap (3-11) BUN (6-23) mg/dl Creatinine (0.6-1.2) mg/dl Est Cr Clr Drug Dosing ml/min Est GFR ( Amer) ml/min Est GFR (Non-Af Amer) ml/min BUN/Creatinine Ratio (10-20) Glucose (70-99(Fasting)) mg/dl Calcium (8.5-10.1) mg/dl Magnesium (1.7-2.4) mg/dl Iron (35-150) mcg/dl Transferrin (200-360) mg/dl Ferritin (8-388) ng/ml Total Bilirubin (0.2-1.0) mg/dl AST (13-39) U/L ALT (7-52) U/L Alkaline Phosphatase (34-104) U/L Lactate Dehydrogenase (86-244) U/L Troponin I High Sens (0-14) pg/ml B-Natriuretic Peptide (0-100) pg/ml Total Protein (6.0-8.3) gm/dl Albumin (3.4-5.0) gm/dl Globulin (2.5-4.0) gm/dl Albumin/Globulin Ratio (0.9-2) Vitamin B12 (180-914) pg/ml Folate (>5.38) ng/ml Urine Opiates Screen Neg (Neg) Ur Methadone, Qual Neg (Neg) Urine Barbiturates Neg (Neg) Ur Phencyclidine (PCP) Neg (Neg) U Amphetamin/Meth Scrn Neg (Neg) MDMA (Ecstasy) Screen Neg (Neg) U Benzodiazepines Scrn Neg (Neg) Ur Cocaine Metabolite Pos H (Neg) U Marijuana (THC) Screen Pos H (Neg) SARS-CoV-2 (PCR) NEGATIVE (Negative) Influenza Type A (PCR) Negative (Neg) Influenza Type B (PCR) Negative (Neg) RSV (RT-PCR) Negative (Neg) Blood Type B Positive Antibody Screen NEGATIVE Crossmatch See Detail Imaging Data Radiologist's Impression: Chest X-Ray 04/22/22 14:40 XR chest 1V portable HISTORY: Shortness of breath. COMPARISON: Chest 01/30/2022. FINDINGS: No pneumothorax. No pleural effusions. The heart is mildly enlarged. There is perihilar interstitial/vascular thickening and patchy bibasilar airspace opacities, left greater than right. IMPRESSION: 1. Patchy bibasilar airspace opacities, left greater the right. This favors a pneumonia. 2. There is cardiomegaly and mild interstitial pulmonary edema. ACT 112: Negative or not required by law. Electronically signed by: Kenton Florian M.D. 04/22/2022 3:59 PM ECG Data Attestation: I personally reviewed and interpreted this ECG as follows: Indication: + SOB/dyspnea Rate (beats per minute): 88 Rhythm: + normal sinus ECG Intervals/blocks: + Normal QRS and + Normal QT ECG [place]: + Normal ECG ST segments: + Nonspecific ST abnormalities MDM Narrative An order was placed for continuous cardiac monitoring. The monitor shows a rate of _80_ with _normal sinus__ rhythm. This is a 57 yo male who presents due to dyspnea on exertion and lower extremity edema. VS stable. She denies SOB at rest. No hypoxia noted. Patient admits to substance abuse and hx of smoking. Labs with severe anemia noted. She denied change in stool or hx of anemia. Denies cardiac hx. Elevated troponin likely due to demand from anemia. No use of antiplatelet or anticoagulation therapy. Patient signed blood consent and 3 units ordered. Case discussed with hospitalist team for additional evaluation. Patient denied chest or abdominal pain. Exam otherwise reassuring. No other symptoms to suggest evolving pneumonia. CXR not consistent with pulmonary edema despite LE edema. Impression & Plan CUEVAS (dyspnea on exertion), Substance abuse, Anemia, Bilateral edema of lower extremity, Elevated troponin Discharge Plan Visit Data Chief Complaint: Shortness of Breath/Dyspnea Stated Complaint: SOB, LEG EDEMA ED Provider: Lucia Zapien Discharge Problem: CUEVAS (dyspnea on exertion), Substance abuse, Anemia, Bilateral edema of lower extremity, Elevated troponin Patient Disposition: Admitted As Inpatient Discharge Instructions Interventions: ED Discharge Assessment Last Done: 04/22/22 17:35
[2022-04-22 14:48] LABS: Basophils # (auto) 0.01 K/uL (0-0.2); Basophils % (auto) 0.2 %; Eosinophils # (auto) 0.05 K/uL (0-0.50); Eosinophils % (auto) 1.2 %; Hypochromasia Present; Immature Granulocytes # (auto) 0.01 K/uL (0.00-0.02); Immature Granulocytes % (auto) 0.2 %; Lymphocytes % (auto) 7.4 %; Monocytes # (auto) 0.28 K/uL (0.24-0.82); Monocytes % (auto) 6.9 %; Neutrophils % (auto) 84.1 %
[2022-04-22 15:13] LABS: Hematocrit (blood only) 15.5 % (34.1-44.9); Hemoglobin 4.4 g/dl (12.0-16.0)
[2022-04-22] MEDS ORDERED: SODIUM CHLORIDE 0.9% 250 ML IV PRN (15:31)
--- NOTE | 2022-04-22 16:01 | XRay Report ---
XR chest 1V portable HISTORY: Shortness of breath. COMPARISON: Chest 01/30/2022. FINDINGS: No pneumothorax. No pleural effusions. The heart is mildly enlarged. There is perihilar int erstitial/vascular thickening and patchy bibasilar airspace opacities, left greater than right. IMPRESSION: 1. Patchy bibasilar airspace opacities, left greater the right. This favors a pneumonia. 2. There is cardiomegaly and mild interstitial pulmonary edema. ACT 112: Negative or not required by law. Electronically signed by: Kenton Florian M.D. 04/22/2022 3:59 PM
--- NOTE | 2022-04-22 16:11 | Electrocardiogram Report ---
Test Reason : Blood Pressure : / mmHG Vent. Rate : 088 BPM Atrial Rate : 088 BPM P-R Int : 134 ms QRS Dur : 080 ms QT Int : 382 ms P-R-T Axes : 015 044 053 degrees QTc Int : 462 ms Normal sinus rhythm Normal ECG When compared with ECG of 30-JAN-2022 10:13, No significant change was found Confirmed by Eugenio Baldwin ([id number]) on 04/22/2022 4:11:22 PM Referred By: Confirmed By:Eugenio Baldwin
[2022-04-22 16:37] LABS: Influenza A virus by PCR Negative (Neg); Influenza B virus by PCR Negative (Neg); RSV by PCR Negative (Neg); SARS CoV2 RNA(COVID-19) InHosp NEGATIVE (Negative)
[2022-04-22 16:55] LABS: Folate (Folic Acid) 19.78 ng/ml (>5.38)
[2022-04-22 17:20] LABS: Ferritin 4.8 ng/ml (8-388)
[2022-04-22 17:21] LABS: Amphetamines+Metham, Urine Neg (Neg); Barbiturates, Urine Neg (Neg); Benzodiazepine, Urine Neg (Neg); Cocaine, Urine Pos (Neg); MDMA (Ecstacy), Urine Neg (Neg); Methadone, Urine Neg (Neg); Opiate, Urine Neg (Neg); Phencyclidine, Urine Neg (Neg)
--- NOTE | 2022-04-22 17:24 | History & Physical Report ---
Date of Service April 22, 2022 Assessment & Plan (1) Anemia: Plan: Suspect blood loss with acute Hgb drop of ~8 g over the last two months although unclear source - may be GI loss with intermittent change in stool color. - Admit to PCU - Transfuse 3 units as ordered in the ED - will order lasix 40 mg IV between 2nd and 3rd units as evidence of fluid overload pre-transfusion on exam and on chest x-ray - Repeat H&H post transfusion - Check stool for occult blood - Check iron studies, B12, folic acid, LDH - Will start protonix gtt in view of darker stools and ongoing reflux issues - Consult GI - clear liquid diet tonight then NPO after midnight for possible EGD tomorrow (2) Compensated HCV cirrhosis: Plan: - Consult GI - Check ammonia level due to confusion - pt reports that she was previously on Lactulose but stopped this for unknown reason (3) Substance abuse: Plan: Pt admits to use of marijuana, cocaine, and suboxone since discharge from rehab - urine drug screen pending (4) Encephalopathy: (5) GERD (gastroesophageal reflux disease): (6) Peripheral neuropathy: (7) Bipolar 2 disorder: (8) Personality disorder: (9) Asthma: Plan Continue other home medications as appropriate. Pt seen and reviewed with attending physician, Dr. Best. Plan of care discu ssed and as outlined above. Code Status: Full code DVT prophylaxis: SCDs since concern for active GI blood loss Arlette Sanchez PA-C History of Present Illness Chief Complaint: "getting winded easily" x 3 days Primary Care Provider: Martha Hernandez PA-C This is a 57 y/o female with a PMH of HCV cirrhosis, prior orbital blow-out fracture, prediabetes, bipolar 2 d/o, GERD, spinal stenosis, personality d/o, hx of polysubstance abuse, peripheral neuropathy, asthma, and chronic knee pain presented to the ED today with progressive CUEVAS and peripheral edema. Pt reports that about a week ago she developed LE edema to just below her knees - has had some mild dependent edema previously but reports it always improved with elevation where as this time it didn't. About three days ago, she developed CUEVAS with even minimal exertion, resolved with resting. Noted orthopnea. Has a chronic "smoker's cough" that is no worse than usual - denies hemoptysis. She notes that she was incarcerated a month ago and diagnosed with a "hernia" in her upper abdomen after she noticed a lump in the area. It is not painful. She also started craving ice constantly around the same time. She was at [facility] until a week ago but reports recurrent substance use since discharge, specifically marijuna, cocaine, and suboxone. Denies alcohol, heroin, or meth although she admits to using meth previously with a near fatal overdose. She denies signs of active bleeding, specifically no gingival bleeding, epistaxis, hemoptysis, vaginal bleeding, hematochezia, or recent injuries or wounds. Her bowel movements are daily and she describes them as green to brown, sometimes "like they have more iron in them" and being darker in color. Appetite is at baseline. Denies N/V. Has some ongoing heartburn/indigestion but no worse than usual. Denies dysphagia or unexpected weight changes. Some mild dizziness at times but no episodes of syncope. Prior EGD done 06/19/21 showed grade I varices lower third of the esophagus, normal stomach and duodenum. Pt does report taking Voltaren but unsure of dose. Allergies Allergy/AdvReac Type Severity Reaction Status Date / Time Sulfa (Sulfonamide Allergy Intermediate Hives Verified 01/30/22 16:12 Antibiotics) amitriptyline [From Elavil] AdvReac Intermediate INCREASES Verified 01/30/22 16:12 RESTLESS LEGS prednisone AdvReac Intermediate Vomiting Verified 01/30/22 16:12 quetiapine [From Seroquel] AdvReac Intermediate INCREASES Verified 01/30/22 16:12 RESTLESS LEGS tramadol AdvReac Intermediate INCREASES Verified 01/30/22 16:12 RESTLESS LEGS trazodone AdvReac Intermediate INCREASES Verified 01/30/22 16:12 RESTLESS LEGS Home Medications Medication Instructions Recorded Confirmed Type cyclobenzaprine 5 mg tablet 5 mg PO TID PRN Muscle Spasm 01/30/22 04/22/22 History pantoprazole 40 mg tablet,delayed 40 mg PO DAILYBB 01/30/22 04/22/22 History release cetirizine 10 mg tablet 10 mg PO DAILY 04/22/22 04/22/22 History citalopram 20 mg tablet 20 mg PO DAILY 04/22/22 04/22/22 History diclofenac sodium 1 % topical gel 4 g topical QID 04/22/22 04/22/22 History diclofenac sodium 50 mg 50 mg PO DAILY 04/22/22 04/22/22 History tablet,delayed release fluticasone propionate 50 2 spray intranasal DAILY 04/22/22 04/22/22 History mcg/actuation nasal spray,suspension gabapentin 800 mg tablet 800 mg PO TID 04/22/22 04/22/22 History lamotrigine 150 mg tablet 150 mg PO BID 04/22/22 04/22/22 History melatonin 10 mg tablet 50 mg PO HS 04/22/22 04/22/22 History mirtazapine 15 mg tablet (Remeron) 15 mg PO HS 04/22/22 04/22/22 History Past Med/Surg History Medical History Asthma Bipolar 2 disorder Compensated HCV cirrhosis Degenerative disc disease Encephalopathy Facial fracture due to fall Fracture of toe of right foot GERD (gastroesophageal reflux disease) Hematemesis Peripheral neuropathy Personality disorder Substance abuse Surgical History History of laparoscopic cholecystectomy History of removal of ovarian cyst Family History Aunt Breast cancer Uncle Cirrhosis Brother Stomach cancer Social History Smoking Status: Current every day smoker Tobacco Type: Cigarettes Cigarettes Per Day: 8; Tobacco Cessation Education Requested by Patient: Yes Hx Alcohol Use: No Hx Substance Use: Yes Non-Prescribed Medications: Crack / Cocaine, Marijuana and Other Non-Prescribed Medications Comment: Suboxone (8 mg strip over 2-3 days) Last Used Substance: Days (ago) Last Used Substance Other:: since discharge from rehab Preferred Language: Setsw[place] [employer] Required: No Beliefs That Will Affect Care: None Current Living Situation: Alone Other Information That Helps Us Care for You: No Feels Safe at Home: Yes Safety Concerns: Feels Safe At This Time Assistive Devices: None Review of Systems Review of Systems: All systems reviewed & are unremarkable except as noted in HPI & below Constitutional: + fatigue and + insomnia; no fever, no chills, no anorexia, no weight loss and no weight gain Eyes: no worsening vision Ear, Nose, Mouth, Throat: no epistaxis, no bleeding gums, no sore throat and no dysphagia Respiratory: + dyspnea on exertion; no cough and no wheezing Cardiovascular: + orthopnea, + lightheadedness and + edema; no chest pain, no palpitations and no syncope Gastrointestinal: as per Subjective / HPI Genitourinary: no dysuria and no hematuria Musculoskeletal: + joint pain (chronic knee pain); no back pain and no neck pain Integumentary: no yellowing of the skin Neurologic: + confusion (feels like she is more confused today, drowsy); no headache(s) Physical Exam Constitutional: no acute distress appears older than her stated age Eyes: + anicteric sclerae ENMT: Mouth: + dentition abnormality Neck: trachea midline Respiratory: no respiratory distress and no labored breathing Auscultation: + crackles (left > right basilar); no wheezes Cardiovascular: Rate/Rhythm: regular rate and regular rhythm Heart Sounds: + murmur Vessels: radial pulses present Extremities: + edema (trace to 1+ LE edema) Gastrointestinal (Abdomen): Inspection/Auscultation: + abdomen distended (mild) and normal bowel sounds Percussion/Palpation: abdomen soft; abdomen nontender superficial firm area in upper abdomen Musculoskeletal: Head/Neck/Chest: normocephalic, head atraumatic and neck supple Skin: no jaundice Neurologic: moves all extremities; no focal motor deficits drowsy during interview, slow responses to questions, difficulty with memory of recent events Results & Data Results & Data ([facility]) Vital Signs (Past 12 Hours) Vital Signs Temp Pulse Resp BP Pulse Ox O2 Del Method O2 Flow Rate 04/22/22 16:45 84 18 97 04/22/22 16:45 112/57 L 04/22/22 16:41 131/68 96 04/22/22 16:41 88 20 04/22/22 16:32 99 H 20 04/22/22 16:32 130/54 L 04/22/22 16:15 84 23 04/22/22 16:00 87 20 04/22/22 16:00 126/63 04/22/22 15:45 90 31 H 04/22/22 15:37 87 22 99 04/22/22 15:36 131/63 04/22/22 15:21 87 24 04/22/22 15:15 84 20 93 04/22/22 15:00 88 17 94 04/22/22 14:45 87 20 94 04/22/22 14:30 88 30 H 95 04/22/22 14:30 114/56 L 04/22/22 14:24 86 21 93 04/22/22 17:00 37.1 C 87 22 104/53 L 96 2 04/22/22 16:41 36.9 C 88 24 130/54 L 97 2 04/22/22 14:09 Room Air 04/22/22 14:09 21 93 Room Air 04/22/22 13:41 24 93 Room Air 04/22/22 13:41 Room Air 04/22/22 13:41 Room Air 04/22/22 13:42 36.5 C 93 H 24 145/59 H 94 Room Air Laboratory Results Laboratory Results - last 24 hr 04/22/22 04/22/22 04/22/22 13:40 13:40 13:40 WBC 4.05 L RBC 2.31 L Hgb 4.9 L* Hct 17.4 L* MCV 75.3 L MCH 21.2 L MCHC 28.2 L RDW Std Deviation 49.7 H RDW Coeff of Jeremy 18.1 H Plt Count 101 L MPV 11.4 Immature Gran % (Auto) 0.2 Neut % (Auto) 84.1 Lymph % (Auto) 7.4 Freestone % (Auto) 6.9 Eos % (Auto) 1.2 Baso % (Auto) 0.2 Neut # (Auto) 3.40 Lymph # (Auto) 0.30 L Freestone # (Auto) 0.28 Eos # (Auto) 0.05 Baso # (Auto) 0.01 Immature Gran # (Auto) 0.01 Hypochromasia Present PT 11.3 INR 1.1 APTT 24.3 PTT Ratio 0.9 Sodium 135 L Potassium 3.6 Chloride 103 Carbon Dioxide 24 Anion Gap 8 BUN 15 Creatinine 0.42 L Est Cr Clr Drug Dosing 163.8 Est GFR ( Amer) 133.7 Est GFR (Non-Af Amer) 115.4 BUN/Creatinine Ratio 35.7 H Glucose 93 Calcium 8.6 Magnesium 1.7 Iron Transferrin Ferritin Total Bilirubin 0.6 AST 27 ALT 29 Alkaline Phosphatase 105 H Lactate Dehydrogenase Troponin I High Sens B-Natriuretic Peptide Total Protein 6.3 Albumin 3.8 Globulin 2.5 Albumin/Globulin Ratio 1.5 Vitamin B12 Folate Urine Opiates Screen Ur Methadone, Qual Urine Barbiturates Ur Phencyclidine (PCP) U Amphetamin/Meth Scrn MDMA (Ecstasy) Screen U Benzodiazepines Scrn U Cocaine Confirm GC/MS Ur Cocaine Metabolite U Marijuana (THC) Screen U Marijuana THC Carboxy Drug Screen Comment SARS-CoV-2 (PCR) Influenza Type A (PCR) Influenza Type B (PCR) RSV (RT-PCR) Blood Type Antibody Screen Crossmatch 04/22/22 04/22/22 04/22/22 13:40 13:40 13:40 WBC RBC Hgb Hct MCV MCH MCHC RDW Std Deviation RDW Coeff of Jeremy Plt Count MPV Immature Gran % (Auto) Neut % (Auto) Lymph % (Auto) Freestone % (Auto) Eos % (Auto) Baso % (Auto) Neut # (Auto) Lymph # (Auto) Freestone # (Auto) Eos # (Auto) Baso # (Auto) Immature Gran # (Auto) Hypochromasia PT INR APTT PTT Ratio Sodium Potassium Chloride Carbon Dioxide Anion Gap BUN Creatinine Est Cr Clr Drug Dosing Est GFR ( Amer) Est GFR (Non-Af Amer) BUN/Creatinine Ratio Glucose Calcium Magnesium Iron Transferrin Ferritin Total Bilirubin AST ALT Alkaline Phosphatase Lactate Dehydrogenase Troponin I High Sens 53.4 H* B-Natriuretic Peptide 327 H Total Protein Albumin Globulin Albumin/Globulin Ratio Vitamin B12 685 Folate 19.78 Urine Opiates Screen Ur Methadone, Qual Urine Barbiturates Ur Phencyclidine (PCP) U Amphetamin/Meth Scrn MDMA (Ecstasy) Screen U Benzodiazepines Scrn U Cocaine Confirm GC/MS Ur Cocaine Metabolite U Marijuana (THC) Screen U Marijuana THC Carboxy Drug Screen Comment SARS-CoV-2 (PCR) Influenza Type A (PCR) Influenza Type B (PCR) RSV (RT-PCR) Blood Type Antibody Screen Crossmatch 04/22/22 04/22/22 04/22/22 13:40 13:40 14:59 WBC RBC Hgb 4.4 L* Hct 15.5 L* MCV MCH MCHC RDW Std Deviation RDW Coeff of Ejremy Plt Count MPV Immature Gran % (Auto) Neut % (Auto) Lymph % (Auto) Freestone % (Auto) Eos % (Auto) Baso % (Auto) Neut # (Auto) Lymph # (Auto) Freestone # (Auto) Eos # (Auto) Baso # (Auto) Immature Gran # (Auto) Hypochromasia PT INR APTT PTT Ratio Sodium Potassium Chloride Carbon Dioxide Anion Gap BUN Creatinine Est Cr Clr Drug Dosing Est GFR ( Amer) Est GFR (Non-Af Amer) BUN/Creatinine Ratio Glucose Calcium Magnesium Iron 15 L Transferrin 432 H Ferritin 4.8 L Total Bilirubin AST ALT Alkaline Phosphatase Lactate Dehydrogenase 261 H Troponin I High Sens B-Natriuretic Peptide Total Protein Albumin Globulin Albumin/Globulin Ratio Vitamin B12 Folate Urine Opiates Screen Ur Methadone, Qual Urine Barbiturates Ur Phencyclidine (PCP) U Amphetamin/Meth Scrn MDMA (Ecstasy) Screen U Benzodiazepines Scrn U Cocaine Confirm GC/MS Ur Cocaine Metabolite U Marijuana (THC) Screen U Marijuana THC Carboxy Drug Screen Comment SARS-CoV-2 (PCR) Influenza Type A (PCR) Influenza Type B (PCR) RSV (RT-PCR) Blood Type Antibody Screen Crossmatch 04/22/22 04/22/22 04/22/22 14:59 15:22 15:22 WBC RBC Hgb Hct MCV MCH MCHC RDW Std Deviation RDW Coeff of Jeremy Plt Count MPV Immature Gran % (Auto) Neut % (Auto) Lymph % (Auto) Freestone % (Auto) Eos % (Auto) Baso % (Auto) Neut # (Auto) Lymph # (Auto) Freestone # (Auto) Eos # (Auto) Baso # (Auto) Immature Gran # (Auto) Hypochromasia PT INR APTT PTT Ratio Sodium Potassium Chloride Carbon Dioxide Anion Gap BUN Creatinine Est Cr Clr Drug Dosing Est GFR ( Amer) Est GFR (Non-Af Amer) BUN/Creatinine Ratio Glucose Calcium Magnesium Iron Transferrin Ferritin Total Bilirubin AST ALT Alkaline Phosphatase Lactate Dehydrogenase Troponin I High Sens B-Natriuretic Peptide Total Protein Albumin Globulin Albumin/Globulin Ratio Vitamin B12 Folate Urine Opiates Screen Neg Ur Methadone, Qual Neg Urine Barbiturates Neg Ur Phencyclidine (PCP) Neg U Amphetamin/Meth Scrn Neg MDMA (Ecstasy) Screen Neg U Benzodiazepines Scrn Neg U Cocaine Confirm GC/MS Pending Ur Cocaine Metabolite Pos H U Marijuana (THC) Screen Pos H U Marijuana THC Carboxy Pending Drug Screen Comment Pending SARS-CoV-2 (PCR) Influenza Type A (PCR) Influenza Type B (PCR) RSV (RT-PCR) Blood Type B Positive Antibody Screen NEGATIVE Crossmatch See Detail 04/22/22 15:36 WBC RBC Hgb Hct MCV MCH MCHC RDW Std Deviation RDW Coeff of Jeremy Plt Count MPV Immature Gran % (Auto) Neut % (Auto) Lymph % (Auto) Freestone % (Auto) Eos % (Auto) Baso % (Auto) Neut # (Auto) Lymph # (Auto) Freestone # (Auto) Eos # (Auto) Baso # (Auto) Immature Gran # (Auto) Hypochromasia PT INR APTT PTT Ratio Sodium Potassium Chloride Carbon Dioxide Anion Gap BUN Creatinine Est Cr Clr Drug Dosing Est GFR ( Amer) Est GFR (Non-Af Amer) BUN/Creatinine Ratio Glucose Calcium Magnesium Iron Transferrin Ferritin Total Bilirubin AST ALT Alkaline Phosphatase Lactate Dehydrogenase Troponin I High Sens B-Natriuretic Peptide Total Protein Albumin Globulin Albumin/Globulin Ratio Vitamin B12 Folate Urine Opiates Screen Ur Methadone, Qual Urine Barbiturates Ur Phencyclidine (PCP) U Amphetamin/Meth Scrn MDMA (Ecstasy) Screen U Benzodiazepines Scrn U Cocaine Confirm GC/MS Ur Cocaine Metabolite U Marijuana (THC) Screen U Marijuana THC Carboxy Drug Screen Comment SARS-CoV-2 (PCR) NEGATIVE Influenza Type A (PCR) Negative Influenza Type B (PCR) Negative RSV (RT-PCR) Negative Blood Type Antibody Screen Crossmatch Diagnostic Findings Chest X-ray 04/22/22 - IMPRESSION: 1. Patchy bibasilar airspace opacities, left greater the right. This favors a pneumonia. 2. There is cardiomegaly and mild interstitial pulmonary edema. Code Status & VTE Plan VTE Prophylaxis Plan VTE Prophylaxis will be ordered: Yes Supervising Physician Co-Signing Physician Notes Pt was seen and examined. Agreed with Tracy CANTU exam, assessment and plan. 57 y/o female with a PMH of HCV cirrhosis, prediabetes, bipolar 2 d/o, GERD, spinal stenosis hx of polysubstance abuse, peripheral neuropathy, asthma, and chronic knee pain presented to the ED today with progressive CUEVAS and peripheral edema. Pt said about 3 days ago she developed SOB with minimal exertion with lower extremity edema. Pt said that she does not have any energy. She said that she cannot even walk from one side of her room to the other side without becoming SOB. She said that feels weak. She has not noticed any blood in her stools. She denies any hemoptysis or hematuria as well. She admitted that she did suboxone, marijuana but has not been drinking any alcohol. She said that she has been eating alot of ice. Denies any chest pain, palpitation, dizziness and fever. CXR on admission showed Patchy bibasilar airspace opacities, left greater the right. There is cardiomegaly and mild interstitial pulmonary edema. Lab on admission showed Hgb 4.4, Troponin 53.4, BNP 327, Iron level 15. Type and cross done and currently being transfused 3units PRBC. Will give Lasix 40mg IVx1. Will consult GI for possible EGD in am. Will make NPO after midnight. Troponin elevated possible due to demand ischemia due to low hgb. EKG showed no acute ischemic changes. Denies any chest pain. Will trend troponin. Her CXR showed patchy opacities, will start on Levaquin. Continue monitor closely. MD Estephania
[2022-04-22] MEDS ORDERED: FUROSEMIDE 40 MG/4 ML VIAL IV ONE (17:25)
[2022-04-22] MEDS ORDERED: PANTOPRAZOLE BOLUS/DRIP 1 EACH IV STA (17:28)
[2022-04-22] MEDS ORDERED: PANTOprazole 80 MG in DEXTROSE 5% 100 ML IV ONE (17:45)
[2022-04-22] MEDS ORDERED: ACETAMINOPHEN 325 MG TAB PO PRN (17:52)
[2022-04-22] MEDS ORDERED: levoFLOXacin/D5W 750 MG/150 ML BAG IV SCH (19:00)
[2022-04-22] MEDS: cefTRIAXone SODIUM 2,000 MG in DEXTROSE 5% 50 ML IV SCH (19:54)
[2022-04-22] MEDS: PANTOprazole 40 MG in DEXTROSE 5% 100 ML IV SCH ×2 (19:56→22:32)
[2022-04-22] MEDS ORDERED: cefTRIAXone SODIUM 2 MG in DEXTROSE 5% 50 ML IV SCH (20:00)
[2022-04-22] MEDS: DOXYCYCLINE HYCLATE 100 MG in DEXTROSE 5% 100 ML IV SCH (20:43)
[2022-04-22] MEDS: lamoTRIgine 100 MG TAB PO SCH (20:46)
[2022-04-22] MEDS: GABAPENTIN 800 MG TAB PO SCH (20:46)
[2022-04-22] MEDS: MIRTAZAPINE TAB 15 MG TAB PO SCH (20:47)
[2022-04-23] MEDS ORDERED: FUROSEMIDE 40 MG/4 ML VIAL IV ONE (00:45)
[2022-04-23 02:31] LABS: Hematocrit (blood only) 22.5 % (34.1-44.9); Hemoglobin 6.9 g/dl (12.0-16.0)
[2022-04-23] MEDS: PANTOprazole 40 MG in DEXTROSE 5% 100 ML IV SCH ×3 (03:23→13:57)
[2022-04-23 07:50] LABS: Albumin Globulin Ratio 1.6 (0.9-2); Albumin Level 3.7 gm/dl (3.4-5.0); Bilirubin,Total 1.1 mg/dl (0.2-1.0); Creatinine Clr Calc Pharmacy 129.7 ml/min; Est GFR (African American) 126.3 ml/min; Globulin 2.3 gm/dl (2.5-4.0); Potassium 3.2 mmol/L (3.5-5.1)
[2022-04-23 07:53] LABS: Basophils # (auto) 0.01 K/uL (0-0.2); Basophils % (auto) 0.3 %; Eosinophils # (auto) 0.04 K/uL (0-0.50); Hematocrit (blood only) 22.3 % (34.1-44.9); Immature Granulocytes # (auto) 0.01 K/uL (0.00-0.02); Immature Granulocytes % (auto) 0.3 %; Lymphocytes # (auto) 0.53 K/uL (1.2-3.4); Lymphocytes % (auto) 13.7 %; Mean Corpuscular Hgb Conc 31.4 g/dL (32.0-36.0); Mean Corpuscular Volume 76.4 fL (80.0-100.0); Monocytes # (auto) 0.41 K/uL (0.24-0.82); Monocytes % (auto) 10.6 %; Neutrophils # (auto) 2.87 K/uL (1.4-6.5); Neutrophils % (auto) 74.1 %; Platelet Count 89 K/uL (130-400); Platelet Estimate Decreased (Normal); Polychromasia 1+; RDW Coefficient of Variation 18.7 % (11.5-14.5); RDW Standard Deviation 52.2 fL (36.4-46.3); Red Blood Count 2.92 M/uL (3.93-5.22); White Blood Count 3.87 K/ul (4.8-10.8)
[2022-04-23 08:20] LABS: Hematocrit (blood only) 22.4 % (34.1-44.9); Hemoglobin 6.9 g/dl (12.0-16.0)
[2022-04-23] MEDS ORDERED: SODIUM CHLORIDE 0.9% 250 ML IV PRN (08:52)
--- NOTE | 2022-04-23 09:00 | Gastrointestinal Consultation ---
Date of Consultation April 23, 2022 Assessment & Plan (1) Anemia: Likely multifactorial being caused by cirrhosis/bone marrow suppression, possibly GAVE. Very unlikely to be a variceal bleed or ulcer dx as no gross GI bleeding. Plan EGD today. Due to hx of EV should have at least one dose of antibiotics prior to EGD and is on Ceftriaxone. Cont NPO, Pantoprazole drip. Further recommendations to follow endoscopy. Supervising Physician Co-Signing Physician Notes I have personally seen and examined the patient with ALONDRA Austin. Her note reflects my exam and findings. I agree with her impression and plan. After examining patient, she will need an upper endoscopy to look for high risk upper GI bleeding source. Cont to follow H/H. NPO. Sam Membreno M.D. History of Present Illness Reason for Consultation: Acute anemia, cirrhosis Requesting Physician: Emmy Sanchez PA-C Attending Physician: Alok Cavazos MD History of Present Illness Ms. Natacha Grande is a 57 yr old female pt of Martha Hernandez PA-C w a hx of HCV cirrhosis w Grade I EV (on EGD in Jul 2021), prediabetes, bipolar, GERD, spinal stenosis, substance abuse, peripheral neuropathy, asthma. She did not follow-up in the GI office for cirrhosis after her most recent admission last July. She presented to the emergency department yesterday for shortness of breath, severe fatigue. She reports in bilateral lower leg edema which began about a week ago. Shortness of breath and severe fatigue developed slowly during that week. She denies any gross GI bleeding. She has not had any nausea vomiting abdominal pain, red or black bowel movements. Eyes any history of bleeds, gum bleeds or excessive bruising. On arrival, hemoglobin was 4.9, having decreased to 4.4 with hydration. She received 3 units of RBCs. Hemoglobin this morning is 7.0. BUN is normal. INR is normal at 1.1. Tox + for cocaine and marijuana. Alcohol level was not checked, though she does not appear to be intoxicated or have any signs of withdrawal. Allergies Allergy/AdvReac Type Severity Reaction Status Date / Time Sulfa (Sulfonamide Allergy Intermediate Hives Verified 01/30/22 16:12 Antibiotics) amitriptyline [From Elavil] AdvReac Intermediate INCREASES Verified 01/30/22 16:12 RESTLESS LEGS prednisone AdvReac Intermediate Vomiting Verified 01/30/22 16:12 quetiapine [From Seroquel] AdvReac Intermediate INCREASES Verified 01/30/22 16:12 RESTLESS LEGS tramadol AdvReac Intermediate INCREASES Verified 01/30/22 16:12 RESTLESS LEGS trazodone AdvReac Intermediate INCREASES Verified 01/30/22 16:12 RESTLESS LEGS Home Medications Medication Instructions Recorded Confirmed Type cyclobenzaprine 5 mg tablet 5 mg PO TID PRN Muscle Spasm 01/30/22 04/22/22 History pantoprazole 40 mg tablet,delayed 40 mg PO DAILYBB 01/30/22 04/22/22 History release cetirizine 10 mg tablet 10 mg PO DAILY 04/22/22 04/22/22 History citalopram 20 mg tablet 20 mg PO DAILY 04/22/22 04/22/22 History diclofenac sodium 1 % topical gel 4 g topical QID 04/22/22 04/22/22 History diclofenac sodium 50 mg 50 mg PO DAILY 04/22/22 04/22/22 History tablet,delayed release fluticasone propionate 50 2 spray intranasal DAILY 04/22/22 04/22/22 History mcg/actuation nasal spray,suspension gabapentin 800 mg tablet 800 mg PO TID 04/22/22 04/22/22 History lamotrigine 150 mg tablet 150 mg PO BID 04/22/22 04/22/22 History melatonin 10 mg tablet 50 mg PO HS 04/22/22 04/22/22 History mirtazapine 15 mg tablet (Remeron) 15 mg PO HS 04/22/22 04/22/22 History Patient History Medical History Asthma Bipolar 2 disorder Compensated HCV cirrhosis Degenerative disc disease Encephalopathy Facial fracture due to fall Fracture of toe of right foot GERD (gastroesophageal reflux disease) Hematemesis Peripheral neuropathy Personality disorder Substance abuse Surgical History History of laparoscopic cholecystectomy History of removal of ovarian cyst Family History Aunt Breast cancer Uncle Cirrhosis Brother Stomach cancer Social History Smoking Status: Current every day smoker Tobacco Type: Cigarettes Cigarettes Per Day: 8; Tobacco Cessation Education Requested by Patient: Yes Hx Alcohol Use: No Hx Substance Use: Yes Non-Prescribed Medications: Crack / Cocaine, Marijuana and Other Non-Prescribed Medications Comment: Suboxone (8 mg strip over 2-3 days) Last Used Substance: Days (ago) Last Used Substance Other:: since discharge from rehab 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 Beliefs That Will Affect Care: None Current Living Situation: Alone Other Information That Helps Us Care for You: No Feels Safe at Home: Yes Safety Concerns: Feels Safe At This Time Assistive Devices: None Review of Systems Review of Systems: ROS: Gen: + weakness, +generalized fatigue Eyes: No eye redness, or pain, no recent vision changes Resp: No SOB, no cough Cardio:+ bilat lower leg edema; No palpitations/irregular beats, no chest pain GI: No abdominal pain, no nausea/vomiting, no blood in BMs : Denies pain on urination Skin: No jaundice, itching or new rashes Hem: denies any excessive bleeding/bruising. Ext: chronic neuropathic pain Physical Exam Constitutional: WD/WN, vitals as above Eyes: PERRL, conjunctivae normal, anicteric sclerae Neck: trachea midline, no thyromegaly Respiratory: normal respiratory effort, lungs clear to auscultation Cardiovascular: RRR, no murmur, no edema Gastrointestinal (Abdomen): Inspection/Auscultation: + abdomen distended (mild gaseous distention; no obvious ascites) and normal bowel sounds; no abdominal wall ecchymosis and no abdominal edema visible veins on the upper abdomen Skin: no rashes, warm and dry Neurologic: PERRL, EOMI, accommodation nl, no face palsy, no dysarthria Psychiatric: Slightly agitated and complaining about quality of the nursing care, but is awake, alert, oriented, and otherwise cooperative Lymphatic: no cervical or axillary lymphadenopathy Results & Data ([facility]) Vital Signs (Past 12 Hours) Vital Signs Temp Pulse Pulse Resp BP BP Pulse Ox 04/23/22 07:31 04/23/22 06:41 37.4 C 80 20 111/66 93 04/23/22 05:50 37.1 C 88 17 122/73 99 04/23/22 05:23 37.2 C 84 18 116/68 98 04/23/22 04:23 37.3 C 87 18 116/70 96 04/23/22 03:23 37.4 C 88 18 129/85 99 04/23/22 02:53 37.4 C 81 17 124/82 99 04/23/22 02:38 37.2 C 84 18 131/79 96 04/23/22 02:19 37.3 C 83 18 127/93 97 04/23/22 00:29 37.0 C 88 17 123/72 92 04/22/22 23:36 37.0 C 87 18 118/62 96 04/22/22 22:36 36.8 C 81 16 122/67 93 04/22/22 22:06 36.8 C 87 18 117/70 95 04/22/22 21:51 37.0 C 86 16 121/72 96 04/22/22 21:51 36.8 C 87 18 117/70 95 04/22/22 21:34 37.2 C 91 H 18 135/71 91 O2 Del Method 04/23/22 07:31 Room Air 04/23/22 06:41 Room Air 04/23/22 05:50 04/23/22 05:23 04/23/22 04:23 04/23/22 03:23 04/23/22 02:53 04/23/22 02:38 04/23/22 02:19 04/23/22 00:29 04/22/22 23:36 04/22/22 22:36 04/22/22 22:06 04/22/22 21:51 04/22/22 21:51 04/22/22 21:34 Laboratory Results WBC 3.8, Hb 7.0, HCT 22.3, PLT S 89, PT 11.3, INR 1.1, NA 133, K3.2, CL 102, CO2 23, BUN 8, CR 0.5, glucose 92 T bili 1.1, AST 24, ALT 25, alkaline phosphatase 91 Diagnostic Findings CXR 04/22/22 1. Patchy bibasilar airspace opacities, left greater the right. This favors a pneumonia. 2. There is cardiomegaly and mild interstitial pulmonary edema.
[2022-04-23] MEDS: DOXYCYCLINE HYCLATE 100 MG in DEXTROSE 5% 100 ML IV SCH ×2 (09:06→20:54)
[2022-04-23] MEDS: FLUTICASONE PROPIONATE NA SPR 16 GM BTL SCH (09:10)
--- NOTE | 2022-04-23 11:49 | Anesthesiology Consultation ---
Date of Service April 23, 2022 Assessment & Plan Chart Review Chart Review: Acceptable Risk for Surgery Consults Requested none History Surgery Operation Date: 04/23/22 15:30 Proposed Procedures p Esophagogastroduodenoscopy Dr Haseeb Membreno MD Height/Weight Height: 5 ft 3 in Weight: 83 kg Allergies Allergy/AdvReac Type Severity Reaction Status Date / Time Sulfa (Sulfonamide Allergy Intermediate Hives Verified 01/30/22 16:12 Antibiotics) amitriptyline [From Elavil] AdvReac Intermediate INCREASES Verified 01/30/22 16:12 RESTLESS LEGS prednisone AdvReac Intermediate Vomiting Verified 01/30/22 16:12 quetiapine [From Seroquel] AdvReac Intermediate INCREASES Verified 01/30/22 16:12 RESTLESS LEGS tramadol AdvReac Intermediate INCREASES Verified 01/30/22 16:12 RESTLESS LEGS trazodone AdvReac Intermediate INCREASES Verified 01/30/22 16:12 RESTLESS LEGS Medications Home Medications Medication Instructions Recorded Confirmed Last Taken cyclobenzaprine 5 mg tablet 5 mg PO TID PRN Muscle Spasm 01/30/22 04/22/22 Unknown pantoprazole 40 mg tablet,delayed 40 mg PO DAILYBB 01/30/22 04/22/22 Unknown release cetirizine 10 mg tablet 10 mg PO DAILY 04/22/22 04/22/22 Unknown citalopram 20 mg tablet 20 mg PO DAILY 04/22/22 04/22/22 Unknown diclofenac sodium 1 % topical gel 4 g topical QID 04/22/22 04/22/22 Unknown diclofenac sodium 50 mg 50 mg PO DAILY 04/22/22 04/22/22 Unknown tablet,delayed release fluticasone propionate 50 2 spray intranasal DAILY 04/22/22 04/22/22 Unknown mcg/actuation nasal spray,suspension gabapentin 800 mg tablet 800 mg PO TID 04/22/22 04/22/22 Unknown lamotrigine 150 mg tablet 150 mg PO BID 04/22/22 04/22/22 Unknown melatonin 10 mg tablet 50 mg PO HS 04/22/22 04/22/22 Unknown mirtazapine 15 mg tablet (Remeron) 15 mg PO HS 04/22/22 04/22/22 Unknown Active Medications Generic Name Dose Route Start Last Admin Trade Name Freq PRN Reason Stop Dose Admin Fluticasone Propionate 2 sprays 04/23/22 09:00 04/23/22 09:10 Fluticasone Propionate Na Spr 16 Gm Btl NA 05/23/22 08:59 2 sprays DAILY IRON Administration Gabapentin 800 mg 04/22/22 21:00 04/22/22 20:46 Gabapentin 800 Mg Tab PO 05/22/22 20:59 800 mg TID IRON Administration Pantoprazole Sodium 40 mg/ 100 mls @ 20 mls/hr 04/22/22 17:45 04/23/22 09:09 Dextrose IV 05/22/22 17:44 8 mg/hr Q5H RION 20 mls/hr Administration 8 MG/HR Doxycycline Hyclate 100 mg/ 110 mls @ 50 mls/hr 04/22/22 20:00 04/23/22 09:06 Dextrose IV 04/29/22 19:59 50 mls/hr Q12H IRON Administration Ceftriaxone Sodium 2,000 mg/ 70 mls @ 100 mls/hr 04/22/22 20:00 04/22/22 20:36 Dextrose IV 04/29/22 19:59 Infused Q24H IRON Infusion Protocol Lamotrigine 150 mg 04/22/22 21:00 04/22/22 20:46 Lamotrigine 100 Mg Tab PO 05/22/22 20:59 150 mg BID IRON Administration Mirtazapine 15 mg 04/22/22 21:00 04/22/22 20:47 Mirtazapine Tab 15 Mg Tab PO 05/22/22 20:59 15 mg HS IRON Administration Past Medical History Medical History Asthma Bipolar 2 disorder Compensated HCV cirrhosis Degenerative disc disease Encephalopathy Facial fracture due to fall Fracture of toe of right foot GERD (gastroesophageal reflux disease) Hematemesis Peripheral neuropathy Personality disorder Substance abuse Past Family History Family History Aunt Breast cancer Uncle Cirrhosis Brother Stomach cancer Past Surgical History Surgical History History of laparoscopic cholecystectomy History of removal of ovarian cyst Social History Smoking Status: Current every day smoker tobacco type: cigarettes Smoking cigarettes per day: 8 Hx Alcohol Use: No Alcohol type: beer Hx Substance Use: Yes substance use type: marijuana and crack/cocaine Last Used Substance: Days (ago) Last Used Substance Other:: since discharge from rehab Physical Exam Vital Signs Last Vital Signs Temp 37 C 04/23/22 11:30 Pulse 88 04/23/22 11:30 Resp 16 04/23/22 11:30 BP 125/70 04/23/22 11:30 Pulse Ox 94 04/23/22 11:30 O2 Del Method 04/23/22 07:31 O2 Flow Rate 2 04/22/22 17:35 Testing Laboratory Results 04/23/22 07:09 04/23/22 07:09 PT 11.3 Seconds (9.0-12.0) 04/22/22 13:40 INR 1.1 (0.9-1.1) 04/22/22 13:40 APTT 24.3 Seconds (21.0-31.0) 04/22/22 13:40 Blood Type B Positive 04/22/22 14:59 Antibody Screen NEGATIVE 04/22/22 14:59
--- NOTE | 2022-04-23 12:18 | History & Physical Report ---
Date of Service April 23, 2022 Assessment & Plan (1) Anemia: Plan: stable for EGD Admission and Anticipated Discharge Date Admission Date: April 22, 2022 History of Present Illness Chief Complaint: Blood loss anemia Primary Care Provider: Martha Hernandez PA-C Pt with blood loss anemia for EGD Allergies Allergy/AdvReac Type Severity Reaction Status Date / Time Sulfa (Sulfonamide Allergy Intermediate Hives Verified 01/30/22 16:12 Antibiotics) amitriptyline [From Elavil] AdvReac Intermediate INCREASES Verified 01/30/22 16:12 RESTLESS LEGS prednisone AdvReac Intermediate Vomiting Verified 01/30/22 16:12 quetiapine [From Seroquel] AdvReac Intermediate INCREASES Verified 01/30/22 16:12 RESTLESS LEGS tramadol AdvReac Intermediate INCREASES Verified 01/30/22 16:12 RESTLESS LEGS trazodone AdvReac Intermediate INCREASES Verified 01/30/22 16:12 RESTLESS LEGS Home Medications Medication Instructions Recorded Confirmed Type cyclobenzaprine 5 mg tablet 5 mg PO TID PRN Muscle Spasm 01/30/22 04/22/22 History pantoprazole 40 mg tablet,delayed 40 mg PO DAILYBB 01/30/22 04/22/22 History release cetirizine 10 mg tablet 10 mg PO DAILY 04/22/22 04/22/22 History citalopram 20 mg tablet 20 mg PO DAILY 04/22/22 04/22/22 History diclofenac sodium 1 % topical gel 4 g topical QID 04/22/22 04/22/22 History diclofenac sodium 50 mg 50 mg PO DAILY 04/22/22 04/22/22 History tablet,delayed release fluticasone propionate 50 2 spray intranasal DAILY 04/22/22 04/22/22 History mcg/actuation nasal spray,suspension gabapentin 800 mg tablet 800 mg PO TID 04/22/22 04/22/22 History lamotrigine 150 mg tablet 150 mg PO BID 04/22/22 04/22/22 History melatonin 10 mg tablet 50 mg PO HS 04/22/22 04/22/22 History mirtazapine 15 mg tablet (Remeron) 15 mg PO HS 04/22/22 04/22/22 History Past Med/Surg History Medical History Asthma Bipolar 2 disorder Compensated HCV cirrhosis Degenerative disc disease Encephalopathy Facial fracture due to fall Fracture of toe of right foot GERD (gastroesophageal reflux disease) Hematemesis Peripheral neuropathy Personality disorder Substance abuse Surgical History History of laparoscopic cholecystectomy History of removal of ovarian cyst Family History Aunt Breast cancer Uncle Cirrhosis Brother Stomach cancer Social History Smoking Status: Current every day smoker Tobacco Type: Cigarettes Cigarettes Per Day: 8; Tobacco Cessation Education Requested by Patient: Yes Hx Alcohol Use: No Hx Substance Use: Yes Non-Prescribed Medications: Crack / Cocaine, Marijuana and Other Non-Prescribed Medications Comment: Suboxone (8 mg strip over 2-3 days) Last Used Substance: Days (ago) Last Used Substance Other:: since discharge from rehab Preferred Language: Lithuanian 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 Beliefs That Will Affect Care: None Current Living Situation: Alone Other Information That Helps Us Care for You: No Feels Safe at Home: Yes Safety Concerns: Feels Safe At This Time Assistive Devices: None Physical Exam Constitutional: WD/WN, vitals as above Respiratory: normal respiratory effort, lungs clear to auscultation Cardiovascular: RRR, no murmur, no edema Gastrointestinal (Abdomen): normal bowel sounds, soft, nontender, no hepatosplenomegaly Results & Data ([facility] [place]) Vital Signs (Past 12 Hours) Vital Signs Temp Pulse Pulse Resp BP BP Pulse Ox 04/23/22 11:47 37.5 C 82 16 126/74 94 04/23/22 11:30 37 C 88 16 125/70 94 04/23/22 11:04 37.1 C 84 16 04/23/22 10:30 37.1 C 84 16 113/65 94 04/23/22 10:00 37.2 C 86 16 121/69 95 04/23/22 09:45 37.0 C 84 16 118/66 93 04/23/22 09:27 36.5 C 72 18 110/53 L 93 04/23/22 07:31 04/23/22 06:41 37.4 C 80 20 111/66 93 04/23/22 05:50 37.1 C 88 17 122/73 99 04/23/22 05:23 37.2 C 84 18 116/68 98 04/23/22 04:23 37.3 C 87 18 116/70 96 04/23/22 03:23 37.4 C 88 18 129/85 99 04/23/22 02:53 37.4 C 81 17 124/82 99 04/23/22 02:38 37.2 C 84 18 131/79 96 04/23/22 02:19 37.3 C 83 18 127/93 97 04/23/22 00:29 37.0 C 88 17 123/72 92 O2 Del Method 04/23/22 11:47 Room Air 04/23/22 11:30 04/23/22 11:04 04/23/22 10:30 04/23/22 10:00 04/23/22 09:45 04/23/22 09:27 04/23/22 07:31 Room Air 04/23/22 06:41 Room Air 04/23/22 05:50 04/23/22 05:23 04/23/22 04:23 04/23/22 03:23 04/23/22 02:53 04/23/22 02:38 04/23/22 02:19 04/23/22 00:29 Code Status & VTE Plan VTE Prophylaxis Plan VTE Prophylaxis will be ordered: Yes
[2022-04-23] MEDS ORDERED: PROPOFOL IV EMULSION 10 MG/ML 20 ML VIAL IV ONE (12:19)
[2022-04-23] MEDS ORDERED: LIDOCAINE 2% MPF LOCAL 5 ML VIAL INFIL ONE (12:19)
[2022-04-23] MEDS ORDERED: POTASSIUM CHLORIDE 20 MEQ/15 ML UDC PO STA (12:37)
--- NOTE | 2022-04-23 13:07 | Anesthesiology Progress Note ---
Date of Service April 23, 2022 Anesthesia Post Procedure Vital Signs Vital Signs: Temp Pulse Pulse Resp BP BP Pulse Ox 04/23/22 12:44 65 18 96/66 L 99 04/23/22 11:47 37.5 C 82 16 126/74 94 04/23/22 11:30 37 C 88 16 125/70 94 04/23/22 11:04 37.1 C 84 16 04/23/22 10:30 37.1 C 84 16 113/65 94 04/23/22 10:00 37.2 C 86 16 121/69 95 04/23/22 09:45 37.0 C 84 16 118/66 93 04/23/22 09:27 36.5 C 72 18 110/53 L 93 04/23/22 07:31 04/23/22 06:41 37.4 C 80 20 111/66 93 04/23/22 05:50 37.1 C 88 17 122/73 99 04/23/22 05:23 37.2 C 84 18 116/68 98 04/23/22 04:23 37.3 C 87 18 116/70 96 04/23/22 03:23 37.4 C 88 18 129/85 99 04/23/22 02:53 37.4 C 81 17 124/82 99 04/23/22 02:38 37.2 C 84 18 131/79 96 04/23/22 02:19 37.3 C 83 18 127/93 97 04/23/22 00:29 37.0 C 88 17 123/72 92 04/22/22 20:00 85 04/22/22 23:36 37.0 C 87 18 118/62 96 04/22/22 20:00 04/22/22 22:36 36.8 C 81 16 122/67 93 04/22/22 22:06 36.8 C 87 18 117/70 95 04/22/22 21:51 37.0 C 86 16 121/72 96 04/22/22 19:28 37.1 C 80 17 126/62 94 04/22/22 21:51 36.8 C 87 18 117/70 95 04/22/22 21:34 37.2 C 91 H 18 135/71 91 04/22/22 19:15 37.3 C 83 18 130/49 L 92 04/22/22 18:11 04/22/22 18:02 36.9 C 87 16 138/78 94 04/22/22 17:52 36.5 C 84 18 130/65 96 04/22/22 17:52 04/22/22 17:35 68 19 114/58 L 97 04/22/22 14:09 98 04/22/22 16:45 84 18 97 04/22/22 16:45 112/57 L 04/22/22 16:41 131/68 96 04/22/22 16:41 88 20 04/22/22 16:32 99 H 20 04/22/22 16:32 130/54 L 04/22/22 16:15 84 23 04/22/22 16:00 87 20 04/22/22 16:00 126/63 04/22/22 15:45 90 31 H 04/22/22 15:37 87 22 99 04/22/22 15:36 131/63 04/22/22 15:21 87 24 04/22/22 15:15 84 20 93 04/22/22 15:00 88 17 94 04/22/22 14:45 87 20 94 04/22/22 14:30 88 30 H 95 04/22/22 14:30 114/56 L 04/22/22 14:24 86 21 93 04/22/22 17:00 37.1 C 87 22 104/53 L 96 04/22/22 16:41 36.9 C 88 24 130/54 L 97 04/22/22 14:09 04/22/22 14:09 21 93 04/22/22 13:41 24 93 04/22/22 13:41 04/22/22 13:41 04/22/22 13:42 36.5 C 93 H 24 145/59 H 94 Pulse Ox O2 Del Method O2 Del Method O2 Flow Rate 04/23/22 12:44 Oxymask 10 04/23/22 11:47 Room Air 04/23/22 11:30 04/23/22 11:04 04/23/22 10:30 04/23/22 10:00 04/23/22 09:45 04/23/22 09:27 04/23/22 07:31 Room Air 04/23/22 06:41 Room Air 04/23/22 05:50 04/23/22 05:23 04/23/22 04:23 04/23/22 03:23 04/23/22 02:53 04/23/22 02:38 04/23/22 02:19 04/23/22 00:29 04/22/22 20:00 04/22/22 23:36 04/22/22 20:00 Room Air 04/22/22 22:36 04/22/22 22:06 04/22/22 21:51 04/22/22 19:28 Room Air 04/22/22 21:51 04/22/22 21:34 04/22/22 19:15 Room Air 04/22/22 18:11 Room Air 04/22/22 18:02 04/22/22 17:52 04/22/22 17:52 95 Room Air 04/22/22 17:35 Nasal Cannula 2 04/22/22 14:09 Nasal Cannula 2 04/22/22 16:45 04/22/22 16:45 04/22/22 16:41 04/22/22 16:41 04/22/22 16:32 04/22/22 16:32 04/22/22 16:15 04/22/22 16:00 04/22/22 16:00 04/22/22 15:45 04/22/22 15:37 04/22/22 15:36 04/22/22 15:21 04/22/22 15:15 04/22/22 15:00 04/22/22 14:45 04/22/22 14:30 04/22/22 14:30 04/22/22 14:24 04/22/22 17:00 2 04/22/22 16:41 2 04/22/22 14:09 Room Air 04/22/22 14:09 Room Air 04/22/22 13:41 Room Air 04/22/22 13:41 Room Air 04/22/22 13:41 Room Air 04/22/22 13:42 Room Air Transfer of Care Handoff Completed per policy Notes Mental Status: alert / awake / arousable and participated in evaluation Patient Amnestic to Procedure: Yes Nausea / Vomiting: adequately controlled Pain: adequately controlled Airway Patency, RR, SpO2: stable & adequate BP & HR: stable & adequate Hydration State: stable & adequate Anesthetic Complications: no major complications apparent
--- NOTE | 2022-04-23 13:31 | GI REPORT ---
Patient Name: Natacha Grande Procedure Date: 04/23/2022 12:30 PM Date of : 1965 Admit Type: Inpatient Age: 57 Gender: Female Attending MD: Sam Membreno MD Procedure: Upper GI endoscopy Providers: Sam Membreno MD Referring MD: Martha Hernandez Indications: Iron deficiency anemia secondary to chronic blood loss Medicines: See the Anesthesia note for documentation of the administered medications Complications: No immediate complications. Estimated Blood Loss: Estimated blood loss: none. Procedure: Pre-Anesthesia Assessment: - Prior to the procedure, a History and Physical was performed, and patient medications, allergies and sensitivities were reviewed. The patient's tolerance of previous anesthesia was reviewed. - The risks and benefits of the procedure and the sedation options and risks were discussed with the patient. All questions were answered and informed consent was obtained. - Patient identification and proposed procedure were verified prior to the procedure by the physician and the nurse. The procedure was verified in the pre-procedure area. - Pre-procedure physical examination revealed no contraindications to sedation. - After reviewing the risks and benefits, the patient was deemed in satisfactory condition to undergo the procedure. After obtaining informed consent, the endoscope was passed under direct vision. Throughout the procedure, the patient's blood pressure, pulse, and oxygen saturations were monitored continuously. The Endoscope was introduced through the mouth, and advanced to the third part of duodenum. The upper GI endoscopy was accomplished without difficulty. The patient tolerated the procedure well. Findings: Grade I varices were found in the lower third of the esophagus. Mild portal hypertensive gastropathy was found in the gastric body. The examined duodenum was normal. The cardia and gastric fundus were normal on retroflexion. Impression: - Grade I esophageal varices. - Mild portal hypertensive gastropathy. - Normal examined duodenum. - No specimens collected. - No blood seen on exam. Recommendation: - [facility] to [facility] for [facility] care. Sam Membreno M.D. Sam Membreno MD 04/23/2022 1:30:38 PM This report has been signed electronically. Note Initiated On: 04/23/2022 12:30 PM Number of Addenda: 0 I attest to the content of the Intraoperative Record and orders documented therein, exceptions below {[id number]}
[2022-04-23] MEDS: POTASSIUM CHLORIDE / WTR 10 MEQ/100 ML PLCT IV SCH (13:44)
[2022-04-23] MEDS: CETIRIZINE HCL 10 MG TABLET PO SCH (13:44)
[2022-04-23] MEDS: GABAPENTIN 800 MG TAB PO SCH ×3 (13:45→20:57)
[2022-04-23] MEDS: lamoTRIgine 100 MG TAB PO SCH ×2 (13:45→20:57)
[2022-04-23] MEDS: CITALOPRAM 20 MG TAB PO SCH (13:45)
--- NOTE | 2022-04-23 14:10 | Hospitalist Progress Note ---
Date of Service April 23, 2022 Assessment & Plan (1) Anemia: Plan 57-year-old female with PMH of HCV cirrhosis, prior orbital blowout fracture, prediabetes, bipolar 2 disorder, GERD, spinal stenosis, personality disorder, polysubstance abuse [current, last used heroine and marijuana on the day of arrival per patient], peripheral neuropathy, asthma, chronic knee pain presented to ED 04/23 with progressive dyspnea on exertion and peripheral edema. Dyspnea on exertion/mild pulmonary edema/pneumonia Acute on chronic anemia: likely blood loss, unclear source but likely GI with intermittent change in stool color. 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 Patient also noted orthopnea. Patient does have chronic smoker's cough, denies hemoptysis. Patient denies any history of bleeding including epistaxis/hemoptysis/vaginal bleeding/hematochezia/black stools/gingival bleeding/recent injuries or wounds. See moves bowels daily and describes them as green to brown mostly but sometimes being darker in color.Pt does report taking Voltaren but unsure of dose. Prior EGD done 06/19/21 showed grade I varices lower third of the esophagus, normal stomach and duodenum. Patient's hemoglobin around 12 in January 2022. Admitting hemoglobin of 4.9, BNP 327, CXR suggestive of bibasilar pneumonia. Admitting exam positive for LE pitting edema, admitting CXR with mild interstitial pulmonary edema Admitting troponin elevated, admitting EKG with no acute ST or T changes, likely demand ischemia due to acute illness. Pt w/ no chest pain. Admitting iron profile with low iron and low ferritin, normal vitamin B12 and folate level. Pt will need iron studies in 2 to 3 months and possible iron supplement at that time as patient is already getting blood for the time being. GI evaluated, EGD 04/23 with grade 1 esophageal varices, no blood seen on exam, normal examined duodenum, mild portal hypertensive gastropathy. Patient started on diet. Await FOBT. Maintain telemetry monitoring, ongoing blood transfusion for hemoglobin less than 7 or symptomatic anemia. Repeat H&H after transfusion and in p.m. continue with Protonix IV twice daily. Avoid NSAIDs. BNP elevated, will get echo to rule out heart failure, Lasix as needed due to ongoing blood transfusion and volume overload status. Patient on room air and comfortable respiratory bingham at bedside exam. Patient getting antibiotics Rocephin and doxycycline 04/22, continue the same for pneumonia Electrolyte abnormality: Monitor and replete. Polysubstance abuse: [facility] [employer] DESIGN[employer], reports recurrent substance use since discharge, specifically marijuana, cocaine, Suboxone. Denies alcohol, heroin or meth although she admitted to using meth previously with a near fatal overdose. Admitting urine toxicology positive for cocaine and marijuana. Negative for others. Pt counselled. Watch for withdrawal. CM to assist w/ resources. Compensated HCV cirrhosis: Admitting ammonia level WNL, patient reports that she was previously on lactulose but stopped this for unknown reason. Continue to monitor. Metabolic encephalopathy/toxic encephalopathy: On the background of acute illness and use of cocaine/marijuana before arrival. Expect to improve with improvement in above. Other chronic medical conditions: Peripheral neuropathy/bipolar 2 disorder/personality disorder/asthma --->>> continue with/resume home meds as an d when able. CODE STATUS: Full code DVT prophylaxis: SCDs, concern for GI bleed. Admission and Anticipated Discharge Date Admission Date: April 22, 2022 Subjective Patient seen and examined at bedside as a follow-up of acute on chronic anemia/suspected blood loss/unclear source, substance abuse history and compensated HCV cirrhosis and electrolyte abnormalities. Patient was lying in bed, on room air, oriented x3, was drowsy and going back to sleep multiple times during conversation, reports improvement in her lower extremity swelling, denies any pain or discomfort, denies any blood in the stool or black stool, endorses use of marijuana and cocaine yesterday prior to arrival, he snorts cocaine and smokes marijuana, denies headache or dizziness or chest pain or feeling of heart racing. Physical Exam Physical Exam: GENERAL: Alert and oriented x3. NAD, on RA. Drowsy HEENT: No pallor, no icterus. Pupils equal, round and reactive to light. Oral mucosa moist. NECK: No JVD, no neck masses. HEART: S1 and S2 heard. Regular rate and rhythm. Systolic murmur no gallop. RESPIRATORY SYSTEM: Normal AP diameter. No accessory muscle use. No wheezing, bibasilar crackles. ABDOMEN: Soft, bowel sounds present, mild epigastric tenderness, no distention. CENTRAL NERVOUS SYSTEM: No facial droop. Speech is clear. Obeys simple commands. Moves extremities. EXTREMITIES: RLE 2+ LLE 1+ pitting edema, no erythema seen. Results & Data Results & Data ([facility]) Vital Signs (Past 12 Hours) Vital Signs Temp Pulse Pulse Resp BP BP Pulse Ox 04/23/22 13:15 75 18 121/68 94 04/23/22 13:01 70 18 119/68 94 04/23/22 12:44 65 18 96/66 L 99 04/23/22 11:47 37.5 C 82 16 126/74 94 04/23/22 11:30 37 C 88 16 125/70 94 04/23/22 11:04 37.1 C 84 16 04/23/22 10:30 37.1 C 84 16 113/65 94 04/23/22 10:00 37.2 C 86 16 121/69 95 04/23/22 09:45 37.0 C 84 16 118/66 93 04/23/22 09:27 36.5 C 72 18 110/53 L 93 04/23/22 07:31 04/23/22 06:41 37.4 C 80 20 111/66 93 04/23/22 05:50 37.1 C 88 17 122/73 99 04/23/22 05:23 37.2 C 84 18 116/68 98 04/23/22 04:23 37.3 C 87 18 116/70 96 04/23/22 03:23 37.4 C 88 18 129/85 99 04/23/22 02:53 37.4 C 81 17 124/82 99 04/23/22 02:38 37.2 C 84 18 131/79 96 04/23/22 02:19 37.3 C 83 18 127/93 97 O2 Del Method O2 Flow Rate 04/23/22 13:15 Room Air 04/23/22 13:01 Room Air 04/23/22 12:44 Oxymask 10 04/23/22 11:47 Room Air 04/23/22 11:30 04/23/22 11:04 04/23/22 10:30 04/23/22 10:00 04/23/22 09:45 04/23/22 09:27 04/23/22 07:31 Room Air 04/23/22 06:41 Room Air 04/23/22 05:50 04/23/22 05:23 04/23/22 04:23 04/23/22 03:23 04/23/22 02:53 04/23/22 02:38 04/23/22 02:19
--- NOTE | 2022-04-23 14:19 | Electrocardiogram Report ---
Test Reason : Blood Pressure : / mmHG Vent. Rate : 079 BPM Atrial Rate : 079 BPM P-R Int : 146 ms QRS Dur : 086 ms QT Int : 404 ms P-R-T Axes : 028 046 047 degrees QTc Int : 463 ms Normal sinus rhythm Normal ECG When compared with ECG of 22-APR-2022 13:37, No significant change was found Confirmed by Maximus Tuttle ([id number]) on 04/23/2022 2:18:45 PM Referred By: REFERRED SELF Confirmed By:Maximus Tuttle
[2022-04-23] MEDS ORDERED: FUROSEMIDE INJ 20 MG/2 ML VIAL IV ONE (14:26)
[2022-04-23] MEDS: MIRTAZAPINE TAB 15 MG TAB PO SCH (20:58)
[2022-04-23] MEDS: cefTRIAXone SODIUM 2,000 MG in DEXTROSE 5% 50 ML IV SCH (20:59)
[2022-04-23 21:25] LABS: Hematocrit (blood only) 26.5 % (34.1-44.9); Hemoglobin 8.4 g/dl (12.0-16.0)
[2022-04-23] MEDS: PANTOprazole 40 MG in SYRINGE 0 ML IV SCH (21:43)
[2022-04-24 08:33] LABS: Albumin Globulin Ratio 1.5 (0.9-2); Albumin Level 3.6 gm/dl (3.4-5.0); Bilirubin,Total 0.5 mg/dl (0.2-1.0); Calcium 8.1 mg/dl (8.5-10.1); Creatinine Clr Calc Pharmacy 130.5 ml/min; Est GFR (African American) 126.3 ml/min; Globulin 2.4 gm/dl (2.5-4.0); Magnesium 1.6 mg/dl (1.7-2.4); Phosphorus 3.5 mg/dl (2.5-4.9); Potassium 3.2 mmol/L (3.5-5.1)
[2022-04-24 08:36] LABS: Hematocrit (blood only) 25.5 % (34.1-44.9); Hemoglobin 7.8 g/dl (12.0-16.0); Mean Corpuscular Hemoglobin 24.2 pg (25.0-34.0); Mean Corpuscular Hgb Conc 30.6 g/dL (32.0-36.0); Mean Corpuscular Volume 79.2 fL (80.0-100.0); Mean Platelet Volume 11.5 fL (9.4-12.3); Platelet Count 79 K/uL (130-400); RDW Coefficient of Variation 18.2 % (11.5-14.5); Red Blood Count 3.22 M/uL (3.93-5.22); White Blood Count 3.83 K/ul (4.8-10.8)
[2022-04-24 08:37] LABS: Basophils # (auto) 0.01 K/uL (0-0.2); Basophils % (auto) 0.3 %; Eosinophils # (auto) 0.09 K/uL (0-0.50); Eosinophils % (auto) 2.3 %; Immature Granulocytes # (auto) 0.02 K/uL (0.00-0.02); Immature Granulocytes % (auto) 0.5 %; Lymphocytes # (auto) 0.74 K/uL (1.2-3.4); Lymphocytes % (auto) 19.3 %; Monocytes # (auto) 0.31 K/uL (0.24-0.82); Monocytes % (auto) 8.1 %; Neutrophils # (auto) 2.66 K/uL (1.4-6.5); Neutrophils % (auto) 69.5 %; Polychromasia 1+
[2022-04-24] MEDS: FLUTICASONE PROPIONATE NA SPR 16 GM BTL SCH (09:56)
[2022-04-24] MEDS: CETIRIZINE HCL 10 MG TABLET PO SCH (09:56)
[2022-04-24] MEDS: DOXYCYCLINE HYCLATE 100 MG in DEXTROSE 5% 100 ML IV SCH (09:56)
[2022-04-24] MEDS: GABAPENTIN 800 MG TAB PO SCH ×2 (09:56→13:43)
[2022-04-24] MEDS: CITALOPRAM 20 MG TAB PO SCH (09:56)
[2022-04-24] MEDS: lamoTRIgine 100 MG TAB PO SCH (09:57)
[2022-04-24] MEDS: PANTOprazole 40 MG in SYRINGE 0 ML IV SCH (09:58)
[2022-04-24] MEDS: POTASSIUM CHLORIDE CRTAB 20 MEQ TABCR PO SCH ×2 (10:10→12:08)
[2022-04-24] MEDS: MAGNESIUM SULFATE / D5W 1 GM/100 ML BAG IV SCH ×3 (10:11→13:44)
[2022-04-24 14:39] LABS: Hematocrit (blood only) 25.8 % (34.1-44.9)
--- NOTE | 2022-04-24 15:14 | Discharge Summary ---
Discharge Summary Date of Service April 24, 2022 Notes For Next Care Provider Patient probably needs follow-up visit in 3 to 5 days upon discharge, and will likely need blood test CBC/CMP/magnesium level. Patient is treated for acute on chronic anemia likely secondary to GI bleed, no diclofenac tablets, patient is prescribed on diclofenac gel for her knee pain. Patient will need outpatient follow-up with GI for likely colonoscopy eval. Patient is also treated for pneumonia. Patient will need follow-up with her psychiatry. Patient has been counseled against polysubstance abuse and provided resources by our case mgr. Patient will need iron studies in 2 to 3 months. Medication Changes From Visit You are started on antibiotic for your pneumonia which will end on its own. Your diclofenac tablet has been discontinued. Avoid NSAIDs. You will need to take your pantoprazole twice a day. Admission HPI Per Admitting Provider Pt with blood loss anemia for EGD Admission Exam Per Admitting Provider Constitutional: no acute distress appears older than her stated age Eyes: + anicteric sclerae ENMT: Mouth: + dentition abnormality Neck: trachea midline Respiratory: no respiratory distress and no labored breathing Auscultation: + crackles (left > right basilar); no wheezes Cardiovascular: Rate/Rhythm: regular rate and regular rhythm Heart Sounds: + murmur Vessels: radial pulses present Extremities: + edema (trace to 1+ LE edema) Gastrointestinal (Abdomen): Inspection/Auscultation: + abdomen distended (mild) and normal bowel sounds Percussion/Palpation: abdomen soft; abdomen nontender superficial firm area in upper abdomen Musculoskeletal: Head/Neck/Chest: normocephalic, head atraumatic and neck supple Skin: no jaundice Neurologic: moves all extremities; no focal motor deficits drowsy during interview, slow responses to questions, difficulty with memory of recent events Principal Dx & Hospital Course #1 = Principal Diagnosis (1) Anemia: Plan 57-year-old female with PMH of HCV cirrhosis, prior orbital blowout fracture, prediabetes, bipolar 2 disorder, GERD, spinal stenosis, personality disorder, polysubstance abuse [current, last used heroine and marijuana on the day of arrival per patient], peripheral neuropathy, asthma, chronic knee pain presented to ED 04/23 with progressive dyspnea on exertion and peripheral edema. She was managed for the following Dyspnea on exertion/mild pulmonary edema/pneumonia Acute on chronic anemia: likely blood loss, unclear source but likely GI with intermittent change in stool color. 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 Patient also noted orthopnea. Patient does have chronic smoker's cough, denies hemoptysis. Patient denies any history of bleeding including epistaxis/hemoptysis/vaginal bleeding/hematochezia/black stools/gingival bleeding/recent injuries or wounds. See moves bowels daily and describes them as green to brown mostly but sometimes being darker in color.Pt does report taking Voltaren but unsure of dose. Prior EGD done 06/19/21 showed grade I varices lower third of the esophagus, normal stomach and duodenum. Patient's hemoglobin around 12 in January 2022. Admitting hemoglobin of 4.9, BNP 327, CXR suggestive of bibasilar pneumonia. Admitting exam positive for LE pitting edema, admitting CXR with mild interstitial pulmonary edema Admitting troponin elevated, admitting EKG with no acute ST or T changes, likely demand ischemia due to acute illness. Pt w/ no chest pain. Admitting iron profile with low iron and low ferritin, normal vitamin B12 and folate level. Pt will need iron studies in 2 to 3 months and possible iron supplement at that time as patient is already getting blood for the time being. GI evaluated, EGD 04/23 with grade 1 esophageal varices, no blood seen on exam, normal examined duodenum, mild portal hypertensive gastropathy. Patient moving bowels but seems FOBT not collected. Patient is status post 4 unit PRBC yesterday, hemoglobin has been stable around 8, patient used to take Voltaren tablet 3 times a day per patient, advised to avoid NSAIDs, patient to continue pantoprazole 40 Mg twice a day. BNP elevated, echo done and reviewed, no concern for CHF. Patient on room air and comfortable respiratory bingham at bedside exam. Patient getting antibiotics Rocephin and doxycycline 04/22, oral antibiotic upon discharge. Patient improving, afebrile. Electrolyte abnormality: Monitor and replete. 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 Denies alcohol, heroin or meth although she admitted to using meth previously with a near fatal overdose. Admitting urine toxicology positive for cocaine and marijuana. Negative for others. Pt counselled. Watch for withdrawal. CM to assist w/ resources. Compensated HCV cirrhosis: Admitting ammonia level WNL, patient reports that she was previously on lactulose but stopped this for unknown reason. Continue to monitor. Metabolic encephalopathy/toxic encephalopathy: On the background of acute illness and use of cocaine/marijuana before arrival. Resolved. Other chronic medical conditions: Peripheral neuropathy/bipolar 2 disorder/personality disorder/asthma --->>> continue with/resume home meds as and when able. CODE STATUS: Full code Ideally, I would like to monitor her electrolytes tomorrow and make sure her hemoglobin stays stable until tomorrow but patient adamant on going home or else she will leave AMA. Patient is being discharged with following instruction at the point of discharge: Follow-up with your primary care physician within a week time and likely you will need your blood test CBC/CMP/magnesium level. You likely have GI bleed secondary to excessive diclofenac tablet use, you will be discharged on pantoprazole twice a day, avoid any NSAIDs as discussed at bedside, you can use [id number] Voltaren gel locally for your knee pain. Follow-up with your GI doctor as an outpatient for evaluation for colonoscopy. If you have worsening lightheadedness/dizziness/blood in the stool, contact your PCP or emergency immediately. You will need blood iron studies in 2 to 3 months. For your pneumonia, you will be discharged on antibiotic, complete the course. Probiotics will be added. For your history of polysubstance abuse, please follow the recommendations from case mgr. Take your medications as prescribed. Discharge Exam GENERAL: Alert and oriented x3. NAD, on RA. Drowsy HEENT: No pallor, no icterus. Pupils equal, round and reactive to light. Oral mucosa moist. NECK: No JVD, no neck masses. HEART: S1 and S2 heard. Regular rate and rhythm. Systolic murmur no gallop. RESPIRATORY SYSTEM: Normal AP diameter. No accessory muscle use. No wheezing, bibasilar crackles. ABDOMEN: Soft, bowel sounds present, mild epigastric tenderness, no distention. CENTRAL NERVOUS SYSTEM: No facial droop. Speech is clear. Obeys simple commands. Moves extremities. EXTREMITIES: RLE 2+ LLE 1+ pitting edema, no erythema seen. Updated Medication List Medication Instructions Recorded Confirmed Type cyclobenzaprine 5 mg tablet 5 mg PO TID PRN Muscle Spasm 01/30/22 04/22/22 History cetirizine 10 mg tablet 10 mg PO DAILY 04/22/22 04/22/22 History citalopram 20 mg tablet 20 mg PO DAILY 04/22/22 04/22/22 History diclofenac sodium 50 mg 50 mg PO DAILY 04/22/22 04/22/22 History tablet,delayed release fluticasone propionate 50 2 spray intranasal DAILY 04/22/22 04/22/22 History mcg/actuation nasal spray,suspension gabapentin 800 mg tablet 800 mg PO TID 04/22/22 04/22/22 History lamotrigine 150 mg tablet 150 mg PO BID 04/22/22 04/22/22 History melatonin 10 mg tablet 50 mg PO HS 04/22/22 04/22/22 History mirtazapine 15 mg tablet (Remeron) 15 mg PO HS 04/22/22 04/22/22 History cefdinir 300 mg capsule 300 mg PO BID 5 days #10 caps 04/24/22 Rx diclofenac sodium 1 % topical gel 4 g topical QID #100 grams 04/24/22 Rx doxycycline hyclate 100 mg tablet 100 mg PO BID 5 days #10 tabs 04/24/22 Rx lactobacillus combination no.4 3 3,000 mmu cells PO DAILY 10 days 04/24/22 Rx billion cell capsule (Probiotic) #10 caps pantoprazole 40 mg tablet,delayed 40 mg PO BID 30 days #60 tabs 04/24/22 Rx release Hospital Stay Data Consultations 04/22/22 15:48 ED Decision to Admit Stat 04/22/22 17:52 Consult Gastroenterology Routine Procedures Performed Operation Date: 04/23/22 15:30 Actual Procedures p Esophagogastroduodenoscopy - Sam Membreno MD Pending Results Patient Have Any Pending Studies at Discharge: No Discharge Instructions Given to Patient (Per Discharging Provider) Follow-up with your primary care physician within a week time and likely you will need your blood test CBC/CMP/magnesium level. You likely have GI bleed secondary to excessive diclofenac tablet use, you will be discharged on pantoprazole twice a day, avoid any NSAIDs as discussed at bedside, you can use [id number] Voltaren gel locally for your knee pain. Follow-up with your GI doctor as an outpatient for evaluation for colonoscopy. If you have worsening lightheadedness/dizziness/blood in the stool, contact your PCP or emergency immediately. For your pneumonia, you will be discharged on antibiotic, complete the course. Probiotics will be added. For your history of polysubstance abuse, please follow the recommendations from case mgr. Take your medications as prescribed. Total Time Total Time Spent Total Time Spent (In Minutes): 45
[2022-04-26 08:16] LABS: Cocaine, Urine 14600 ng/mL (<100); Marijuana Quant, GCMS Urine 530 ng/mL (<5)
== END 2022-04-24 16:40 | disposition home or self-care (01) | DRG 811 ==
LOC: ED 13:26 → SUATTDRO 16:15 → 2S 16:15